=== PATIENT | female | born 1980 | race Caucasian/White ===

== ENCOUNTER 2025-09-28 14:09 | Observation (INO) | payer OTHER, SELFPAY ==
--- NOTE | ~2025-09-28 | CT_ITS ---
EXAMINATION: CT abdomen pelvis w con DATE: 09/28/2025 15:11 INDICATION: Left abdominal pain TECHNIQUE: Computed tomography (CT) of the abdomen and pelvis was performed with intravenous contrast. The dose-length product was 623.45 mGy-cm. Automated exposure control and iterative reconstruction technique were employed. COMPARISON: None. FINDINGS: Lung bases unremarkable. Heart size normal. No significant pleural or pericardial effusion. Fatty infiltration of the liver. The spleen, pancreas, adrenal glands and right kidney are unremarkable. There is delayed left nephrogram with left hydronephrosis secondary to obstructing 5 mm left UVJ stone. Nonobstructive bowel gas pattern. No significant vascular abnormality. No lymphadenopathy. Gallbladder is present. No free air or free fluid. There is grade 1 degenerative spondylolisthesis at L5-S1 secondary to facet hypertrophy. IMPRESSION: 1. Obstructing 5 mm left UVJ stone with mild hydronephrosis and delayed left renal nephrogram. Reviewed, dictated and finalized at location O. RIOR SURFACE INSULATION WORKER IMPRESSION: 1. Obstructing 5 mm left UVJ stone with mild hydronephrosis and delayed left re nal nephrogram.
--- NOTE | ~2025-09-28 | XR_ITS ---
EXAMINATION: XR abdomen/kub 1V DATE: 09/29/2025 09:54 INDICATION: Assess left ureteral stone location TECHNIQUE: A supine view of the abdomen on 2 radiographs was obtained. COMPARISON: None. FINDINGS: Residual excreted contrast from prior CT throughout the mildly dilated left renal collecting system and ureter extending to the level of the ureterovesicular junction presumably obscuring a persistently obstructing stone at this location. No other urolithiasis. Normal bowel gas pattern. Bones are unremarkable. IMPRESSION: 1. Contrast opacified mild left hydroureteronephrosis extending to the ureterovesicular junction and presumably obscuring a persistently obstructing stone at this location. Reviewed, dictated and finalized at location A. MATERIALS HANDLING PLANT OPERATOR IMPRESSION: 1. Contrast opacified mild left hydroureteronephrosis extending to the ureterov esicular junction and presumably obscuring a persistently obstructing stone at this location.
--- OUTSIDE RECORDS SUMMARY | 2025-09-28 14:12 | XMS_ITS | Clinical Summary ---
Author Organization [facility] Address [address] [place] [id number] Care Team Providers Care Industrial Health And Safety Professor Name Role Phone Unavailable Primary Care Provider Unavailabl e Allergies Active Allergy Reactions Criticality Noted Date Comments Lisinopril Unknown 04/30/2024 Social History Tobacco Use Types Packs/Day Years Used Date Smoking Tobacco: Never Assessed Comments Unknown Sex and Gender Information Value Date Recorded Sex Assigned at Not on file Legal Sex Female 3:21 PM CDT Gender Identity Not on file Sexual Orientation Not on file Plan of Treatment Health Maintenance Due Date Last Done Comments Cervical Cancer Screening Pa p Smear (Age 30 to 64) Every 3 Years 1978 Colorectal Cancer Screening Colonoscopy (10 Years) 1978 Annual Physical 1981 Hepatitis C 1996 DTaP, Tdap and Td Vaccines ( 1 - Tdap) 1997 Hepatitis B Vaccines (1 of 3 - 19+ 3-dose series) 1997 Cervical Cancer Screening Pa p with HPV Testing (Age 30 to 64) Every 5 Years 2008 Cervical Cancer Screening with HPV 2008 Mammogram Screening 2018 COVID-19 Vaccine ( - 2024-2 6 season) 2025 Influenza Adult (#1) 2025 Hepatitis A Vaccines Aged Out No long er eligible based on patient's age to complete this topic Meningococcal B Vaccine Aged Out No l onger eligible based on patient's age to complete this topic Meningococcal Vaccine Aged Out No yadira alexx eligible based on patient's age to complete this topic Pneumococcal Vaccine: Pediat rics (0 to 5 Years) and At-Risk Patients (6 to 49 Years) Aged Out No longer eligible b ased on patient's age to complete this topic RSV Immunizations Under 20 Months Aged Out No longer eligible based on patient's age to complete this topic [facility]
--- OUTSIDE RECORDS SUMMARY | 2025-09-28 14:12 | XMS_ITS | Encounter Summary ---
Author Organization [facility] Health Address [address] [place] [address] Care Team Providers Care Wood Boatbuilder Apprentice Name Role Phone Unavailable Primary Care Provider Unavailabl e Prior Encounters Date Type Department Care Team Description 10/26/2019 Converted CPS Chart Documents [facility] [address] [place] [phone] <No scans attached> 10/26/2019 Converted 13x Documents [facility] [id number] [place] [phone] <No scans attached> Plan of Treatment Not on file Procedures Procedure Name Priority Date/Time Associated Diagnosis Comments CANCELLED APPOINTMENT Routine 12/13/2021 12:00 AM PST CANCELLED APPOINTMENT Routine 12/13/2021 12:00 AM PST PERIO MAINTENANCE Routine 09/15/2021 12: 00 AM PST ORAL HYGIENE INSTRUCTIONS Routine 2020 12:00 AM PST TOPICAL APPLICATION OF FLUORIDE VARNISH Routine 09/15/2021 12:00 AM PST ORAL HYGIENE INSTRUCTIONS Routine 2020 12:00 AM PDT 1 MAGDA DECON Routine 06/16/2021 12:00 AM PDT LR PERIODONTAL SCALING AND ROOT PLANING - ONE TO THREE TEETH PER QUADRANT Routine 06/16/2021 12:00 AM PDT UL PERIODONTAL SCALING AND ROOT PLANING - ONE TO THREE TEETH PER QUADRANT Routine 06/16/2021 12:00 AM PDT UR ANTIBACT IRR/QUAD Routine 06/16/2021 12:00 AM PDT UL ANTIBACT IRR/QUAD Routine 06/16/2021 12:00 AM PDT LR ANTIBACT IRR/QUAD Routine 06/16/2021 12:00 AM PDT LL ANTIBACT IRR/QUAD Routine 06/16/2021 12:00 AM PDT TOPICAL APPLICATION OF FLUORIDE VARNISH Routine 06/16/2021 12:00 AM PDT PERIODIC ORAL EVALUATION - ESTABLISHED PATIENT Routine 06/15/2021 12:00 AM PDT BITEWINGS - FOUR RADIOGRAPHIC IMAGES Routine 06/15/2021 12:00 AM PDT ADDITIONAL X-RAY Routine 06/15/2021 12:0 0 AM PDT SINGLE X-RAY Routine 06/15/2021 12:00 AM PDT CANCELLED APPOINTMENT Routine 09/12/2020 12:00 AM PST OFFICE VISIT FOR OBSERVATION (DURING REGULARLY SCHEDULED HOURS) - NO OTHER SERVICES PERFORMED Routine 07/29/2020 12:00 AM PDT TOPICAL APPLICATION OF FLUORIDE VARNISH Routine 04/05/2020 12:00 AM PDT PROPHYLAXIS - ADULT Routine 04/05/2020 1 2:00 AM PDT PERIODIC ORAL EVALUATION - ESTABLISHED PATIENT Routine 04/05/2020 12:00 AM PDT MISSED APPOINTMENT Routine 03/29/2020 12 :00 AM PDT TOPICAL APPLICATION OF FLUORIDE VARNISH Routine 09/15/2019 12:00 AM PST PROPHYLAXIS - ADULT Routine 09/15/2019 1 2:00 AM PST PERIODIC ORAL EVALUATION - ESTABLISHED PATIENT Routine 09/15/2019 12:00 AM PST PANORAMIC RADIOGRAPHIC IMAGE Routine 09/15/2019 12:00 AM PST INTRAORAL - COMPREHENSIVE SERIES OF RADIOGRAPHIC IMAGES Routine 09/15/2019 12:00 AM PST INTRAORAL PHOTO Routine 09/15/2019 12:00 AM PST INTRAORAL PHOTO Routine 09/15/2019 12:00 AM PST INTRAORAL PHOTO Routine 09/15/2019 12:00 AM PST INTRAORAL PHOTO Routine 09/15/2019 12:00 AM PST Visit Diagnoses Not on file
--- OUTSIDE RECORDS SUMMARY | 2025-09-28 14:12 | XMS_ITS | Clinical Summary ---
Author Organization [facility] Health Address [address] [place] [address] Care Team Providers Care Senior Manager Mergers & Acquisitions Name Role Phone Unavailable Primary Care Provider Unavailabl e Social History Tobacco Use Types Packs/Day Years Used Date Smoking Tobacco: Never Assessed Comments Unknown Sex and Gender Information Value Date Recorded Sex Assigned at Not on file Legal Sex Female 2:37 AM PST Gender Identity Not on file Sexual Orientation Not on file Plan of Treatment Not on file
[2025-09-28 14:15] VITALS: BP 187/137; PULSE 72; RESP 24; TEMP 36.7; O2SAT 100
--- NOTE | 2025-09-28 14:21 | ED_ITS ---
HPI - Abdominal Pain General Chief Complaint: Abdominal Pain Stated Complaint: L flank pain Time Seen by Provider: 09/28/25 14:21 Source: patient Mode of arrival: ambulatory Limitations: no limitations History of Present Illness HPI narrative: Sudden onset of left abdominal pain radiating to left flank pain at rest started to hour prior to arrival associated with nausea diaphoresis and restlessness. History of [facility] ED, no history of abdominal surgery, denies any fever chills, diarrhea, constipation or history of abdominal surgery. Patient does not smoke or drink or use drugs. Related Data Home Medications ?Medication ?Instructions ?Recorded ?Confirmed ?Last Taken ?Type dextroamphetamine-amphetamine 10 10 mg PO DAILY 09/28/25 09/27/25 History mg tablet dextroamphetamine-amphetamine 20 20 mg PO DAILY@0630 1 11/29/24 09/28/25 09/27/25 History mg tablet dextroamphetamine-amphetamine 30 30 mg PO DAILY 09/28/25 09/27/25 History mg tablet Allergies Allergy/AdvReac Type Severity Reaction Status Date / Time No Known Allergies Allergy Verified 09/28/25 20:29 Review of Systems 2 Review of Systems: All systems reviewed & are unremarkable except as noted in HPI and below PMFSH Family History Family History Mother Bipolar 1 disorder Father Heart attack Diabetes mellitus Social History Social History Smoking status: Never smoker Alcohol intake: current Drinks per week: 2 Substance use: never Substance use type: does not use Lack of Transportation: No Lack of Food: Never True Current Housing: I Have Housing Concerned About Future Housing: No Difficulty Paying Gas/Electric Bills: No Difficulty Paying for Meds: No Currently Unemployed: No Education: Master's Degree or Higher Difficulty w/ Childcare or Family Care: No Spiritual care concerns: No Exam 2 Narrative: General appearance: Well-developed, well-nourished, restless, unable to sit still Skin: Normal color Head: Normocephalic, nontraumatic Eyes: Clear conjunctiva ENT: Oropharynx normal, ears normal, nose normal Neck: Supple, nontender Chest and respiratory: Airway patent, no respiratory distress, no accessory muscle use Heart: Regular rate/rhythm Abdomen: Soft, tenderness left lower quadrant and left flank, no guarding or rebound, quite bowel sounds Vascular: Normal peripheral pulses, normal capillary refill. Musculoskeletal: Normal range of motion, nontender back Neurologic: Alert and oriented ?3, MANAGER ACCESS is normal as tested, no gross motor deficit Course Consultations Urology: Time of Consult: 17:45 I have discussed the care of this patient with the following provider: A dmit to hospitalist Vital Signs Vital signs: Vital Signs Temperature 36.7 C 09/28/25 14:15 Pulse Rate 72 09/28/25 14:15 Respiratory Rate 24 H 09/28/25 14:15 Blood Pressure 187/137 H 09/28/25 14:15 Pulse Oximetry 100 09/28/25 14:15 Oxygen Delivery Room Air 09/28/25 14:15 Temperature 36.2 C L 09/28/25 20:32 Pulse Rate 75 09/28/25 20:32 Respiratory Rate 20 09/28/25 20:32 Blood Pressure 151/76 H 09/28/25 20:32 Pulse Oximetry 99 09/28/25 20:32 Oxygen Delivery Room Air 09/28/25 14:15 [facility] Narrative Medical decision making narrative: Patient came with sudden onset of left abdomen left flank pain prior to arrival Vital signs showing blood pressure 187/137 respiratory rate 24 otherwise within normal limit Physical examination consistent with tenderness left lower quadrant and left flank Differential diagnosis include kidney stone, urinary tract infection, diverticulitis, colitis, constipation, splenic infarction, renal infarction Blood workup today includes CBC, CMP, lipase showed WBC 12.3, potassium 3.2, otherwise within normal limit Urinalysis no evidence of infection In the ED patient received normal saline, Dilaudid 0.5 followed by Toradol 30 mg followed by Dilaudid 0.5 IV with Zofran. Patient pain keeps coming back. Admit to hospitalist, discussed with DIAGNOSIS LEFT KIDNEY STONE Differential Diagnosis Differential Diagnosis: ABOVE Lab Data [facility] Lab Attestation statement: I personally reviewed the patient's lab results. 09/28/25 14:34 09/28/25 14:34 Labs: Lab Results 09/28/25 09/28/25 09/28/25 Range/Units 14:34 15:49 16:05 WBC 12.3 H (4.5-10.0) K/mm3 RBC 4.87 (4.2-5.4) M/mm3 Hgb 14.4 (12.0-15.0) g/dL Hct 42.3 (37.0-47.0) % MCV 86.9 (80-100) fl MCH 29.6 (26-34) pg MCHC 34.0 (32-36) g/dl RDW 12.4 (11.5-14.5) % Plt Count 390 H (150-375) k/mm3 MPV 10.0 (7.4-10.4) fl Immature Gran % (Auto) 0.5 (0-0.5) % Neut % (Auto) 77.3 H (45.5-73.1) % Lymph % (Auto) 16.7 L (18.3-44.2) % [place] % (Auto) 4.7 (2.6-8.5) % Eos % (Auto) 0.6 (0-4.4) % Baso % (Auto) 0.2 (0.2-1.2) % Lymph # (Auto) 2.04 (0.9-3.2) K/mm3 [place] # (Auto) 0.6 (0.1-0.6) K/mm3 Eos # (Auto) 0.1 (0-0.3) K/mm3 Baso # (Auto) 0.0 (0.0-0.1) K/mm3 Abs Immat Gran (auto) 0.06 H (0.00-0.031) K/mm3 Absolute Neuts (auto) 9.5 H (1.3-6.7) K/mm3 Absolute Nucleated RBC 0.000 (0.0-0.012) K/mm3 Nucleated RBC % 0.0 (0.0-0.2) % Sodium 135 L (137-145) mmol/L Potassium 3.2 L (3.4-5.0) mmol/L Chloride 104 (98-107) mmol/L Carbon Dioxide 17 L (22-30) mmol/L Anion Gap 14 H (4-12) mmol/L BUN 16 (7-17) mg/dL Creatinine 0.82 (0.7-1.0) mg/dL Estim Creat Clear Calc 80 ml/min Estimated GFR > 60 (59 - ) Glucose 150 H (65-110) mg/dL Calcium 9.9 (8.4-10.2) mg/dL Total Bilirubin 0.7 (0.2-1.3) mg/dL AST 33 (14-36) U/L ALT 27 (6-35) U/L Alkaline Phosphatase 80 (38-126) U/L Total Protein 8.5 H (6.3-8.2) g/dL Albumin 4.8 (3.5-5.1) g/dL Lipase 100 (23-300) U/L Urine Color Yellow (Yellow) Urine Appearance Clear (Clear) Urine pH 6.0 (5.0-9.0) Ur Specific [place] > 1.045 H (1.001-1.035) Urine Protein Negative (Negative) mg/dL Urine Glucose (UA) Negative (Negative) mg/dL Urine Ketones 2+ H (Negative) mg/dL Ur Blood (Man) 2+ H (Negative) Urine Nitrate Negative (Negative) Urine Bilirubin Negative (Negative) Urine Urobilinogen 0.2 (<2.0) mg/dL Add Ur Microanalysis Reviewed Leukocyte Esterase Rfl 1+ H (Negative) MYRA/UL Urine RBC 6-10 H (0-2) /hpf Urine WBC 6-10 H (0-3) /hpf Ur Squamous Epith Cells Few (Few) /hpf Urine Bacteria 1+ H /hpf Urine Casts 0-2 POC Urine HCG, Qual Negative (Negative) Imaging Data Radiologist's impression: ITS Impressions Abdomen/Pelvis CT 09/28/25 15:15 IMPRESSION: 1. Obstructing 5 mm left UVJ stone with mild hydronephrosis and delayed left renal nephrogram. Critical Care Time Critical Care Time Critical Care Time: No Discharge Plan Discharge Clinical Impression: Kidney stone on left side Patient Disposition: Still a Patient Condition: Stable
[2025-09-28] MEDS: SODIUM CHLORIDE 0.9% IV 1,000 ML 999 ML IV CONT (14:32)
[2025-09-28] MEDS: HYDROmorphone HCL INJ (*CRX) 1 MG/ML SYR 0.5 MG IV PUSH ×4 (14:34→22:52)
[2025-09-28] MEDS: ONDANSETRON INJ 4 MG/2 ML VIAL IV PUSH (14:35)
[2025-09-28] MEDS: TAMSULOSIN HCL 0.4 MG CAPSULE PO (14:37)
[2025-09-28 14:47] LABS: Hematocrit 42.3 % (37.0-47.0); Hemoglobin 14.4 g/dL (12.0-15.0); Immature Granulocyte Percent A 0.5 % (0-0.5); Lymphocytes Absolute Auto 2.04 K/mm3 (0.9-3.2); Mean Corpuscular HGB Conc 34.0 g/dl (32-36); Mean Corpuscular Hemoglobin 29.6 pg (26-34); Mean Corpuscular Volume 86.9 fl (80-100); Nucleated Red Blood Cells Absolute Auto 0.000 K/mm3 (0.0-0.012); Nucleated Red Blood Cells Perc 0.0 % (0.0-0.2); Platelet Count Result 390 k/mm3 (150-375); Red Blood Count 4.87 M/mm3 (4.2-5.4); White Blood Count 12.3 K/mm3 (4.5-10.0)
[2025-09-28] MEDS: KETOROLAC 30 MG/ML VIAL (*BKC) IV PUSH (14:55)
--- NOTE | 2025-09-28 14:57 | PC.NURSE ---
Patient refusing to give urine at this time-aware that test needed for Ct scan-reports she will sign the waiver-CT is aware
[2025-09-28 14:58] LABS: Alanine Aminotransferase 27 U/L (6-35); Albumin Level 4.8 g/dL (3.5-5.1); Alkaline Phosphatase 80 U/L (38-126); Anion Gap 14 mmol/L (4-12); Aspartate Amino Transferase 33 U/L (14-36); Bilirubin,Total 0.7 mg/dL (0.2-1.3); Blood Urea Nitrogen 16 mg/dL (7-17); Calcium 9.9 mg/dL (8.4-10.2); Carbon Dioxide 17 mmol/L (22-30); Chloride 104 mmol/L (98-107); Estimated CRCL calculation 80 ml/min; Estimated Glomerular Filt Rate > 60; Glucose 150 mg/dL (65-110); Lipase 100 U/L (23-300); Potassium 3.2 mmol/L (3.4-5.0); Sodium 135 mmol/L (137-145); Total Protein 8.5 g/dL (6.3-8.2)
[2025-09-28 15:00] VITALS: BP 188/93; PULSE 63; RESP 20; O2SAT 100
[2025-09-28 16:07] LABS: BEDSIDEPREGUCG Negative (Negative)
[2025-09-28 16:42] LABS: Add Urine Microscopic? YES; Appearance Urine Clear (Clear); Glucose Urine UA Negative (Negative); Leukocyte Esterase Ur 1+ LEU/UL (Negative); Need Manual Microscopic Reviewed; Nitrate Urine Negative (Negative); Non Pathogenic Casts 0-2; Specific Grav Ur > 1.045 (1.001-1.035)
--- OUTSIDE RECORDS SUMMARY | 2025-09-28 16:59 | XMS_ITS | Clinical Summary ---
Author Organization [facility] Address [address] [place] [id number] Care Team Providers Care Human Relations Manager Name Role Phone Unavailable Primary Care Provider [...] patient's age to complete this topic Insurance [facility]
--- OUTSIDE RECORDS SUMMARY | 2025-09-28 16:59 | XMS_ITS | Encounter Summary ---
Author Organization [facility] Health Address [address] [place] [address] Care Team Providers Care Chief Building Inspector Name Role Phone Unavailable Primary Care Provider Unavailabl e Prior Encounters Date Type Department Care Team Description 10/26/2019 Converted CPS Chart Documents [facility] [address] [place] [phone] <No scans attached> 10/26/2019 Converted 13x Documents [facility] [address] [place] [phone] <No scans attached> Plan of Treatment [...]
--- OUTSIDE RECORDS SUMMARY | 2025-09-28 16:59 | XMS_ITS | Clinical Summary ---
Author Organization [facility] Health Address [address] [place] [address] Care Team Providers Care Intellectual Property Paralegal Name Role Phone Unavailable Primary Care Provider [...]
[2025-09-28 17:00] VITALS: BP 126/93; PULSE 93; RESP 18; O2SAT 99
[2025-09-28 18:00] VITALS: BP 145/80; PULSE 74; RESP 21; O2SAT 99
[2025-09-28] MEDS: cefTRIAXone 1 GM in SODIUM CHLORIDE 0.9% IV 50 ML 100 ML IVPB (18:21)
[2025-09-28] MEDS: SODIUM CHLORIDE 0.9% IV 1,000 ML 125 ML IV CONT (18:36)
[2025-09-28 19:44] VITALS: BP 149/84; PULSE 58; RESP 16; TEMP 36.5; O2SAT 98
--- NOTE | 2025-09-28 19:47 | WPCEDHO ---
ED Hand Off Checklist All vitals saved:Y IV Site documented:Y All med administrations documented:Y Triage Note Triage Note Patient here with sudden onset 09/28/25 14:15 left upper abdominal pain that radiates into her flank area, patient denies kidney stone history. Patient moaning and rolling around on stretcher with pain. Allergies No Known Allergies Allergy (Verified 09/28/25 14:31) Active Medications including assessments/comments Hydromorphone HCl (Hydromorphone Hcl Inj (*Crx) 1 Mg/Ml Syr) 0.5 mg IV PUSH Q4H PRN PRN Reason: Pain Rated 7-10 Last Admin: 09/28/25 18:36 Dose: 0.5 mg Documented By: LINDSEY MAR Pain Assessment Document 09/28/25 18:36 LINDSEY (Rec: 09/28/25 18:37 JERADB [id number]) Pain Evaluation Pain Evaluation Assessment Pain Scale Pain Scale Used Numeric (1 - 10) Order Parameters Order Parameters for Pain Level 4-6 (Moderate) Administering this Pain Med Self Report Pain Assessment Reported Pain Level 5 Pain Location Left Modifier Pain Location Abdomen Pain Description Aching,Sharp Pain Frequency Acute,Continuous Pain Radiation Back Pain Aggravating Changing Position Factors Pain Behaviors Grimacing Pain Score Pain Score 5: Self Report Sodium Chloride (Normal Saline Iv) 1,000 mls @ 125 mls/hr IV CONT .Q8H DEE Last Admin: 09/28/25 18:36 Dose: 125 mls/hr Documented By: LINDSEY Infusion/Titration Document 09/28/25 18:36 LINDSEY (Rec: 09/28/25 18:36 JERADB [id number]) Intake IV Site Peripheral Access Right Antecubital Container Volume 1,000 Waste Amount 0 Dosing Infusion Rate 125 Cumulative Dose Not Applicable Increase/Decrease Started Elapsed Time Elapsed Time ( 0m minutes) Administered/Completed Medications Discontinued Medications Hydromorphone HCl (Hydromorphone Hcl Inj (*Crx) 1 Mg/Ml Syr) 0.5 mg IV PUSH ONCE STA Stop: 09/28/25 14:27 Last Admin: 09/28/25 14:34 Dose: 0.5 mg Documented By: LINDSEY Hydromorphone HCl (Hydromorphone Hcl Inj (*Crx) 1 Mg/Ml Syr) 0.5 mg IV PUSH ONCE STA Stop: 09/28/25 16:05 Last Admin: 09/28/25 16:09 Dose: 0.5 mg Documented By: LINDSEY Sodium Chloride (Normal Saline Iv) 1,000 mls @ 999 mls/hr IV CONT .Q1H1M STA Stop: 09/28/25 15:29 Last Infusion: 09/28/25 15:42 Dose: Infused Documented By: Admin: 09/28/25 14:32 Dose: 999 mls/hr Documented By: LINDSEY Ceftriaxone Sodium 1 gm/ (Sodium Chloride) 50 mls @ 100 mls/hr IVPB ONCE STA Stop: 09/28/25 17:52 Last Infusion: 09/28/25 19:00 Dose: Infused Documented By: Admin: 09/28/25 18:21 Dose: 100 mls/hr Documented By: LINDSEY Ketorolac Tromethamine (Ketorolac 30 Mg/Ml Vial (*Bk)) 30 mg IV PUSH ONCE STA Stop: 09/28/25 14:53 Last Admin: 09/28/25 14:55 Dose: 30 mg Documented By: LINDSEY Ondansetron HCl (Ondansetron Inj 4 Mg/2 Ml Vial) 4 mg IV PUSH ONCE STA Stop: 09/28/25 14:27 Last Admin: 09/28/25 14:35 Dose: 4 mg Documented By: LINDSEY Tamsulosin HCl (Tamsulosin Hcl 0.4 Mg Capsule) 0.4 mg PO ONCE ONE Stop: 09/28/25 14:27 Last Admin: 09/28/25 14:37 Dose: 0.4 mg Documented By: LINDSEY Notes 09/28/25 14:57 Nurse Note by Lizy Case Patient refusing to give urine at this time-aware that test needed for Ct scan-reports she will sign the waiver-CT is aware Initialized on 09/28/25 14:57 - END OF NOTE Interventions/Assessments IV / Saline Lock, Insert Start: 09/28/25 14:20 Freq: STAT Status: Active Protocol: Document 09/28/25 14:30 LINDSEY (Rec: 09/28/25 14:30 LINDSEY [id number]) IV Assessment Peripheral Access Right Antecubital IV Catheter Access Initiated IV Insertion Date 09/28/25 IV Insertion Time 14:30 Catheter Gauge 18 IV Insertion 1 Attempts IV Site Assessment WNL IV Care and WNL Maintenance PA: Gastrointestinal Assessment Start: 09/28/25 14:52 Freq: Status: Active Protocol: Document 09/28/25 14:30 TLB (Rec: 09/28/25 18:21 TLB [id number]) GI Assessment Gastrointestinal Nausea,Pain Symptoms Description Tender All Quadrants Bowel Sounds Active Last Vital Signs Temperature 97.7 F 09/28/25 19:44 Pulse Rate 58 L 09/28/25 19:44 Respiratory Rate 16 09/28/25 19:44 Pulse Oximetry 98 09/28/25 19:44 Blood Pressure 149/84 H 09/28/25 19:44 Blood Pressure Mean 105 09/28/25 19:44 Oxygen Delivery Room Air 09/28/25 14:15 Weight 86.36 kg 09/28/25 14:15 Last Result - Abnormals Only WBC 12.3 K/mm3 (4.5-10.0) H 09/28/25 14:34 Plt Count 390 k/mm3 (150-375) H 09/28/25 14:34 Neut % (Auto) 77.3 % (45.5-73.1) H 09/28/25 14:34 Lymph % (Auto) 16.7 % (18.3-44.2) L 09/28/25 14:34 Abs Immat Gran (auto) 0.06 K/mm3 (0.00-0.031) H 09/28/25 14:34 Absolute Neuts (auto) 9.5 K/mm3 (1.3-6.7) H 09/28/25 14:34 Sodium 135 mmol/L (137-145) L 09/28/25 14:34 Potassium 3.2 mmol/L (3.4-5.0) L 09/28/25 14:34 Carbon Dioxide 17 mmol/L (22-30) L 09/28/25 14:34 Anion Gap 14 mmol/L (4-12) H 09/28/25 14:34 Glucose 150 mg/dL (65-110) H 09/28/25 14:34 Total Protein 8.5 g/dL (6.3-8.2) H 09/28/25 14:34 Ur Specific [place] > 1.045 (1.001-1.035) H 09/28/25 15:49 Urine Ketones 2+ mg/dL (Negative) H 09/28/25 15:49 Ur Blood (Man) 2+ (Negative) H 09/28/25 15:49 Leukocyte Esterase Rfl 1+ MYRA/UL (Negative) H 09/28/25 15:49 Urine RBC 6-10 /hpf (0-2) H 09/28/25 15:49 Urine WBC 6-10 /hpf (0-3) H 09/28/25 15:49 Urine Bacteria 1+ /hpf H 09/28/25 15:49 Most Recent Suicide Severity Rating Suicide Severity Rating NO RISK INDICATED 09/28/25 14:15
[2025-09-28 20:20] VITALS: BMI 31.6
--- NOTE | 2025-09-28 20:21 | ADMGEN ---
This patient, Rianna Raymundo, was admitted to Medical Room 246-. Patient/family oriented to hospital policies and general routines including ID bracelet, bed and alarms, visiting hours, pain management, procedures, bathroom and other care routines, personal items, smoking policy, room service/diet, and visiting hours. Information on how to activate the Rapid Response Team has been discussed. Patient/Family are encouraged to report perceived risks to care and to ask questions if they do not understand what they are told or what they should do.
[2025-09-28 20:32] VITALS: BP 151/76; PULSE 75; RESP 20; TEMP 36.2; O2SAT 99
[2025-09-29] MEDS: SODIUM CHLORIDE 0.9% IV 1,000 ML 125 ML IV CONT (02:22)
[2025-09-29 05:16] LABS: Hematocrit 38.1 % (37.0-47.0); Hemoglobin 12.6 g/dL (12.0-15.0); Mean Corpuscular HGB Conc 33.1 g/dl (32-36); Mean Corpuscular Hemoglobin 29.2 pg (26-34); Mean Corpuscular Volume 88.2 fl (80-100); Platelet Count Result 320 k/mm3 (150-375); Red Blood Count 4.32 M/mm3 (4.2-5.4); White Blood Count 8.8 K/mm3 (4.5-10.0)
[2025-09-29 05:40] LABS: Anion Gap 6 mmol/L (4-12); Blood Urea Nitrogen 12 mg/dL (7-17); Calcium 8.5 mg/dL (8.4-10.2); Carbon Dioxide 22 mmol/L (22-30); Chloride 107 mmol/L (98-107); Estimated CRCL calculation 61 ml/min; Estimated Glomerular Filt Rate 53; Glucose 83 mg/dL (65-110); Potassium 3.1 mmol/L (3.4-5.0); Sodium 135 mmol/L (137-145)
[2025-09-29 05:45] VITALS: BP 129/87; PULSE 87; RESP 20; TEMP 36.6; O2SAT 96
--- NOTE | 2025-09-29 07:05 | P.HP_ITS ---
H&P: HPI History of Present Illness Date/Time: 09/29/25 07:05 Chief Complaint: left flank pain Review of Systems Review of Systems: All systems reviewed & are unremarkable except as noted in HPI and below PMFSH Family History Family History Mother Bipolar 1 disorder Father Heart attack Diabetes mellitus Social History Social History Smoking status: Never smoker Alcohol intake: current Drinks per week: 2 Substance use: never Substance use type: does not use Lack of Transportation: No Lack of Food: Never True Current Housing: I Have Housing Concerned About Future Housing: No Difficulty Paying Gas/Electric Bills: No Difficulty Paying for Meds: No Currently Unemployed: No Education: Master's Degree or Higher Difficulty w/ Childcare or Family Care: No Spiritual care concerns: No Meds Home Medications and Allergies Home Medications ?Medication ?Instructions ?Recorded ?Confirmed ?Type dextroamphetamine-amphetamine 10 10 mg PO DAILY 09/28/25 History mg tablet dextroamphetamine-amphetamine 20 20 mg PO DAILY@0630 1 11/29/24 09/28/25 History mg tablet dextroamphetamine-amphetamine 30 30 mg PO DAILY 09/28/25 History mg tablet progesterone 1 cap PO HS 09/28/25 5 History tirzepatide 7.5 mg subcut WEEKLY 5 09/28/25 History Allergies Allergy/AdvReac Type Severity Reaction Status Date / Time No Known Allergies Allergy Verified 09/28/25 20:29 Vital Signs Vital Signs - 24 hr 09/28/25 14:15 09/28/25 15:00 09/28/25 17:00 Temperature 98.1 F Pulse Rate 72 63 93 Respiratory Rate 24 H 20 18 Blood Pressure 187/137 H 188/93 H 126/93 H Pulse Oximetry 100 100 99 Oxygen Delivery Room Air 09/28/25 18:00 09/28/25 19:44 09/28/25 20:32 Temperature 97.7 F 97.1 F L Pulse Rate 74 58 L 75 Respiratory Rate 21 H 16 20 Blood Pressure 145/80 H 149/84 H 151/76 H Pulse Oximetry 99 98 99 Oxygen Delivery 09/28/25 23:00 09/29/25 05:45 Temperature 97.8 F Pulse Rate 87 Respiratory Rate 20 Blood Pressure 129/87 Pulse Oximetry 96 Oxygen Delivery Room Air Exam Narrative: General: NAD Eyes: EOMI ENT: neck supple Cardiovascular: Regular rate and rhythm Respiratory: Clear to auscultation, respirations even and unlabored on RA Gastrointestinal: Soft, non tender Genitourinary: no suprapubic tenderness Musculoskeletal: No edema Skin: warm, dry Neuro: Alert. Psych: Mood appropriate Results Labs Labs: Short CBC 09/28/25 09/29/25 Range/Units 14:34 04:36 WBC 12.3 H 8.8 (4.5-10.0) K/mm3 Hgb 14.4 12.6 (12.0-15.0) g/dL Hct 42.3 38.1 (37.0-47.0) % Plt Count 390 H 320 (150-375) k/mm3 BMP 09/28/25 09/29/25 14:34 04:36 Sodium 135 L 135 L Potassium 3.2 L 3.1 L Chloride 104 107 Carbon Dioxide 17 L 22 BUN 16 12 Creatinine 0.82 1.10 H Glucose 150 H 83 Calcium 9.9 8.5 Liver Function 09/28/25 Range/Units 14:34 Total Bilirubin 0.7 (0.2-1.3) mg/dL AST 33 (14-36) U/L ALT 27 (6-35) U/L Alkaline Phosphatase 80 (38-126) U/L Albumin 4.8 (3.5-5.1) g/dL Urine 09/28/25 Range/Units 15:49 Urine Color Yellow (Yellow) Urine Appearance Clear (Clear) Urine pH 6.0 (5.0-9.0) Ur Specific [place] > 1.045 H (1.001-1.035) Urine Protein Negative (Negative) mg/dL Urine Glucose (UA) Negative (Negative) mg/dL Assessment and Plan Assessment and plan (1) Kidney stone on left side: Code(s): N20.0 - Calculus of kidney Status: Acute Assessment and Plan: - CT A/P with obstructing 5mm left UVJ with mild hydronephrosis - UA with 1+ LE, 6-10 WBC - continue IV Rocephin (2) Hydronephrosis, left: Code(s): N13.30 - Unspecified hydronephrosis Status: Acute Assessment and Plan: - CT as above (3) Hypokalemia: Code(s): E87.6 - Hypokalemia Status: Acute Assessment and Plan: - K+ 3.1 (4) GIFTY (acute kidney injury): Code(s): N17.9 - Acute kidney failure, unspecified Status: Acute Assessment and Plan: - Cr 1.1 - Baseline 0.82 Plan DVT prophylaxis: Dispo: Hospitalist MATTHEW Advance Care Plan I have confirmed that the patient's Advanced Care Plan is present, code status is documented, or surrogate decision maker is listed in patient medical record.: Yes Medication Reconciliation I have utilized all available resources to obtain, update and review the patients current medications (includes all prescriptions, OTC, herbals, cannabis, and nutritional supplements).: Yes The patient is not eligible for med reconciliation; the patient is in a emergent medical situation where delaying treatment would jeopardize the patients health.: No
[2025-09-29] MEDS: POTASSIUM CHLORIDE INJ 40 MEQ in SODIUM CHLORIDE 0.9% IV 500 ML 130 MEQ IVPB (09:26)
[2025-09-29] MEDS: TAMSULOSIN HCL 0.4 MG CAPSULE PO (09:31)
[2025-09-29 11:28] VITALS: O2SAT 97
--- NOTE | 2025-09-29 12:58 | WPDURCON ---
Assessment and Plan Assessment and plan (1) Kidney stone on left side: Code(s): N20.0 - Calculus of kidney Status: Acute (2) Hydronephrosis, left: Code(s): N13.30 - Unspecified hydronephrosis Status: Acute Plan -CT AP shows Obstructing 5 mm left UVJ stone with mild hydronephrosis -wbc wnl -cr 1.10 -KUB today shows the stone is still at the uvj. patient has had pain relief with no meds today. -Patient is ok to discharge. She is to strain her urine and bring stone with her to outpatient follow up in 2-4 weeks. -She should return to ER for fever/chills or intractable pain. -She should be discharged with tamsulosin daily, pain control meds, and antibiotic coverage. tailor to culture once resulted. Urology Consult Note HPI Date Seen: 09/29/25 Requesting Physician: Travis Bergman MD Primary Care Provider: PHYSICIAN NOT ON STAFF Consult Narrative Narrative: Rianna Raymundo is a 45 year old female Sudden onset of left abdominal pain radiating to left flank pain at rest started to hour prior to arrival associated with nausea diaphoresis and restlessness. History of ADH ED, no history of abdominal surgery, denies any fever chills, diarrhea, constipation or history of abdominal surgery. Patient reports she is much more comfortable today and the pain is much better. Review of Systems Review of Systems: flank pain has improved greatly today. All systems reviewed & are unremarkable except as noted in HPI and below PMFSH Family History Family History Mother Bipolar 1 disorder Father Heart attack Diabetes mellitus Social History Social History Smoking status: Never smoker Alcohol intake: current Drinks per week: 2 Substance use: never Substance use type: does not use Lack of Transportation: No Lack of Food: Never True Current Housing: I Have Housing Concerned About Future Housing: No Difficulty Paying Gas/Electric Bills: No Difficulty Paying for Meds: No Currently Unemployed: No Education: Master's Degree or Higher Difficulty w/ Childcare or Family Care: No Spiritual care concerns: No Meds Home Medications and Allergies Home Medications ?Medication ?Instructions ?Recorded ?Confirmed ?Type dextroamphetamine-amphetamine 10 10 mg PO DAILY 09/28/25 09/28/25 History mg tablet dextroamphetamine-amphetamine 20 20 mg PO DAILY@0630 09/28/25 09/28/25 History mg tablet dextroamphetamine-amphetamine 30 30 mg PO DAILY 09/28/25 09/28/25 History mg tablet progesterone 1 cap PO HS 09/28/25 09/28/25 History tirzepatide 7.5 mg subcut WEEKLY 09/28/25 09/28/25 History Allergies Allergy/AdvReac Type Severity Reaction Status Date / Time No Known Allergies Allergy Verified 09/28/25 20:29 Vital Signs Vital Signs - 24 hr 09/28/25 14:15 09/28/25 15:00 09/28/25 17:00 Temperature 98.1 F Pulse Rate 72 63 93 Respiratory Rate 24 H 20 18 Blood Pressure 187/137 H 188/93 H 126/93 H Pulse Oximetry 100 100 99 Oxygen Delivery Room Air 09/28/25 18:00 09/28/25 19:44 09/28/25 20:32 Temperature 97.7 F 97.1 F L Pulse Rate 74 58 L 75 Respiratory Rate 21 H 16 20 Blood Pressure 145/80 H 149/84 H 151/76 H Pulse Oximetry 99 98 99 Oxygen Delivery 09/28/25 23:00 09/29/25 05:45 09/29/25 09:30 Temperature 97.8 F Pulse Rate 87 Respiratory Rate 20 Blood Pressure 129/87 Pulse Oximetry 96 Oxygen Delivery Room Air Room Air 09/29/25 11:28 Temperature Pulse Rate Respiratory Rate Blood Pressure Pulse Oximetry 97 Oxygen Delivery Room Air Exam Const: General: comfortable and no acute distress HENMT: Face/Nose/Sinus: Normal nares present Eyes: General: appearance normal, both eyes and all related structures Pupils: Equal, round and reactive pupils present Resp: Effort & Inspection: normal respiratory effort Skin: General skin exam: normal color Neuro: General: gait normal Speech: normal speech Psych: Speech and movement: Normal speech and movement present Affect: normal affect Results Labs 09/29/25 04:36 09/29/25 04:36 Labs: Short CBC 09/28/25 09/29/25 Range/Units 14:34 04:36 WBC 12.3 H 8.8 (4.5-10.0) K/mm3 Hgb 14.4 12.6 (12.0-15.0) g/dL Hct 42.3 38.1 (37.0-47.0) % Plt Count 390 H 320 (150-375) k/mm3 BMP 09/28/25 09/29/25 14:34 04:36 Sodium 135 L 135 L Potassium 3.2 L 3.1 L Chloride 104 107 Carbon Dioxide 17 L 22 BUN 16 12 Creatinine 0.82 1.10 H Glucose 150 H 83 Calcium 9.9 8.5 Liver Function 09/28/25 Range/Units 14:34 Total Bilirubin 0.7 (0.2-1.3) mg/dL AST 33 (14-36) U/L ALT 27 (6-35) U/L Alkaline Phosphatase 80 (38-126) U/L Albumin 4.8 (3.5-5.1) g/dL Urine 09/28/25 Range/Units 15:49 Urine Color Yellow (Yellow) Urine Appearance Clear (Clear) Urine pH 6.0 (5.0-9.0) Ur Specific [place] > 1.045 H (1.001-1.035) Urine Protein Negative (Negative) mg/dL Urine Glucose (UA) Negative (Negative) mg/dL
[2025-09-29] MEDS: ACETAMINOPHEN 325 MG TABLET 650 MG PO (14:16)
--- NOTE | 2025-09-29 14:35 | P.SS_ITS ---
Same Day Admit/Disch: HPI History of Present Illness Chief complaint: Left renal stone, urinary tract infection of Narrative: Rianna Raymundo is a 45 year old female with PMH of ADHD who presented to the ER with complaints of left flank pain. Patient states her symptoms began suddenly yesterday and were associated with nausea. Also is complaining of some dysuria and frequency. Denies fevers, chills, vomiting, chest pain, shortness of breath. Patient was admitted for further urologic evaluation. In ED, CT A/P with obstructing 5mm left UVJ with mild hydronephrosis. UA with 1+ LE, 6-10 WBC, K+ 3.1, Cr. 1.1. [facility] Family History Family History Mother Bipolar 1 disorder Father Heart attack Diabetes mellitus Social History Social History Smoking status: Never smoker Alcohol intake: current Drinks per week: 2 Substance use: never Substance use type: does not use Lack of Transportation: No Lack of Food: Never True Current Housing: I Have Housing Concerned About Future Housing: No Difficulty Paying Gas/Electric Bills: No Difficulty Paying for Meds: No Currently Unemployed: No Education: Master's Degree or Higher Difficulty w/ Childcare or Family Care: No Spiritual care concerns: No Same Day Admit/Disch: Med Pre-admit Medications Home Medications ?Medication ?Instructions ?Recorded ?Confirmed ?Type dextroamphetamine-amphetamine 10 10 mg PO DAILY 09/28/25 History mg tablet dextroamphetamine-amphetamine 20 20 mg PO DAILY@0630 1 11/29/24 09/28/25 History mg tablet dextroamphetamine-amphetamine 30 30 mg PO DAILY 09/28/25 History mg tablet progesterone 1 cap PO HS 09/28/25 5 History tirzepatide 7.5 mg subcut WEEKLY 5 09/28/25 History acetaminophen 325 mg tablet 650 mg (2 x 325 mg) PO Q4H PRN 09/29/25 Rx Mild Pain (1-3) Or Fever 30 days #100 tabs cefpodoxime 200 mg tablet 200 mg PO BID #14 tabs 09/29 Rx fluconazole 150 mg tablet 150 mg PO ONCE #1 tablet Rx hydrocodone 5 mg-acetaminophen 325 1 tablet PO Q6H PRN pain #12 tabs 09/29/25 Rx mg tablet tamsulosin 0.4 mg capsule 0.4 mg PO QAM 14 days #14 ca ps 09/29/25 Rx Review of Systems Review of Systems All systems reviewed & are unremarkable except as noted in HPI and below Exam Narrative: General: NAD Eyes: EOMI ENT: neck supple Cardiovascular: Regular rate and rhythm Respiratory: Clear to auscultation, respirations even and unlabored on RA Gastrointestinal: Soft, non tender, mild L-sided abdominal tenderness Genitourinary: no suprapubic tenderness Musculoskeletal: No edema Skin: warm, dry Neuro: Alert. Psych: Mood appropriate DS: Data Data Completed and Pending Completed studies during hospitalization: ITS Impressions Abdomen/Pelvis CT 09/28/25 15:15 IMPRESSION: 1. Obstructing 5 mm left UVJ stone with mild hydronephrosis and delayed left renal nephrogram. Abdomen X-Ray 09/29/25 10:04 IMPRESSION: 1. Contrast opacified mild left hydroureteronephrosis extending to the ureterovesicular junction and presumably obscuring a persistently obstructing stone at this location. Labs on day of discharge: Labs from last 24 hours 09/29/25 09/28/25 09/28/25 04:36 16:05 15:49 WBC 8.8 RBC 4.32 Hgb 12.6 Hct 38.1 MCV 88.2 MCH 29.2 MCHC 33.1 RDW 12.5 Plt Count 320 MPV 10.6 H Immature Gran % (Auto) Neut % (Auto) Lymph % (Auto) [place] % (Auto) Eos % (Auto) Baso % (Auto) Lymph # (Auto) [place] # (Auto) Eos # (Auto) Baso # (Auto) Abs Immat Gran (auto) Absolute Neuts (auto) Absolute Nucleated RBC Nucleated RBC % Sodium 135 L Potassium 3.1 L Chloride 107 Carbon Dioxide 22 Anion Gap 6 BUN 12 Creatinine 1.10 H Estim Creat Clear Calc 61 Estimated GFR 53 L Glucose 83 Calcium 8.5 Total Bilirubin AST ALT Alkaline Phosphatase Total Protein Albumin Lipase Urine Color Yellow Urine Appearance Clear Urine pH 6.0 Ur Specific [place] > 1.045 H Urine Protein Negative Urine Glucose (UA) Negative Urine Ketones 2+ H Ur Blood (Man) 2+ H Urine Nitrate Negative Urine Bilirubin Negative Urine Urobilinogen 0.2 Add Ur Microanalysis Reviewed Leukocyte Esterase Rfl 1+ H Urine RBC 6-10 H Urine WBC 6-10 H Ur Squamous Epith Cells Few Urine Bacteria 1+ H Urine Casts 0-2 POC Urine HCG, Qual Negative 09/28/25 14:34 WBC 12.3 H RBC 4.87 Hgb 14.4 Hct 42.3 MCV 86.9 MCH 29.6 MCHC 34.0 RDW 12.4 Plt Count 390 H MPV 10.0 Immature Gran % (Auto) 0.5 Neut % (Auto) 77.3 H Lymph % (Auto) 16.7 L [place] % (Auto) 4.7 Eos % (Auto) 0.6 Baso % (Auto) 0.2 Lymph # (Auto) 2.04 [place] # (Auto) 0.6 Eos # (Auto) 0.1 Baso # (Auto) 0.0 Abs Immat Gran (auto) 0.06 H Absolute Neuts (auto) 9.5 H Absolute Nucleated RBC 0.000 Nucleated RBC % 0.0 Sodium 135 L Potassium 3.2 L Chloride 104 Carbon Dioxide 17 L Anion Gap 14 H BUN 16 Creatinine 0.82 Estim Creat Clear Calc 80 Estimated GFR > 60 Glucose 150 H Calcium 9.9 Total Bilirubin 0.7 AST 33 ALT 27 Alkaline Phosphatase 80 Total Protein 8.5 H Albumin 4.8 Lipase 100 Urine Color Urine Appearance Urine pH Ur Specific [place] Urine Protein Urine Glucose (UA) Urine Ketones Ur Blood (Man) Urine Nitrate Urine Bilirubin Urine Urobilinogen Add Ur Microanalysis Leukocyte Esterase Rfl Urine RBC Urine WBC Ur Squamous Epith Cells Urine Bacteria Urine Casts POC Urine HCG, Qual DS: Summary Hospital Course Reason for hospitalization: - L renal stone Hospital Course: Rianna Raymundo is a 45-year-old female with a history of ADHD who presented to the emergency department with sudden onset left flank pain radiating to the abdomen, associated with nausea, dysuria, and urinary frequency. She denied fevers, chills, vomiting, chest pain, or shortness of breath. In the ED, CT abdomen/pelvis demonstrated an obstructing 5 mm left ureterovesical junction stone with mild left hydronephrosis. Urinalysis showed 1+ leukocyte esterase with 6?10 WBCs. Initial labs were notable for hypokalemia (K 3.1) and a mild acute kidney injury with creatinine 1.1 compared to a baseline of 0.82. She was admitted for pain control, electrolyte management, and urologic evaluation. During hospitalization, she received IV fluids, IV potassium replacement, and IV ceftriaxone. Urology was consulted and recommended conservative management, as the patient?s pain significantly improved and she remained afebrile with stable vital signs and no leukocytosis. Renal function remained stable, and potassium was repleted. Given clinical improvement, she was deemed appropriate for discharge. She was transitioned to oral cefpodoxime for a total of 7 days, started on tamsulosin, and provided pain control medications. She was instructed to strain her urine, return for fever, chills, or intractable pain, and follow up with urology in 2?4 weeks. Urine culture results will be followed after discharge. Instructed to obtain repeat BMP in 7 days. Discharged home in stable condition. Time Spent with Patient Time attestation: Total time spent providing and/or coordinating discharge services: Time spent: Greater than 30 minutes DS: Admitting Diagnosis Discharge Date 09/29/25 Admitting Diagnosis - L renal stone - GIFTY - hypokalemia Discharge Plan Discharge Attending physician on discharge: Travis Bergman Consulting providers: Sarah, Christy; Donald Austin; Jayla Gray. Discharging Clinician: Jayla Gray Patient Disposition: Home Activity: may shower Diet: as tolerated Discharge Instructions: Diagnosis * Obstructed left kidney stone with associated urinary tract infection Medications * Pain control: * Use?acetaminophen (Tylenol)?over the counter for pain. * Do NOT exceed 4,000 mg of acetaminophen in 24 hours, including acetaminophen contained in combination medications. * [place]?may be used for breakthrough pain as prescribed (contains acetaminophen?count toward daily total). * Avoid NSAIDs, including?ibuprofen (Advil, Motrin),?naproxen (Aleve),?d iclofenac, and?ketorolac (Toradol). * Take antibiotics exactly as prescribed until completed. Activity and Diet * Drink plenty of fluids unless otherwise instructed. * Resume activity as tolerated. Stone Management * Strain all urine?and save any stone fragments for urology follow-up. When to Seek Care * Fever >=00.4?F (38?C), chills * Worsening or uncontrolled pain * Nausea or vomiting preventing oral intake * Difficulty urinating, decreased urine output, or blood clots in urine * New or worsening flank pain Follow-Up * Follow up with?Urology?in 2- 4 weeks. * Follow up with primary care in 1 week. Have lab work repeated to recheck kidney function prior to this appointment. * We will follow your urine culture results and call you if any antibiotic changes need to be made. If you have questions or concerns, contact your care team. Patient Instructions: Antibiotic Form Patient Language: Kosovan Stand Alone Forms: General Discharge Information Follow-up/Referrals: Coster, Christy [Other] - Call for Appointment Referral Note: 1 week, repeat BMP to recheck kidney function Shannon Khan APRN [Advanced Practice Nurse, Urology] - Call for Appointment Referral Note: 2-4 weeks Discharge Medications: New acetaminophen 325 mg Tablet 650 mg PO Q4H PRN (Reason: Mild Pain (1-3) Or Fever) 30 Days Qty: 100 0RF tamsulosin 0.4 mg Capsule 0.4 mg PO QAM 14 Days Qty: 14 0RF hydrocodone-acetaminophen 5-325 mg tablet 1 tablet PO Q6H PRN (Reason: pain) Qty: 12 0RF cefpodoxime 200 mg tablet 200 mg PO BID Qty: 14 0RF Rx Instructions: must administer with a meal/food fluconazole 150 mg tablet 150 mg PO ONCE Qty: 1 0RF Rx Instructions: as a single dose Continued dextroamphetamine-amphetamine 20 mg tablet 20 mg PO DAILY@0630 dextroamphetamine-amphetamine 30 mg tablet 30 mg PO DAILY Patient Comments: 10 am dextroamphetamine-amphetamine 10 mg tablet 10 mg PO DAILY Patient Comments: 3pm progesterone 200 mg 1 cap PO HS tirzepatide 16.6 mg 7.5 mg subcut WEEKLY Rx Instructions: weekly on saturday Date of admission: 09/28/25 17:46 Primary Care Provider: PHYSICIAN NOT ON STAFF,NONSTAFF Admitting Provider: Travis Bergman Attending physician on admission: Travis Bergman Condition: Stable Hospitalist MIPS Advance Care Plan I have confirmed that the patient's Advanced Care Plan is present, code status is documented, or surrogate decision maker is listed in patient medical record.: Yes Medication Reconciliation I have utilized all available resources to obtain, update and review the patients current medications (includes all prescriptions, OTC, herbals, cannabis, and nutritional supplements).: Yes The patient is not eligible for med reconciliation; the patient is in a emergent medical situation where delaying treatment would jeopardize the patients health.: No
== END 2025-09-29 14:30 | disposition home or self-care (01) ==
LOC: ANHED 17:45 → ANH2MED 19:29
PROVIDERS: Internal Medicine; Physician Assistant; Admitting Provider Internal Medicine; Emergency Provider Emergency Medicine; Visit Provider Internal Medicine
DX: N20.0 Calculus of kidney (principal); N13.30 Unspecified hydronephrosis; Z79.85 Long-term (current) use of injectable non-insulin antidiabetic drugs
CPT/HCPCS: 36415; 74018; 74177; 80048; 80053; 81001; 81025; 83690; 85025; 85027; 87086; 96361; 96365; 96374; 96375; 96376; 99285; A9270; G0378; J0696; J1171; J1885; J2405; J3480; J7030; J7040; Q9967

== ENCOUNTER 2025-10-01 01:05 | Emergency (ER) | payer OTHER, SELFPAY ==
--- NOTE | ~2025-10-01 | CT_ITS ---
CT ABDOMEN AND PELVIS WITHOUT CONTRAST Clinical History: UVJ stone on CT 09/28, c/f worsening/no improvement Comparison: CT 09/28/2025 Technique: Unenhanced axial images lung bases to symphysis pubis Coronal, sagittal reformats CT images acquired with automatic exposure control for dose reduction DLP: 306 mGy-cm Findings: Without intravenous contrast, sensitivity for detecting visceral parenchymal abnormalities decreased. Lung bases: Clear. Visualized heart and pericardium: Unremarkable. Liver: Unremarkable. Gallbladder: Unremarkable. Spleen: Unremarkable. Pancreas: Unremarkable. Adrenal glands: Unremarkable. Kidneys: Right kidney- No hydronephrosis. No renal stones. Left kidney- hydronephrosis. Tiny stone. Trace residual cortical enhancement and ureteral contrast. Distal esophagus/stomach: Unremarkable. Small bowel loops: Normal caliber and wall thickness. Colon: Normal caliber and wall thickness. Normal RLQ appendix. Nodes: No enlarged nodes. Peritoneum: No ascites. No free intraperitoneal air. Urinary bladder: 4 mm stone left UVJ. Uterus: Unremarkable. Adnexa: No masses. Bones: No acute bony abnormality. Soft tissues: Unremarkable. Unopacified abdominal aorta: No aneurysmal dilatation. IMPRESSION: 1. No significant change from 3 days prior with persistent 4 mm stone left UVJ with hydronephrosis. Reviewed, dictated and finalized at location R. ER DISTILLERY
--- OUTSIDE RECORDS SUMMARY | 2025-10-01 01:07 | XMS_ITS | Continuity of Care Document ---
Author Name [facility] Organization [facility] Care Team Providers Care Fall Internship Name Role Phone [facility] Unavailable Unavailable Problems Combined list of problems from Department of Defense and Veterans Affairs facilities. It does not include entries that were removed or entered in error. Problem Status Onset Date Problem Type Date of Resolution Comments Source Attention-deficit hyperactivity disorder, combined type Active 09/16/2025 Diagnosis [facility]-Af-C -375 [facility] Attention-deficit hyperactivity disorder, other type Active 04/29/2018 Condition [facility] Abnormal cervical Papanicolaou smear Active Condition 6130- Af-C -375Th [facility]co [facility] Attention-deficit hyperactivity disorder, combined type Active Condition 30-Af-C -375 [facility] Unspecified menopausal and perimenopausal disorder Active Condition 30-Af-C -375Th [facility]co [facility] visit for: screening exam Inactive Condition [facility] Medications Combined list of outpatient medications from Department of Defense and Veterans Affairs facilities.Medications provided include 1) outpatient medications from the last 15 months, and 2) patient-reported medications. Medication Details Route Status Indication(s) Patie nt Instructions Prescription Expires Prescription Number Last Dispense Date Ordering Provider Order Date Order Qty Source Adderall 15 mg oral tablet 180 tab(s), 0 Refill(s ), 0 total refill(s ), Soft Stop Discont inued 09/18/20232022 6130C-A f-C-375 [facility] Adderall 20 mg oral tablet 90 tab(s), 0 Refill(s ), 0 total refill(s ), Soft Stop Discont inued 09/18/20232022 6130C-A f-C-375 [facility] Adderall 30 mg oral tablet 30 tab(s), 0 Refill(s ), 0 total refill(s ), Soft Stop Discont inued 09/18/[address]23[address] [place] [address] [facility] Adderall 30 mg tablet See Rx Instruct ions, # 30 EA, 0 total refill(s ), Hard Stop Complet ed 04/23/2023 3 2022 30.0 Ambulat ory Pharmac y Afrin 0.05% nasal spray 2 spray(s) , Nostril- Both, BID, Do not use for more than 3 days., # 30 mL, 0 total refill(s ), Jeremias valles, Pharmacy : [facility] Nostri l-Both (into the nose) Discont inued Chronic rhinitis 09/21/2025 [address] [place] [address] amoxicillin -clavulanat e 875 mg-125 mg oral tablet 2 Unknown, Unknown, 0 Refill(s ), 0 total refill(s ), Soft Stop Discont inued 09/18/2023[address] [place] [address] amoxicillin -clavulanat e 875 mg-125 mg oral tablet 0 total refill(s ) Discont inued 07/05/20232022 No Facilit y Access amphetamine -dextroamph etamine 10 mg tablet See Rx Instruct ions, # 12 EA, 0 total refill(s ), Hard Stop Complet ed 04/23/2023 3 2022 12.0 Ambulat ory Pharmac y amphetamine -dextroamph etamine 20 mg tablet See Rx Instruct ions, 0, # 45 EA, 0 total refill(s ), Hard Stop Complet ed 05/01/2023 3 2022 45.0 Ambulat ory Pharmac y amphetamine -dextroamph etamine 20 mg tablet See Rx Instruct ions, # 45 EA, 0 total refill(s ), Hard Stop Complet ed 05/01/2023 3 2022 45.0 Ambulat ory Pharmac y amphetamine -dextroamph etamine 30 mg tablet See Rx Instruct ions, # 30 EA, 0 total refill(s ), Hard Stop Complet ed 04/23/2023 3 2022 30.0 Ambulat ory Pharmac y Augmentin 875 mg-125 mg oral tablet 1 tab(s), Oral, every 12 hr, X 7 days, # 14 tab(s), 0 total refill(s ), 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, 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, 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[facility] , Respirat ory, sinusiti s Oral (given by mouth) Complet ed Chronic rhinitis 09/29/2024 4 2023 14.0 6130C-A f-C-375 [facility] bisacodyl 5 mg oral tablet 4 tab(s), Oral, Daily, Take per colonosc opy prep directio ns: Take two tablets at 4pm and two tablets at 8pm, # 4 tab(s), 0 total refill(s ), Maintenestephania hernandese, Pharmacy : [facility] Oral (given by mouth) Discont inued 09/21/20252024 4.0 6130C-A f-C-375 Th [facility] Contrave 8 mg-90 mg oral tablet, extended release 1 tab(s), Oral, every morning, Take 1 tablet in morning for 1 week; increase as tolerate d in weekly interval s: 1 tablet twice daily for 1 week; then 2 tablets in the morning and 1 tablet in the evening for 1 week; and then 2 tablets twice daily (max dose 4 tablets/ day), # 360 tab(s), 0 total refill(s ), Maintena gretae, CaseId:[id number]; T1 tablet in morning for 1 week; increase as tolerate d in weekly interval s: 1 tab BID for 1 week; then 2 tabs in the AM and 1 tab in the evening for 1 week; and then 2 tablets BID, Pharmacy : [facility] Oral (given by mouth) Discont inued Obesity, unspecified 05/29/20242023 360.0 6130C-A f-C-375 Th [facility] Contrave 8 mg-90 mg oral tablet, extended release See Instruct ions, Take 2 tablets twice daily (max dose 4 tablets/ day), # 360 tab(s), 0 total refill(s ), Maintena nce, CaseId:[id number]; Take 2 tablets twice daily (max dose 4 tablets/ day), Pharmacy : [facility] Discont inued Obesity, unspecified 12/11/2024 4 2024 360.0 6130C-A f-C-375 Th [facility] dextroamphe tamine-amph etamine 10 mg oral tablet 1 tab(s), Oral, Daily, Daily in the afternoo n, # 90 tab(s), 0 total refill(s ), [facility], Pharmacy : [facility] Oral (given by mouth) Discont inued Attention-defi cit hyperactivity disorder, combined type 05/29/2024 4 2023 90.0 6130C-A f-C-375 Th [facility] dextroamphe tamine-amph etamine 10 mg oral tablet 1 tab(s), Oral, Daily, Daily in the afternoo n, # 90 tab(s), 0 total refill(s ), [facility], Pharmacy : [facility] Oral (given by mouth) Discont inued Attention-defi cit hyperactivity disorder, combined type 03/17/2024 4 2023 90.0 6130C-A f-C-375 Th [facility] dextroamphe tamine-amph etamine 10 mg oral tablet See Instruct ions, 1 tab(s) Oral take in the early afternoo n daily, # 30 cap(s), 0 total refill(s ), [facility], Pharmacy : [id number] Discont inued 03/09/20252024 30.0 6130C-A f-C-375 Th [facility] dextroamphe tamine-amph etamine 10 mg oral tablet 1 tab(s), Oral, Daily, Daily in the afternoo n at 2 PM, # 90 tab(s), 0 total refill(s ), [facility], Pharmacy : [facility] Oral (given by mouth) Discont inued Attention-defi cit hyperactivity disorder, combined type 06/11/2025 5 2024 90.0 6130C-A f-C-375 Th [facility] dextroamphe tamine-amph etamine 10 mg oral tablet 1 tab(s), Oral, Daily, Daily in the afternoo n at 2 PM, # 90 tab(s), 0 total refill(s ), Maintena [facility], Pharmacy : [facility] Oral (given by mouth) Discont inued Attention-defi cit hyperactivity disorder, combined type 09/16/2025 5 2024 90.0 6130C-A f-C-375 Th [facility] dextroamphe tamine-amph etamine 10 mg oral tablet 1 tab(s), Oral, Daily, Daily in the afternoo n, # 90 tab(s), 0 total refill(s ), Hard Stop, Pharmacy : [facility] Oral (given by mouth) [facility] ed Attention-defi cit hyperactivity disorder, combined type 09/22/2024 4 2023 90.0 6130C-A f-C-375 Th [facility] dextroamphe tamine-amph etamine 10 mg oral tablet 1 tab(s), Oral, Daily, Daily in the afternoo n, # 60 tab(s), 0 total refill(s ), [facility], Pharmacy : [facility] Oral (given by mouth) Discont inued Attention-defi cit hyperactivity disorder, combined type 03/09/20252024 60.0 6130C-A f-C-375 Th [facility] dextroamphe tamine-amph etamine 10 mg oral tablet 1 tab(s), Oral, Daily, Daily in the afternoo n, # 90 tab(s), 0 total refill(s ), Hard Stop, Pharmacy : [facility] Oral (given by mouth) [facility] ed Attention-defi cit hyperactivity disorder, combined type 12/11/2024 5 2024 90.0 6130C-A f-C-375 Th [facility] dextroamphe tamine-amph etamine 10 mg oral tablet 1 tab(s), Oral, Daily, Daily in the afternoo n at 2 PM, # 90 tab(s), 0 total refill(s ), Maintena mae, Pharmacy : [facility] Oral (given by mouth) Ordered Attention-defi cit hyperactivity disorder, combined type 5 2024 90.0 6130C-A f-C-375 Th [facility] dextroamphe tamine-amph etamine 15 mg oral tablet 1 tab(s), Oral, BID, # 180 tab(s), 0 total refill(s ), [facility], Pharmacy : [facility] Oral (given by mouth) Discont inued Attention-defi cit hyperactivity disorder, unspecified type 09/18/2023 3 2022 180.0 6130C-A f-C-375 Th [facility] dextroamphe tamine-amph etamine 20 mg oral tablet 90 EA, 0 Refill(s ), Take 1 tablet (20 mg) by mouth daily. Take this dose at 10 am., 0 total refill(s ), Soft Stop Discont inued 07/05/20232022 6130C-A f-C-375 Th [facility] dextroamphe tamine-amph etamine 20 mg oral tablet 1 tab(s), Oral, Daily, Daily at 6 AM, # 90 tab(s), 0 total refill(s ), [facility], Pharmacy : [facility] Oral (given by mouth) Discont inued Attention-defi cit hyperactivity disorder, combined type 03/17/2024 4 2023 90.0 6130C-A f-C-375 Th [facility] dextroamphe tamine-amph etamine 20 mg oral tablet 1 tab(s), Oral, Daily, Daily at 6 AM, # 90 tab(s), 0 total refill(s ), [facility], Pharmacy : [facility] Oral (given by mouth) Discont inued Attention-defi cit hyperactivity disorder, combined type 05/29/2024 4 2023 90.0 6130C-A f-C-375 Th [facility] dextroamphe tamine-amph etamine 20 mg oral tablet 1 tab(s), Oral, Daily, Daily at 6 AM, # 90 tab(s), 0 total refill(s ), [facility], Pharmacy : [facility] Oral (given by mouth) Discont inued Attention-defi cit hyperactivity disorder, combined type 06/11/2025 5 2024 90.0 6130C-A f-C-375 Th [facility] dextroamphe tamine-amph etamine 20 mg oral tablet 1 tab(s), Oral, Daily, Daily at 6 AM, # 90 tab(s), 0 total refill(s ), [facility], Pharmacy : [facility] Oral (given by mouth) Discont inued Attention-defi cit hyperactivity disorder, combined type 09/16/2025 5 2024 90.0 6130C-A f-C-375 Th [facility] dextroamphe tamine-amph etamine 20 mg oral tablet 1 tab(s), Oral, every morning, # 90 tab(s), 0 total refill(s ), [facility], Pharmacy : [facility] Oral (given by mouth) Discont inued Attention-defi cit hyperactivity disorder, unspecified type 10/16/20232023 90.0 6130C-A f-C-375 Th [facility] dextroamphe tamine-amph etamine 20 mg oral tablet 1 tab(s), Oral, Daily, Daily at 6 AM, # 90 tab(s), 0 total refill(s ), [facility], Pharmacy : [facility] Oral (given by mouth) Complet ed Attention-defi cit hyperactivity disorder, combined type 09/22/2024 4 2023 90.0 6130C-A f-C-375 Th [facility] dextroamphe tamine-amph etamine 20 mg oral tablet See Instruct ions, 1 tab(s) Oral take at 10am daily, # 30 cap(s), 0 total refill(s ), [facility], [id number] Cancele d 01/11/20252024 30.0 6130C-A f-C-375 Th [facility] dextroamphe tamine-amph etamine 20 mg oral tablet 1 tab(s), Oral, Daily, Daily at 6 AM, # 60 tab(s), 0 total refill(s ), Jeremias [facility], Pharmacy : [facility] Oral (given by mouth) Discont inued Attention-defi cit hyperactivity disorder, combined type 03/09/2025 5 2024 60.0 6130C-A f-C-375 Th [facility] dextroamphe tamine-amph etamine 20 mg oral tablet 1 tab(s), Oral, Daily, Daily at 6 AM, # 90 tab(s), 0 total refill(s ), Sourav Stafford, Pharmacy : [facility] Oral (given by mouth) Complet ed Attention-defi cit hyperactivity disorder, combined type 12/11/2024 4 2024 90.0 6130C-A f-C-375 Th [facility]- [facility] dextroamphe tamine-amph etamine 20 mg oral tablet dextroam phetamin e-amphet amine 20 mg oral tablet Start Date: 05/18/20 Stop Date: 07/05/23 Status: Disconti nued Medicati on Dispense Status: Complete d Total Allowed Fills: 1 Fills Dispense d: 0 Discont inued 07/05/20232022 No Facilit y Access dextroamphe tamine-amph etamine 20 mg oral tablet dextroam phetamin e-amphet amine 20 mg oral tablet Start Date: 11/22/19 Stop Date: 07/05/23 Status: Disconti nued Medicati on Dispense Status: Complete d Total Allowed Fills: 1 Fills Dispense d: 0 Discont inued 07/05/20232022 No Facilit y Access dextroamphe tamine-amph etamine 20 mg oral tablet 1 tab(s), Oral, Daily, Daily at 6 AM, # 90 tab(s), 0 total refill(s ), Jeremias [facility], Pharmacy : [facility] Oral (given by mouth) Ordered Attention-defi cit hyperactivity disorder, combined type 5 2024 90.0 6130C-A f-C-375 Th [facility] dextroamphe tamine-amph etamine 30 mg oral tablet 30 EA, 0 Refill(s ), Take 1 tablet (30 mg) by mouth daily for 30 days., 0 total refill(s ), Soft Stop Discont inued 07/05/20232022 6130C-A f-C-375 Th [facility] dextroamphe tamine-amph etamine 30 mg oral tablet 1 tab(s), Oral, Daily, Daily at 10 AM, # 90 tab(s), 0 total refill(s ), [facility], Pharmacy : [facility] Oral (given by mouth) Discont inued Attention-defi cit hyperactivity disorder, combined type 05/29/2024 4 2023 90.0 6130C-A f-C-375 Th [facility] dextroamphe tamine-amph etamine 30 mg oral tablet 1 tab(s), Oral, Daily, Daily at 10 AM, # 90 tab(s), 0 total refill(s ), [facility], Pharmacy : [facility] Oral (given by mouth) Discont inued Attention-defi cit hyperactivity disorder, combined type 03/17/2024 4 2023 90.0 6130C-A f-C-375 Th [facility] dextroamphe tamine-amph etamine 30 mg oral tablet 1 tab(s), Oral, Daily, Daily at 10 AM, # 90 tab(s), 0 total refill(s ), [facility], Pharmacy : [facility] Oral (given by mouth) Discont inued Attention-defi cit hyperactivity disorder, combined type 06/11/2025 5 2024 90.0 6130C-A f-C-375 Th [facility] dextroamphe tamine-amph etamine 30 mg oral tablet 1 tab(s), Oral, Daily, Daily at 10 AM, # 90 tab(s), 0 total refill(s ), [facility], Pharmacy : [facility] Oral (given by mouth) Discont inued Attention-defi cit hyperactivity disorder, combined type 09/16/2025 5 2024 90.0 6130C-A f-C-375 Th [facility] dextroamphe tamine-amph etamine 30 mg oral tablet 1 tab(s), Oral, Daily, Daily at 10 AM, # 90 tab(s), 0 total refill(s ), Hard [facility], Pharmacy : [facility] Oral (given by mouth) Complet ed Attention-defi cit hyperactivity disorder, combined type 09/22/2024 4 2023 90.0 6130C-A f-C-375 Th [facility] dextroamphe tamine-amph etamine 30 mg oral tablet See Instruct ions, 1 tab(s) Oral take at 6am daily, # 30 cap(s), 0 total refill(s ), [facility], Pharmacy : [facility] ed 12/14/20242024 30.0 6130C-A f-C-375 Th [facility] dextroamphe tamine-amph etamine 30 mg oral tablet 1 tab(s), Oral, Daily, Daily at 10 AM, # 60 tab(s), 0 total refill(s ), [facility] Oral (given by mouth) Discont inued Attention-defi cit hyperactivity disorder, combined type 03/09/2025 5 2024 60.0 6130C-A f-C-375 Th [facility] dextroamphe tamine-amph etamine 30 mg oral tablet 1 tab(s), Oral, Daily, Daily at 10 AM, # 90 tab(s), 0 total refill(s ), [facility], Pharmacy : [facility] Oral (given by mouth) Complet ed Attention-defi cit hyperactivity disorder, combined type 12/11/2024 4 2024 90.0 6130C-A f-C-375 Th [facility] dextroamphe tamine-amph etamine 30 mg oral tablet dextroam phetamin e-amphet amine 30 mg oral tablet Start Date: 06/05/20 Stop Date: 07/05/23 Status: Disconti nued Medicati on Dispense Status: Complete d Total Allowed Fills: 1 Fills Dispense d: 0 Discont inued 07/05/20232022 No Facilit y Access dextroamphe tamine-amph etamine 30 mg oral tablet dextroam phetamin e-amphet amine 30 mg oral tablet Start Date: 08/28/19 Stop Date: 07/05/23 Status: Disconti nued Medicati on Dispense Status: Complete d Total Allowed Fills: 1 Fills Dispense d: 0 Discont inued 07/05/20232022 No Facilit y Access dextroamphe tamine-amph etamine 30 mg oral tablet 1 tab(s), Oral, Daily, Daily at 10 AM, # 90 tab(s), 0 total refill(s ), [facility], Pharmacy : [facility] Oral (given by mouth) Ordered Attention-defi cit hyperactivity disorder, combined type 5 2024 90.0 6130C-A shubham-C-375 Th [facility] Flonase Allergy Relief 50 mcg/inh nasal spray 1 spray(s) , Inhale, Daily, # 16 g, 0 total refill(s ), [facility], Pharmacy : [facility] Inhala tion (breat he in) Discont inued Chronic rhinitis 09/21/2025 4 2024 16.0 6130C-A shubham-C-375 Th MedgrpAshlee Farfan fluconazole 150 mg oral tablet 1 tab(s), Oral, As Directed , X 1 days, # 1 tab(s), 0 total refill(s ), 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, 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, 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[facility] , 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, 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 xis Oral (given by mouth) Complet ed Chronic rhinitis 09/23/2024 4 2023 1.0 6130C-A shubham-C-375 Th [facility] Gildess FE 1.5/30 oral tablet ORAL, 0 Refill(s ), 0 total refill(s ), Soft Stop Discont inued 03/17/20242023 6130C-A shubham-C-375 Th [facility] ibuprofen 800 mg oral tablet 1 tab(s), Oral, every 8 hr, PRN cramps, back pain, # 30 tab(s), 0 total refill(s ), Jeremias valles Oral (given by mouth) Ordered 2022 30.0 6130C-A shubham-C-375 Th Linda Farfan metFORMIN 500 mg oral tablet 2 Unknown, Unknown, 0 Refill(s ), 0 total refill(s ), Soft Stop Discont inued 09/21/20252024 61TonyCTamika jalloh-C-375 Th [facility]- [facility] MiraLax oral powder for reconstitut ion See Instruct ions, Take per colonosc opy prep directio ns: At 5PM or 6PM drink 8 ounces (one glassful ) of the Miralax/ liquid mixture. Repeat every 15 minutes until you have finished the 2 liter/64 oz. of Miralax/ liquid (approxi mately 2 hours)., # 255 g, 0 total refill(s ), Jeremias valles, Pharmacy : [facility] Discont inued 09/21/20252024 255.0 6130C-A -C-375 Th [facility]- [facility] norethindro ne-ethinyl estradiol with iron 1.5 mg-30 mcg oral tablet norethin drone-et hinyl estradio l with iron 1.5 mg-30 mcg oral tablet Start Date: 12/02/19 Stop Date: 07/05/23 Status: Disconti nued Medicati on Dispense Status: Complete d Total Allowed Fills: 1 Fills Dispense d: 0 Discont inued 07/05/20232022 No Facilit y Access simethicone 80 mg oral tablet, chewable 3 tab(s), Chew, Daily, Per colonosc opy prep instruct ions: At 9PM take Simethic one 80mg (3) chewable tabs by mouth after completi on of bowel prep, # 3 tab(s), 0 total refill(s ), Jeremias valles, Pharmacy : [facility] Chew Discont inued 09/21/20252024 3.0 6130C-A -C-375 Th [facility] tirzepetide tirzepet tang, 0 total refill(s ), Jeremias nce Ordered 2024 6130C-A f-C-375 Th [facility] Zofran ODT 8 mg oral tablet, disintegrat ing 1 tab(s), Oral, every 8 hr, PRN Nausea or Vomiting , Take prior to colonsoc opy prep, # 1 tab(s), 0 total refill(s ), Jeremias valles, Pharmacy : [facility] Oral (given by mouth) Discont inued 09/21/20252024 1.0 6130C-A f-C-375 Th [facility] Allergies, Adverse Reactions, Alerts Combined list of allergies from Department of Defense and Veterans Affairs facilities. It does not include entries that were removed or entered in error. Substance Category Reaction Severity Reaction type Status Date Reported Comments Source LISINOPRIL Drug allergy (disorder) active 10/18/2023 [employer] [facility] ([facility]) lisinopril Drug allergy facial swell Mild Active 6130C-Af- C-375Th [facility] jeannette Immunizations Combined list of available immunizations from the Department of Defense and Veterans Affairs facilities. 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 Performance Manager Status Comments Source zz- COVID Vaccine Pfizer 30 mcg/0.3 mL 2020 DL Cardenas Shoul owen, left (delt oid) [id number] PFIZER complet ed zz- COVID Vaccine Pfizer 30 mcg/0.3 mL 02/13/21 Recorded No Facilit y Access zz- COVID Vaccine Pfizer 30 mcg/0.3 mL 2020 MIHIR Shoul owen, left (delt oid) [id number] PFIZER complet ed zz- COVID Vaccine Pfizer 30 mcg/0.3 mL 01/24/21 Recorded No Facilit y Access influenza, injectable, quadrivalent- pf 2017 zzLef t Arm [id number] [employer]Smith[employer] complet ed influenza , injectabl e, quadrival ent-pf 09/23/18 Given Ambulat ory Pharmac y Influenza, injectable, quadrivalent, preservative free 1 2017 EDWIN ALLEN [id number] [facility] ([facility] complet ed Influenza , injectabl e, quadrival ent, preservat peri free DoD influenza, injectable, quadrivalent- pf 2016 zzLef t Arm [id number] 150 Gl[employer]oSmithKli ne complet ed influenza , injectabl e, quadrival ent-pf 07/29/17 Given Ambulat ory Pharmac y Influenza, injectable, quadrivalent, preservative free 1 2016 SHERRON VALENZUELA [id number] 150 [facility] complet ed Influenza , injectabl e, quadrival ent, preservat peri free DoD tetanus, diphtheria, acellular pertu is 2016 zzLef t Arm [id number] 115 [employer]oSmithK[employer] ne complet ed tetanus, diphtheri a, acellular pertussis 06/07/17 Given Ambulat ory Pharmac y tetanus toxoid, reduced diphtheria toxoid, and acellular pertu is vaccine, adsorbed 1 2016 RUDDY LEON [id number] 115 [facility] ([facility] complet ed tetanus toxoid, reduced diphtheri a toxoid, and acellular pertussis vaccine, adsorbed DoD Results Combined list of recent chemistry, hematology and other laboratory results from Department of Defense and Veterans Affairs, ranging from 15 months to all on record, depending upon the facility. Order Name Results Value Reference Range Date Interpretation Specimen Comments Source Molecular Infectiou s Disease SARS-CoV-2 PCR Negative 9 (10/15/21 10:43 AM) 10/15 N Interpretiv e Data: SARS-CoV-2 detection results obtained using [employer] for molecular based testing. The laboratory is certified under Clinical Laboratory Improvement Program (CLIP) and [employer] s (CAP) as qualified to perform high complexity clinical laboratory testing. This is a diagnostic test indicated for testing individuals with signs and symptoms of SARS-CoV-2 (COVID-19). Results should be interpreted within the appropriate clinical setting of active or suspected infection. This test is not indicated, nor suitable, for screening asymptomati c individuals . This test has not been FDA cleared or approved. This test has been authorized by FDA under an EUA for use by authorized laboratorie s. This test has been authorized only for the detection of nucleic acid from SARS-CoV-2, not for any other viruses or pathogens. This test is only authorized for the duration of the declaration that circumstanc es exist justifying the authorizati on of emergency use of in vitro diagnostic tests for detection and/or diagnosis of COVID-19 under Section 564 (b) (1) of the Act, 21 U.S.C. Fact sheet for Healthcare Providers and Patients are available on the FDA website: https://www .fda.gov/Me afiaSerafin s/Safety/Em ergencySitu ations/ucm1 [address].htm [address] [place] [address] Molecular Infectiou s Disease Reason for Test? Screenin g (10/15/21 10:43 AM) 10/[address] [place] [address] Urinalysi s WBC, Wet Prep None ( 8:23 AM) 09/[address] [place] [address] Urinalysi s Yeast, Wet Prep Fungal Not Pres ( 8:23 AM) 09/[address] [place] [address] Urinalysi s Trichomona s, Wet Prep Not Present ( 1 8:23 AM) 09/[address] [place] [address] Urinalysi s Clue Cells, Wet Prep Not Present ( 1 8:23 AM) 09/[address] [place] [address] Infectiou s Disease Chlamydia Scrn Negative 2 ( 1 8:23 AM) 09/04 N Interpretiv e Data: THESE ASSAYS ARE NOT FDA-CLEARED OR VALIDATED BY THE MANUFACTURE R ([employer]) IN LESS THAN 14 YEAR AGE GROUP [address] [place] [address] Infectiou s Disease GC Scrn Negative 5 ( 1 8:23 AM) 09/04 N Interpretiv e Data: The Chlamydia trachomatis and Neisseria gonorrhoeae assays using the Aptima Combo 2 assay kit on [employer] Biomedical System by [employer] are not FDA-approve d for conjunctiva l swab as specimen type. This source is validated and its performance characteris tics have been validated by [facility] IAW CLIA guidelines. [facility] is certified under the CLIA 1987 as qualified to perform high complexity clinical laboratory testing. THESE ASSAYS ARE NOT FDA-CLEARED OR VALIDATED BY THE MANUFACTURE R ([facility]) IN LESS THAN 14 YEAR AGE GROUP [address] [place] [address] Chemistry Beta hCG, Urine Qual Negative 8 ( 7:13 AM) 09/04 N Interpretiv e Data: The first morning urine specimen usually contains the highest concentrati on of HCG and is therefore the best sample. Urine specimens from healthy men and healthy non-pregnan t women should not contain detectable levels of HCG. A Positive result means that HCG levels have been detected that are >25 mIU/ml. A Negative result means that HCG levels were not detected and that levels are below <25 mIU/ml. [address] [place] [address] Urinalysi s UA Waxy Cast 0 /HPF 09/[address] [place] [address] Urinalysi s UA Granular Cast 0 /HPF 09/[address] [place] [address] Urinalysi s UA Hyaline Cast 0 /HPF 09/[address] [place] [address] Urinalysi s UA Sperm 0 /HPF 09/[address] [place] [address] Urinalysi s UA Trichomona s 0 /HPF 09/[address] [place] [address] Urinalysi s UA Ketones Negative ( 7:13 AM) 09/[address] [place] [address] Urinalysi s UA Blood Trace *ABN* ( 7:13 AM) 09/[address] [place] [address] Urinalysi s UA Clarity Clear 09/[address] [place] [address] Urinalysi s UA Leuk Esterase Negative ( 7:13 AM) 09/[address] [place] [address] Urinalysi s UA Nitrite Negative ( 7:13 AM) 09/[address] [place] [address] Urinalysi s UA Fatty Cast 0 /HPF 09/[address] [place] [address] Urinalysi s UA Color Light-Ye llow 09/[address] [place] [address] Urinalysi s UA RBC Cast 0 /HPF 09/[address] [place] [address] Urinalysi s UA Spec [place] 1.027 1.005 - 1.030 09/[address] [place] [address] Urinalysi s UA WBC Cast 0 /HPF 09/[address] [place] [address] Urinalysi s UA Bacteria Rare /HPF 09/[address] [place] [address] Urinalysi s UA WBC 1 /HPF 0 - 5 09/[address] [place] [address] Urinalysi s UA RBC <1 /HPF 0 - 2 09/[address] [place] [address] Urinalysi s UA Appear Clear 09/[address] [place] [address] Urinalysi s UA Trip Phos Crystal 0 /HPF 09/[address] [place] [address] Urinalysi s UA Leucine Crystal 0 /HPF 09/[address] [place] [address] Urinalysi s UA Cystine Crystal 0 /HPF 09/[address] [place] [address] Urinalysi s UA Ca Ox Crystal 0 /HPF 09/[address] [place] [address] Urinalysi s UA Amorph Crystal 0 /HPF 09/[address] [place] [address] Urinalysi s UA Transition al Epi 0 /HPF 09/[address] [place] [address] Urinalysi s UA Tyrosine Crystal 0 /HPF 09/[address] [place] [address] Urinalysi s UA Renal Epi 0 /HPF 09/[address] [place] [address] Urinalysi s UA Epi Non-Squam 0 /HPF 09/[address] [place] [address] Urinalysi s UA Epi Squam Many /HPF 09/[address] [place] [address] Urinalysi s UA Broad Cast 0 /HPF 09/[address] [place] [address] Urinalysi s UA Mucous Few /LPF 09/[address] [place] [address] Urinalysi s UA Uric Acid Crystal 0 /HPF 09/[address] [place] [address] Urinalysi s UA Cellular Cast 0 /HPF 09/[address] [place] [address] Urinalysi s UA Ca Carb Crystal 0 /HPF 09/[address] [place] [address] Urinalysi s UA Epi Cast 0 /HPF 09/[address] [place] [address] Urinalysi s UA Dysmorphic RBC 0 /HPF 09/[address] [place] [address] Urinalysi s UA RBC Clumps 0 /HPF 09/[address] [place] [address] Urinalysi s UA Ca Phos Crystal 0 /HPF 09/[address] [place] [address] Urinalysi s UA Yeast Budding 0 /HPF 09/[address] [place] [address] Urinalysi s UA Yeast Hyphae 0 /HPF 09/[address] [place] [address] Urinalysi s UA Oval Fat Bodies 0 /HPF 09/[address] [place] [address] Urinalysi s UA WBC Clumps 0 /HPF 09/[address] [place] [address] Urinalysi s UA Protein Negative ( 7:13 AM) 09/[address] [place] [address] Urinalysi s UA Glucose Normal ( 7:13 AM) 09/[address] [place] [address] Urinalysi s UA pH 6.5 5.0 - 7.5 09/[address] [place] [address] Urinalysi s UA Urobilinog en Normal ( 7:13 AM) 09/[address] [place] [address] Urinalysi s UA Bili Negative ( 7:13 AM) 09/[address] [place] [address] Molecular Infectiou s Disease SARS-CoV-2 PCR Negative 10 ( 1 1:11 PM) 07/31 N Interpretiv e Data: SARS-CoV-2 detection results obtained using [employer] for molecular based testing. The laboratory is certified under Clinical Laboratory Improvement Program (CLIP) and [employer] s (CAP) as qualified to perform high complexity clinical laboratory testing. This is a diagnostic test indicated for testing individuals with signs and symptoms of SARS-CoV-2 (COVID-19). Results should be interpreted within the appropriate clinical setting of active or suspected infection. This test is not indicated, nor suitable, for screening asymptomati c individuals . This test has not been FDA cleared or approved. This test has been authorized by FDA under an EUA for use by authorized laboratorie s. This test has been authorized only for the detection of nucleic acid from SARS-CoV-2, not for any other viruses or pathogens. This test is only authorized for the duration of the declaration that circumstanc es exist justifying the authorizati on of emergency use of in vitro diagnostic tests for detection and/or diagnosis of COVID-19 under Section 564 (b) (1) of the Act, 21 U.S.C. Fact sheet for Healthcare Providers and Patients are available on the FDA website: https://www .fda.gov/Me Meierice s/Safety/Em ergencySitu ations/ucm1 [address].htm [address] [place] [address] Molecular Infectiou s Disease Reason for Test? Screenin g ( 1 1:11 PM) 07/[address] [place] [address] Chemistry Troponin-T <0.010 ng/mL 0.010 - 0.029 12/13 N Interpretiv e Data: <0.010 ng/mL = Negative for myocardial damage. 0.011 - 0.029 ng/mL = Non-Diagnos tic, suggest clinical correlation . 0.030 - 0.099 ng/mL = May indicate myocardial damage. Suggest additional Troponin T testing over the next 8-16 hours as clinically indicated. Note: Troponin T results of 0.030 - 0.099, if associated with TN, should rise if re-assayed over the next 8-16 hours and may rise in as little as 2-4 hours. If results remain in this range, consider other causes such as myocarditis , pulmonary embolism, septic shock, cardiotoxic drugs or end stage renal disease. >/=0.100 ng/mL = Positive for myocardial damage. Use of biotin supplements greater than 10 mg/day has been shown to affect the accuracy of this test. Providers should encourage patients to cease all biotin supplements for a minimum of 72 hours before phlebotomy to avoid interferenc e. [address] [place] [address] Hematolog y MPV 10.6 fL 6.4 - 10.3 12/[address] [place] [address] Hematolog y IPF % 1 12/[address] Hematolog y MCHC 33.1 g/dL 32.0 - 36.0 12/[address] Hematolog y Platelets 363 10^3/uL 150 - [id number] 12/[address] Hematolog y RDW CV 12.5 % 11.5 - 14.0 12/[address] Hematolog y MCV 93.3 fL 82.0 - 99.0 12/[address] Hematolog y MCH 30.9 pg 28.0 - 33.0 12/[address] Hematolog y RBC 4.5 10^6/uL 3.9 - 5.0106 12/[address] Hematolog y Hemoglobin 13.8 g/dL 12.0 - 15.3 12/[address] Hematolog y Hematocrit 41.7 % 36.0 - 46.0 12/[address] Hematolog y WBC 9.1 10^3/uL 4.0 - 10.5103 12/[address] Chemistry Calcium 9.1 mg/dL 8.9 - 10.4 12/[address] Chemistry AST 22 U/L 12 - 39 12/[address] [place] [address] Chemistry Alk Phos 75 U/L 40 - 129 12/13 N Interpretiv e Data: Increased intestinal alkaline phosphatase can be seen in blood group O and B secretors and after fatty meals. [address] [place] [address] Chemistry Albumin 4.4 g/dL 3.5 - 4.8 12/[address] [place] [address] Chemistry A/G Ratio 1.6 1.5 - 2.0 12/[address] [place] [address] Chemistry Globulin 2.7 g/dL 2.0 - 3.5 12/[address] [place] [address] Chemistry ALT 26 U/L 17 - 63 12/[address] [place] [address] Chemistry CO2 26 mmol/L 22 - 32 12/[address] [place] [address] Chemistry Chloride 103 mmol/L 98 - 107 12/[address] [place] [address] Chemistry Creatinine Level 0.8 mg/dL 0.4 - 1.0 12/[address] [place] [address] Chemistry Glucose Lvl 99 mg/dL 75 - 99 12/13 N Interpretiv e Data: Fasting=75- 99 mg/dL Impaired Fasting Glucose= 100 to 125 mg/dL Provisional Diagnosis of Diabetes= equal or greater than 126 mg/dL Non-Fasting = 75-139 mg/dL Impaired Non-Fasting Glucose= 140-199 mg/dL Provisional Diagnosis of Diabetes= equal or greater than 200 mg/dL [address] [place] [address] Chemistry Bilirubin Total <0.15 mg/dL 0.15 - 1.00 12/[address] [place] [address] Chemistry Sodium 140 mmol/L 136 - 145 12/[address] [place] [address] Chemistry BUN 16 mg/dL 6 - 20 12/[address] [place] [address] Chemistry Protein Total 7.1 g/dL 6.6 - 8.7 12/[address] [place] [address] Chemistry AGAP 11 mmol/L 6 - 16 12/[address] [place] [address] Chemistry Potassium Lvl 4.5 mmol/L 3.5 - 5.1 12/13 N Result Comment: RESULT MAY BE INACCURATE DUE TO HEMOLYSIS. PLEASE RESUBMIT IF CLINICALLY INDICATED. [address] [place] [address] Chemistry Osmo Calc 291 12/[address] [place] [address] Chemistry BUN/Creat Ratio 20.0 10.0 - 25.0 12/[address] [place] [address] Chemistry Bilirubin Direct <0.2 mg/dL 12/[address] [place] [address] Hematolog y nRBC Absolute 0.00 12/[address] [place] [address] Hematolog y nRBC % Auto 0.0 % 12/[address] [place] [address] Hematolog y Imm. Granulocyt e Absolute 0.02 10^3/uL 0.00 - 0.14978 12/[address] [place] [address] Hematolog y Basophil % Auto 0.2 % 0.0 - 4.0 12/[address] [place] [address] Hematolog y Eos Absolute 0.17 10^3/uL 0.00 - 0.70867 12/[address] [place] [address] Hematolog y Eosinophil % Auto 1.9 % 0.0 - 6.0 12/[address] [place] [address] Hematolog y Wirt Absolute 0.41 10^3/uL 0.20 - 0.62015 12/[address] [place] [address] Hematolog y Imm. Granulocyt e % 0.2 % 12/[address] [place] [address] Hematolog y Baso Absolute 0.02 10^3/uL 0.00 - 0.44622 12/[address] [place] [address] Hematolog y Lymph Absolute 3.27 10^3/uL 1.00 - 4.69135 12/[address] [place] [address] Hematolog y Lymphocyte % Auto 36.1 % 15.0 - 45.0 12/[address] [place] [address] Hematolog y Neutro Absolute 5.17 10^3/uL 2.00 - 7.21260 12/[address] [place] [address] Hematolog y Neutrophil % Auto 57.1 % 40.0 - 80.0 12/[address] [place] [address] Hematolog y Monocyte % Auto 4.5 % 4.0 - 11.0 12/[address] [place] [address] Chemistry eGFR Non-AA 91 mL/min/1 .73_m2 12/13 Interpretiv e Data: INTERPRETAT ION: >= 90 = Normal eGFR in most healthy patients. 60-89 = Mildly decreased eGFR, not independent ly diagnostic of renal disease in the absence of kidney damage (e.g. proteinuria ). 30-59 = Moderately decreased eGFR. 15-29 = Severely decreased eGFR. <15 = Kidney failure. This result is an estimated glomerular filtration rate (eGFR) only, and has been derived from the Chronic Kidney Disease Epidemiolog y Collaborati on (CKD-EPI) equation. The full units are mL/min/1.73 m2. [facility] cannot automatical ly adjust the calculation for (AA) patients, therefore two eGFR's are reported - GFR-AA and GFR-ANNA MARIE. The calculation is not accurate for pediatric patients; therefore no eGFR will be reported on patients <18 years of age. The calculation automatical ly takes patient sex into account, but as with all estimations , results may not be valid for certain sub-groups including: severely hypoalbumin emic patients, patients not in steady state (including acute renal failure), dialysis patients, patients with extremes of muscle mass (including frail elderly, critically ill, obese, and cancer patients, as well those who have had an amputation or who participate in strenuous exercise) and those with atypical diets. Some pharmacolog ical therapeutic s are dosed based on older versions of the eGFR. Where deemed necessary, refer to Pharmacy for assistance or more information . [address] [place] [address] Chemistry eGFR AA 105 mL/min/1 .73_m2 12/[address] [place] [address] Vital Signs Combined list of inpatient and outpatient Vital Signs from Department of Defense and Veterans Affairs, ranging from 12 months to all on record, depending upon the facility. Vital Sign Value Date Comments Source Peripheral Pulse Rate 98 bpm 09/16/2025 14:52:00 9806M-Xa[facility] Mean Arterial Pressure, Cuff (Calc) 91 mm[Hg] 09/16/2025 14:52:00 6310Y-Dt-L[facility] Systolic Blood Pressure 119 mm[Hg] 09/16/20 25 14:52:00 2744N-Mp-N[facility] Diastolic Blood Pressure 77 mm[Hg] 025 14:52:00 9644J-Lf-J[facility] Blood Pressure Manual Automatic 09/16/2025 14:52:00 2642I-Jz-Y[facility] BP Site Left arm 09/16/2025 14:52:00 3297W-Nm-F[facility] Respiratory Rate 18 br/min 09/16/2025 14:52:00 0030D-Pl-F[facility] Peripheral Pulse Rate 62 bpm 07/05/2023 15:42:00 5598Z-Vf-F[facility] Mean Arterial Pressure, Cuff (Calc) 85 mm[Hg] 07/05/2023 15:42:00 1038W-Po-Y[facility] Blood Pressure Manual Automatic 07/05/2023 15:42:00 1290G-Kf-M[facility] Respiratory Rate 16 br/min 07/05/2023 15:42:00 6888D-Pp-C[facility] Systolic Blood Pressure 112 mm[Hg] 07/05/20 23 15:42:00 8627S-Oz-Z[facility] Diastolic Blood Pressure 72 mm[Hg] 023 15:42:00 1577T-Eg-J-[facility] BP Site Left arm 07/05/2023 15:42:00 3693K-Ey-P[facility] Blood Pressure Manual Automatic 09/22/2024 16:35:00 3231U-Gz-V[facility] Mean Arterial Pressure, Cuff (Calc) 104 mm[Hg] 09/22/2024 16:35:00 5422G-Oc-C[facility] Peripheral Pulse Rate 99 bpm 09/22/2024 16:35:00 0507C-Nk-L-[facility] BP Site Left arm 09/22/2024 16:35:00 0470Y-Mw-U[facility] Systolic Blood Pressure 137 mm[Hg] 09/22/20 24 16:35:00 8719M-Am-O[facility] Diastolic Blood Pressure 87 mm[Hg] 024 16:35:00 7619C-Dd-Z-[facility] BP Site Left arm 09/18/2023 16:06:00 9789U-Hw-Z[facility] Temperature Oral 36.7 Sherrell 09/18/2023 16:06:00 8736L-Wo-X-[facility] Respiratory Rate 16 br/min 09/18/2023 16:06:00 8122S-Kg-T-[facility] Blood Pressure Manual Automatic 09/18/2023 16:06:00 7775C-Po-N-[facility] Mean Arterial Pressure, Cuff (Calc) 92 mm[Hg] 09/18/2023 16:06:00 3789L-Ce-G-[facility] Systolic Blood Pressure 117 mm[Hg] 09/18/20 23 16:06:00 2309B-Ci-E-[facility] Diastolic Blood Pressure 80 mm[Hg] 023 16:06:00 0187U-Qp-M-[facility] Peripheral Pulse Rate 99 bpm 09/18/2023 16:06:00 5759Y-Zw-E-[facility] Peripheral Pulse Rate 70 bpm 06/11/2025 19:00:00 0879E-Rk-X-[facility] Mean Arterial Pressure, Cuff (Calc) 87 mm[Hg] 06/11/2025 19:00:00 8826U-Ov-I-[facility] Respiratory Rate 18 br/min 06/11/2025 19:00:00 2515N-Rn-Z-[facility] Blood Pressure Manual Automatic 06/11/2025 19:00:00 6896M-Nv-V-[facility] BP Site Left arm 06/11/2025 19:00:00 3193X-Nj-U-[facility] Systolic Blood Pressure 105 mm[Hg] 06/11/20 25 19:00:00 6617E-Uu-I[facility] Diastolic Blood Pressure 78 mm[Hg] 025 19:00:00 4000Q-Up-X-[facility] Temperature Oral 36.4 Sherrell [facility] 135 mm[Hg] 09/04/20 21 14:52:[address] [place] [address] Diastolic Blood Pressure 85 mm[Hg] 021 14:52:[address] [place] [address] Peripheral Pulse Rate 95 bpm 09/04/2021 14:52:[address] [place] [address] Respiratory Rate 16 br/min 09/04/2021 [facility] Left [facility] 03/17/2024 19:14:00 3471M-Bi-N-[facility] Systolic Blood Pressure 131 mm[Hg] 03/17/20 24 19:14:00 1995J-Vp-R-[facility] Diastolic Blood Pressure 83 mm[Hg] 024 19:14:00 2227O-Ti-T-[facility] Mean Arterial Pressure, Cuff (Calc) 99 mm[Hg] 03/17/2024 19:14:00 3445T-Be-R-[facility] Peripheral Pulse Rate 90 bpm 03/17/2024 19:14:00 7151E-Tq-U-[facility] Temperature Oral 36.8 Sherrell 12/12/2020 [facility] 136 mm[Hg] 12/13/19 21 [facility] Di[facility] Blood Pressure 75 mm[Hg] 021 [facility] Peripheral Pulse Rate 80 bpm 12/12/2020 23:13:00 0029A-[facility] Respiratory Rate 16 br/min 12/12/2020 23:13:00 002-[facility] Encounters Combined list of: 1) Encounters from Department of Veterans Affairs facilities going backup to the last 18 months, not all VA inpatient encounters are included; 2) Encounters from the Department of Defense facilities going backup to 280 months. Location Location Details Encounter Type Encounter Number Reason For Visit Attending Provider ADM Date DC Date Status Disposition Source [facility]) OUTPATIENT [id number] [facility] RECORD ASSESSM ENT AND TRANSCR AARON ISABEL 10/17 Released w/o Limitations [facility]( [facility]) [facility]( [facility]) OUTPATIENT [id number] Initial Appt DIONTE GONZALEZ 05/27 Released w/o Limitations [facility]( [facility]) [facility]( White) OUTPATIENT [id number] Notes Entered by: ESTRELLITA WADDELL 28 May 2017 0926 ------- ------- ------- ------- -- SÁNCHEZ HERRERA 05/28 Released w/o Limitations [facility]( [facility]) [facility] OUTPATIENT [id number] transfe r in NATHAN [id number] [facility]/06 Released w/o Limitations [facility]( [facility] OUTPATIENT [id number] Notes Entered by: ELIA LEON 07 Jun 2017 1104 ------- ------- ------- ------- -- RUDDY Oneal 06/07 Released w/o Limitations [facility]( [facility]) [facility] [id number] JEF Acuna 06/18 Released w/o Limitations [facility]( [facility]Well ess) [facility] OUTPATIENT [id number] NOB Transfe r in at 28weeks ZACHARIAH BASHIR 06/21 Released w/o Limitations [facility]( [facility]) [facility] OUTPATIENT [id number] jann NATHAN [id number] ZACHARIAH BASHIR 07/22 Released w/o Limitations [facility]( [facility]) [facility]) TELE CONSULT [id number] Notes Entered by: Yoly BASHIR 23 Jul 2017 1614 ------- ------- ------- ------- -- ICP ZACHARIAH BAHSIR 07/23 [facility]( [facility]) [facility]) OUTPATIENT [id number] CHOLEST ASIS,AM A;OB:FRANK WEBERWKL Y APT;23N OV17:35 +1 ELLE BELL 07/26 Released w/o Limitations [facility]( [facility]na l Medicin [facility]) [facility]) OUTPATIENT [id number] CHOLEST ASIS;AM A;OB:FRANK MORA;BI- WKLY APT;23N OV17:35 +4 ELLE BELL 07/29 Released w/o Limitations [facility]( [facility]) [facility] OUTPATIENT [id number] JANN NATHAN [id number] dx w cholest asis per MARK RAMOS 07/29 Released w/o Limitations [facility]( [facility]) [facility]) OUTPATIENT [id number] Notes Entered by: Dion VALENZUELA 29 Jul 2017 1156 ------- ------- ------- ------- -- Immuniz SHERRON Vega 07/29 Released w/o Limitations [facility]( [facility]) [facility]) OUTPATIENT [id number] CHOLEST ASIS;AM A;OB:FRANK MORA;BI- WKLY APT; OV17:36 +1 ELLE BELL 08/02 Released w/o Limitations [facility]( [facility]) [facility]) OUTPATIENT [id number] CHOLEST ASIS;AM A;BI-WK LY;OB:An KHANNA;:3 6+4 ELLE BELL 08/05 Released w/o Limitations [facility]( [facility]) [facility] DIRECT TO [facility] MTF FROM OTHER THAN ER OR [facility] [id number] DENNIS KATHY MARGARETH 08/08 DISCHARGED HOME [facility] OUTPATIENT [id number] PP [id number] no control needed NILSA DANIELS 09/24 Released w/o Limitations [facility]( [facility]) [facility]( [facility]) OUTPATIENT [id number] well woman/f .u SAVANNAH BATRES 10/18 Released w/o Limitations [facility]( [facility]) [facility]( [facility]) TELE CONSULT [id number] Notes Entered by: Spike GREEN 05 Nov 2017 1528 ------- ------- ------- ------- -- CALL BACK NIRAJ ALLEN 11/05 Referred for Appointment [facility]( [facility]) [facility] OUTPATIENT [id number] med change does not like Denice HASSANCLIVE SAVANNAH GONZALEZCY 11/14 Released w/o Limitations [facility]( [facility]) [facility] OUTPATIENT [id number] med refill FAYE NUÑEZ 01/07 Released w/o Limitations [facility]( [facility] OUTPATIENT [id number] well woman (pap) NADINE PANTOJA 02/21 Released w/o Limitations [facility]( [facility]) [facility] TELE CONSULT [id number] Notes Entered by: Ever GRANADOS 04 Apr 2018 1100 ------- ------- ------- ------- -- Medicat ion Refill/ NIRAJ Guerrero 04/04 Referred for Appointment [facility]( [facility]) [facility] TELE CONSULT [id number] Notes Entered by: KARIME PETE 09 Apr 2018 1029 ------- ------- ------- ------- -- Lab results NADINE PANTOJA 04/09 [facility]( [facility] OUTPATIENT [id number] med refill/ adderra ll FAYE NUÑEZ 04/28 Released w/o Limitations [facility]( [facility] [facility] TELE CONSULT [id number] Notes Entered by: FAYE WEAVER 29 Apr 2018 1359 ------- ------- ------- ------- -- Follow- up appoint NIRAJ Doll 04/29 Referred for Appointment [facility]( [facility] TELE CONSULT [id number] Notes Entered by: ROMEO SWAIN 09 May 2018 1130 ------- ------- ------- ------- -- Call Back NIRAJ ALLEN 05/09 Referred for Appointment [facility]( [facility] TELE CONSULT [id number] Notes Entered by: BRANDY ALLEN 12 May 2018 1321 ------- ------- ------- ------- -- Medicat ion NIRAJ ALLEN 05/12 Referred for Appointment [facility]( [facility]) [facility] OUTPATIENT [id number] well women/p NADINE Minor 05/27 Released w/o Limitations [facility]( [facility]) [facility] TELE CONSULT [id number] Notes Entered by: JAGUAR HELMS 16 Sep 2018 1335 ------- ------- ------- ------- -- Informa tiJAGUAR Sommer 09/16 Referred for Appointment [facility]( [facility]) [facility] OUTPATIENT [id number] 9 f/u with medicat ion LOWELL RIOS 09/17 Released w/o Limitations [facility]( [facility]) [facility] OUTPATIENT [id number] Blood pressur e follow- up LOWELL RIOS 09/22 Released w/o Limitations [facility]( [facility]) [facility] OUTPATIENT [id number] Notes Entered by: EDWIN ALLEN 23 Sep 201848 ------- ------- ------- ------- -- JOSE Zacarias 09/23 Released w/o Limitations [facility]( Immuniz ations- Core Facilit y) [facility]( Blue) OUTPATIENT [id number] oversea s LOWELL Carrion 12/29 Released w/o Limitations [facility]( Blue) [facility] OUTPATIENT [id number] 2 refill/ bp check LOWELL RIOS 02/24 Released w/o Limitations [facility]( Blue) [facility]( Blue) TELE CONSULT [id number] Notes Entered by: ESTRELLITA WADDELL 25 Feb [id number] ------- ------- ------- ------- -- RELAY HEALTH MESSAGE /MED QUESTJADEN HICKS 02/25 Referred for Appointment [facility]( Blue) [facility]) OUTPATIENT [id number] MED REFILL KEL CASTILLO 05/27 Released w/o Limitations [facility]( [facility]) 6[address]C-Af- [address] Medgr[facility]-Sc jeannette Between Visit [id number] 09/14 Discharge Disposition: Home or Self Care 6130C-A f-C-[address] [facility]- [place] 6130C-Af- C-[address] Med[facility] je[facility] [id number] Attenti on-defi cit hyperac tivity jarocho rincon type NAUN VALDERRAMA 09/16 Discharge Disposition: Home or Self Care 6130C-A f-C-[address] [facility]- [place] 6130C-Af- C-375Th Medgrp-Sc jeannette Between Visit [id number] 09/20 Discharge Disposition: Home or Self Care 6130C-A f-C-[address] Th Med[facility]- [place] 6130C-Af- C-375Th Medgrp-Sc jeannette Between Visit [id number] 09/21 Discharge Disposition: Home or Self Care 6130C-A f-C-[address] Th Medgr[facility]- [place] 0055C-375 th MEDGRP-Sc jeannette Care Not Rendered [id number] ESTEBAN AWAD 09/24 Discharge Disposition: ADMIN [address]55C-[address]- [place] Procedures Combined list of: 1) Procedures from Department of Veterans Affairs facilities going back up to thelast 18 months, not all VA non-surgical procedures are included; 2) All procedures from the Department of Defense facilities. Procedure Procedure Type Code Date Perfomer Comments Sourc e No data available for this section [facility] URINALYSIS, BY DIP STICK OR TABLET REAGENT FOR BILIRUBIN, GLUCOSE, HEMOGLOBIN, KETONES, LEUKOCYTES, NITRITE, PH, PROTEIN, SPEC GRAVITY, UROBILINOGEN, ANY NUMBER OF CONSTITUENTS; W/O MICRO, NON-AUTO 019 DoD IMMUNIZATION ADMINISTRATION (INCLUDES PERCUTANEOUS, INTRADERMAL, SUBCUTANEOUS, OR INTRAMUSCULAR INJECTIONS); 1 VACCINE (SINGLE OR COMBINATION VACCINE/TOXOID) 018 DoD CARE VISIT () DoD DRAINAGE OF AMNIOTIC FLUID, THERAPEUTIC FROM PRODUCTS OF CONCEPTION, VIA NATURAL OR ARTIFICIAL OPENING DoD DELIVERY OF PRODUCTS OF CONCEPTION, EXTERNAL APPROACH DoD INTRODUCTION OF OTHER HORMONE INTO PERIPHERAL VEIN, PERCUTANEOUS APPROACH DoD MONITORING OF PRODUCTS OF CONCEPTION, CARDIAC RATE, EXTERNAL APPROACH DoD POSTOPERATIVE FOLLOW-UP VISIT, NORMALLY INCLUDED IN THE SURGICAL PACKAGE, INDICATE THAT EVALUATION & MANAGEMENT SERVICE WAS PERFORMED DURING A POSTOPERATIVE PERIOD REASON RELATED ORIGINAL PROCEDURE DoD POSTOPERATIVE FOLLOW-UP VISIT, NORMALLY INCLUDED IN THE SURGICAL PACKAGE, INDICATE THAT EVALUATION & MANAGEMENT SERVICE WAS PERFORMED DURING A POSTOPERATIVE PERIOD REASON RELATED ORIGINAL PROCEDURE DoD VAGINAL DELIVERY ONLY (WITH OR WITHOUT EPISIOTOMY AND/OR FORCEPS); DoD ULTRASOUND, UTERUS, REAL TIME WITH IMAGE DOCUMENTATION, LIMITED (EG, HEART BEAT, PLACENTAL LOCATION, POSITION AND/OR QUALITATIVE AMNIOTIC FLUID VOLUME), 1 OR MORE FETUSES DoD SUBSEQ CARE VISIT () [EXCLS:PATIENTS WHO ARE SEEN FOR A CONDITION UNREL TO /PRENATA L CARE (EG,AN UP RESPIR INFECT;PATIENTS SEEN FOR CONSULTATION ONLY,NOT FOR CONT CARE)] [facility] THERAPEUTIC, PROPHYLACTIC, OR DIAGNOSTIC INJECTION (SPECIFY SUBSTANCE OR DRUG); SUBCUTANEOUS OR INTRAMUSCULAR [facility] SUBSEQ CARE VISIT () [EXCLS:PATIENTS WHO ARE SEEN FOR A CONDITION UNREL TO /PRENATA L CARE (EG,AN UP RESPIR INFECT;PATIENTS SEEN FOR CONSULTATION ONLY,NOT FOR CONT CARE)] [facility] SUBSEQ CARE VISIT () [EXCLS:PATIENTS WHO ARE SEEN FOR A CONDITION UNREL TO /PRENATA L CARE (EG,AN UP RESPIR INFECT;PATIENTS SEEN FOR CONSULTATION ONLY,NOT FOR CONT CARE)] [facility] SUBSEQ CARE VISIT () [EXCLS:PATIENTS WHO ARE SEEN FOR A CONDITION UNREL TO /PRENATA L CARE (EG,AN UP RESPIR INFECT;PATIENTS SEEN FOR CONSULTATION ONLY,NOT FOR CONT CARE)] [facility] INITIAL CARE VISIT (REPORT AT 1ST ENCOUN W HEALTH PUBLIC IMPROVEMENT INSPECTOR PROVIDING OBSTETRIC CARE. REPORT ALSO DATE OF VISIT &,IN A SEPARATE FIELD,THE DATE OF THE LAST MENSTRUAL PERIOD) [facility] CHILDBIRTH PREPARATION/LAMAZ E CLASSES, NON-PHYSICIAN PROVIDER, PER SESSION [facility] IMMUNIZATION ADMINISTRATION (INCLUDES PERCUTANEOUS, INTRADERMAL, SUBCUTANEOUS, OR INTRAMUSCULAR INJECTIONS); 1 VACCINE (SINGLE OR COMBINATION VACCINE/TOXOID) [facility] PATIENT EDUCATION, NOT OTHERWISE CLASSIFIED, NON-PHYSICIAN PROVIDER, INDIVIDUAL, PER SESSION [facility] Influenza Split Virus Vaccine IM Preserv Free 0.5mL Dosage Quadrivalent Influenza Split Virus Vaccine IM Preserv Free 0.5mL Dosage Quadrivalent 99332 EDWIN ALLEN Influenza, Inj., quad., preservative free; Series #: 1; .5 mL; IM; Left Arm; Mfg: Samares; Lot: [id number]. [facility] Immunization Administration By Injection, One Vaccine Immunization Administration By Injection, One Vaccine 64734 EDWIN ALLEN [facility] Obstetrical Services Care Visit Obstetrical Services Care Visit 0503F 01/16/2 NILSA PERKINS [facility] Ultrasound Obstetric Limited Evaluation Ultrasound Obstetric Limited Evaluation 14929 ELLE BELL OB Services Antepartum Care Only Subsequent Single Visit OB Services Antepartum Care Only Subsequent Single Visit 0502F 017 RAY ELLE Winn Non-Stre Test (___ 0,2) Non-Stress Test (___ 0,2) 84124 ELLE BELL OB Services Antepartum Care Only Subsequent Single Visit OB Services Antepartum Care Only Subsequent Single Visit 0502F RAY ELLE Winn Ultrasound Obstetric Limited Evaluation Ultrasound Obstetric Limited Evaluation 61893 ELLE BELL Non-Stre Test (___ 0,2) Non-Stress Test (___ 0,2) 09033 ELLE BELL OB Services Antepartum Care Only Subsequent Single Visit OB Services Antepartum Care Only Subsequent Single Visit 0502F ELLE BELL Non-Stre Test (___ 0,2) Non-Stress Test (___ 0,2) 50443 ELLE BELL Physician Supervised Injection Intramuscular Physician Supervised Injection Intramuscular 23353 SHERRON VALENZUELA Influenza Split Virus Vaccine IM Preserv Free 0.5mL Dosage Quadrivalent Influenza Split Virus Vaccine IM Preserv Free 0.5mL Dosage Quadrivalent 34856 SHERRON VALENZUELA Influenza Seasonal, injectable quadrivalent - preservative free; Series #: 1; .5 mL; IM; Left Arm; Mfg: Samares; Lot: [id number]; VIS given (Leia: 05/13/2015). DoD Immunization Administration By Injection, One Vaccine Immunization Administration By Injection, One Vaccine 46927 SHERRON VALENZUELA OB Services Antepartum Care Only Subsequent Single Visit OB Services Antepartum Care Only Subsequent Single Visit 0502F ELLE BELL Ultrasound Obstetric Limited Evaluation Ultrasound Obstetric Limited Evaluation 61825 ELLE BELL Non-Stre Test (___ 0,2) Non-Stress Test (___ 0,2) 47117 RAY ELLE MORGAN [facility] OB Services Antepartum Care Only Subsequent Single Visit OB Services Antepartum Care Only Subsequent Single Visit 0502F ZACHARIAH BASHIR [facility] OB Services Antepartum Care Only First Visit, With Report OB Services Antepartum Care Only First Visit, With Report 0500F ZACHARIAH BASHIR [facility] Childbirth preparation/Lamaz e cla es, non-physician provider, per se ion Childbirth preparation/Lamaz e classes, non-physician provider, per session S9436 JEF HULL [facility] Tdap Vaccine Tdap Vaccine 57355 017 RUDDY LEON Tdap; Series #: 1; .5 mL; IM; Left Arm; Mfg: Samares; Lot: [id number]; VIS given (Leia: 11/30/14). DoD Immunization Administration By Injection, One Vaccine Immunization Administration By Injection, One Vaccine 58051 RUDDY LEON [facility] Patient education, not otherwise cla ified, non-physician provider, individual, per se ion Patient education, not otherwise classified, non-physician provider, individual, per session S9445 017 OMERO PARDO [facility] Social History Combined list of available smoking, tobacco, and other social history from Department of Defense and Veterans Affairs facilities. Social History Type Response Date Comment Sourc e Sex Representation 07/06/2020 Unknow n Organization Tobacco Former-cigarette user Cigarette use:. Never-other tobacco user (not cigarettes) Other Tobacco use:. Ambulatory Pharmacy Sexual Orientation Ambula tory Pharmacy Gender identity Ambulator y Pharmacy This section is an empty social history section. DoD Assessment and Plan Combined list of future care activities from Department of Defense and Veterans Affairs facilities (e.g., assessment and plan notes, appointments, orders, and referrals). Additional future care activities may be listed in the Plan of Care section. Result Assessment and Plan Date Source Assessment and Plan Extracted from:Title : [facility] Author: CHRISTY SMITH MD Date: 09/21/25 1. Attention-deficit hyperactivity disorder, combined type Chronic, controlled on medication but also benefits from mental health counseling. No SI/HI - referral placed for her to resume counseling services given difficulty getting one without a referral. Ordered: Referral Request 2.0 - DoD 2. Unspecified menopausal and perimenopausal disorder Chronic, started perimenopause approx 2 years ago including vasomotor symptoms. [place] [facility] and has been taking progesterone and topical testosterone with improvement in symptoms. Discussed with her the absolute and relative contraindications to starting HRT and she denies all of them. - recommended starting Prempro (combo estrogen and progesterone) but given that [place] and her estrogen levels are normal she is hesitant to add estrogen to her regimen since she may not need it. I also discussed with her that I do not usually prescribe topical testosterone for perimenopause symptoms but offered her a referral to [facility] for management if she desires. Patient would like referral so I placed that for her. Ordered: Referral Request 2.0 - DoD Capt Christy Smith DO Family Medicine Faculty Physician [address] [place] [address], [facility] [place]TO Extracted from:Title: FM: ADHD Author: AMADOU PRESTON MD - PGY2, Family Medicine Date: 09/16/25 1. Attention-deficit hyperactivity disorder, combined type Chronic, controlled. No c/o medication s/e or non-adherence. PDMP aware reviewed and appropriate. No concern for medication abuse. Recommendations: - Cardiovascular exam WNL - BP at goalof <140/90 per JNC-8 guidelines - HR <100 - Discussed drug holidays on weekends and holidays - Refilled dextroamphetamine a mphetamine: -20 mg at 6 AM -30 mg at 10 AM -10 mg at 2 PM, PRN -Consider stopping 10 mg dose at next appointment after discussion - F/u in 3 months for prescription renewal and ongoing management, next appointment can be virtual, followed by in-person, alternating Ordered: dextroamphetamine-amphetamine( dextroamphetamine-amphetamine 10 mg oral tablet), 1 tab(s), Oral, Daily, Daily in the afternoon at 2 PM, # 90 tab(s), 0 total refill(s), Maintenance, Pharmacy: [facility] [Not filled] dextroamphetamine-amphetamine( dextroamphetamine-amphetamine 20 mg oral tablet), 1 tab(s), Oral, Daily, Daily at 6 AM, # 90 tab(s), 0 total refill(s), Maintenance, Pharmacy: [facility] dextroamphetamine-amphetamine( dextroamphetamine-amphetamine 30 mg oral tablet), 1 tab(s), Oral, Daily, Daily at 10 AM, # 90 tab(s), 0 total refill(s), Maintenance, Pharmacy: [facility] Capt Claudia (), [facility] Cable Armorer, PGY-3 [facility] [place] PINTO This note was dictated using [employer] dictation software. While it was proofread for errors, there may still be grammatical and dictation errors. Addendum by ANGELA STAPLES MD on September 16, 2025 13:45:51 SERVICE CREW LEADER On the day of encounter, I was available for discussion with the resident physician. Case was discussed with me in the Teach Room. I agree with the assessment and plan of care as documented above with any exceptions/additions noted below if necessary. All labs/rads/consults to be followed by the ordering provider. I discussed my concerns with the current dosing regimen. While patient has fluctuated for the last couple years with dosing, the additional 10 mg dosage (to transition to TID dosing, which is unusual in ADHD) is new as of the last year; While Adderall XR is preferred, patient has been prescribed various regimens of IR BID dosing at least dating back since 2021 (totaling approximately 35-50 mg/day). According to UTD: Adderall IR at doses >40 mg/day will rarely be necessary, doses as high as 60 mg/day with close monitoring may be necessary for optimal response in some patients. Weight since recent initiation of additional 10 mg dosing from 107 kg to 88 kg, roughly a 42 lb weight loss since mid 2023); while in conjunction with ~ two months of Contrave, I think that this weight loss is significant. Strongly recommend discontinuation of Adderrall IR 10 mg tablet at next appt and further evaluation of weight. MD Sly LEUNG, [facility], Family Medicine Faculty Physician [address] [place], [place] [address]Ad[place] [facility] Family Medicine Residency Program Future Appointments [id number] Appt. Date: 09/21/2025 8:00 AM Scheduled Provider: Christy Smith MD Phone: -- Fax: -- Extracted from:Title: FM - multiple complaints Author: GLORIA RUIZ DO Date: 06/11/25 1. Unspecified menopausal and perimenopausal disorder Patient reporting perimenopausal symptoms. She notes she has been getting progesterone and testosterone supplementation from a women's health clinic. Her estradiol levels were within normal limits however her progesterone and testosterone were significantly low. -Discussed patient's case with Dr. Box, OB-THERMAL TECHNICIAN, who recommended repeating labs including TSH, FSH, CBC, CMP, vitamin D and waiting for these labs to return befor starting on a estrogen/progesterone combo patch - Message sent to patient who confirmed she had access to patient portal prior to leaving the office. Ordered: CBC w/ Diff Comprehensive Metabolic Panel FSH and LH [id number] TSH w/ Reflex FT4 and Total T3 2. Obesity, class 3 Patient has been on zepbound she has been paying [id number] for from the women's health clinic. She reports that if possible she would like to start getting this from our clinic R ecommended the patient make a follow-up appointment to discuss this more in depth. 3. Attention-deficit hyperactivity disorder, combined type Chronic, controlled. No c/o medication s/e or non-adherence. PDMP aware reviewed and appropriate. No concern for medication abuse. Recommendations: - Cardiovascular exam WNL - BP at goalof <140/90 per JNC-8 guidelines - HR <100 - Discussed drug holidays on weekends and holidays - To monitor for misuse or diversion of stimulants, will have pt sign controlled substance agreement and require urine drug screening at f/u visit - F/u in 3 months for prescription renewal and ongoing management Ordered: dextroamphetamine-amphetamine( dextroamphetamine-amphetamine 10 mg oral tablet), 1 tab(s), Oral, Daily, Daily in the afternoon at 2 PM, # 90 tab(s), 0 total refill(s), Maintenance, Pharmacy: [facility] [Not filled] dextroamphetamine-amphetamine( dextroamphetamine-amphetamine 20 mg oral tablet), 1 tab(s), Oral, Daily, Daily at 6 AM, # 90 tab(s), 0 total refill(s), Maintenance, Pharmacy: [facility] [Not filled] dextroamphetamine-amphetamine( dextroamphetamine-amphetamine 30 mg oral tablet), 1 tab(s), Oral, Daily, Daily at 10 AM, # 90 tab(s), 0 total refill(s), Maintenance, Pharmacy: [facility] [Not filled] Capt Yadiel Caldera), [facility], Cable Armorer, PGY-3 [employer], [facility] [place] [facility] This note was dictated using [employer] dictation software. While it was proofread for errors, there may still be grammatical and dictation errors. Addendum by DELIO NGUYỄN on June 11, 2025 17:28:40 CDT On the date of this encounter, I was immediately available to assist the resident in the care of the patient. The resident discussed the diagnosis and treatment plan for this patient with me [id number]. I have reviewed and agree with the resident s findings and plan of care with the following exceptions: None. All labs/imaging/consults are to be followed by the ordering provider. Delio Nguyễn MD [facility], [facility], Family Medicine Physician [id number]/[facility] [place] ACHARYA Family Medicine Residency Bridge Tender Physician Extracted from:Title: [facility] [place]med - ADHD f/u Author: LUPIS BRIONES MD Date: 03/09/25 1. Attention-deficit hyperactivity disorder, combined type Chronic, controlled. No c/o medication s/e or non-adherence. PDMP aware reviewed and appropriate. No concern for medication abuse. No CV exam performed, telemed encounter. Recommendations: - Refill Adderall 20 qam 6 am, 30 mg qam 10 am, 10 mg qpm 2 pm; 90 tabs each - Discussed drug holidays on weekends and holidays - F/u in 3 months for prescription renewal and ongoing management - Next appt will need to be in-person, pt v/u Ordered: dextroamphetamine-amphetamine( dextroamphetamine-amphetamine 10 mg oral tablet), 1 tab(s), Oral, Daily, Daily in the afternoon at 2 PM, # 90 tab(s), 0 total refill(s), Maintenance, Pharmacy: [facility] [Not filled] dextroamphetamine-amphetamine( dextroamphetamine-amphetamine 20 mg oral tablet), 1 tab(s), Oral, Daily, Daily at 6 AM, # 90 tab(s), 0 total refill(s), Maintenance, Pharmacy: [facility] [Not filled] dextroamphetamine-amphetamine( dextroamphetamine-amphetamine 30 mg oral tablet), 1 tab(s), Oral, Daily, Daily at 10 AM, # 90 tab(s), 0 total refill(s), Maintenance, Pharmacy: [facility] [Not filled] Lupis Briones MD, SHANNON, MPH PGY-3, Family Medicine [place], [place] Addendum by SHYANNE SAUCEDO MD on March 12, 2025 12:09:36 CDT I certify that I was present for case discussion in the Family Medicine preceptor room at the time of this encounter. I have reviewed the note and agree with the findings, assessment, and plan except as I have documented below. Follow up as listed. All labs/imaging/consults to be followed by the ordering provider. Shyanne Saucedo MD, [facility] Family Medicine and Obstetrics Faculty Physician [address] [place] [address], [facility] [place], [place] Extracted from:Title: [facility] ADHD Virt Author: ANGEL HUNTLEY MD Date: 12/14/24 1. Attention-deficit hyperactivity disorder, combined type Chronic, controlled. Takes 30mg at 10am, 20mg at 6am, and 10mg in pm. [facility] to [facility]. - Cont. adderall - F/u in 3 months for med as well as lab [facility] Orders: dextroamphetamine-amphetamine( dextroamphetamine-amphetamine 30 mg oral tablet), See Instructions, 1 tab(s) Oral take at 6am daily, # 30 cap(s), 0 total refill(s), Maintenance, Pharmacy: [id number] [External Rx] Capt Angel Huntley MD Cable Armorer, PGY-[address] [place] [address], [place], [place] Addendum by RAMU FLORES MD, Family Medicine on December 14, 2024 13:43:40 CDT I certify that I was present for case discussion in the Family Medicine preceptor room at the time of this encounter. I have reviewed the note and agree with the findings, assessment, and plan except as I have documented below. Follow up as listed. All labs/imaging/consults to be followed by the ordering provider. Ramu Flores MD Extracted from:Title: [facility] ADHD Virt Author: ANGEL HUNTLEY MD Date: 12/11/24 1. Attention-deficit hyperactivity disorder, combined type Chronic, controlled. No c/o medication s/e or non-adherence. PDMP aware reviewed and appropriate. No concern for medication abuse. Recommendations: - Refill adderall 20mg q6am daily, 30mg q10am daily, and 10mg qpm daily. 30 day supply at [facility], 60 day supply at [facility] to start 30 days after initial script - Asymptomatic, no concerns for med - Discussed drug holidays on weekends and holidays - To monitor for misuse or diversion of stimulants, will have pt sign controlled substance agreement and require urine drug screening at f/u visit - F/u in 3 months for prescription renewal and ongoing management Ordered: dextroamphetamine-amphetamine( dextroamphetamine-amphetamine 10 mg oral tablet), 1 tab(s), Oral, Daily, Daily in the afternoon, # 60 tab(s), 0 total refill(s), Maintenance, Pharmacy: [facility] [Not filled] dextroamphetamine-amphetamine( dextroamphetamine-amphetamine 20 mg oral tablet), 1 tab(s), Oral, Daily, Daily at 6 AM, # 60 tab(s), 0 total refill(s), Maintenance, Pharmacy: [facility] [Not filled] dextroamphetamine-amphetamine( dextroamphetamine-amphetamine 30 mg oral tablet), 1 tab(s), Oral, Daily, Daily at 10 AM, # 60 tab(s), 0 total refill(s), Maintenance, Pharmacy: [facility] [Not filled] 2. Hormone replacement monitoring status Acute, uncontrolled. Started progesterone, testosterone, and semaglutide at [facility] for energy, libido, and weight loss. Patient will upload labwork from [facility]. - Follow-up labs from [facility] with patient - If not received within 3 months, follow-up at next visit - Advised patient on indications for mediation and patient desires continuation currently - Rediscussed medications as well as risks - Consider additional labwork pending current labs Orders: dextroamphetamine-amphetamine( dextroamphetamine-amphetamine 10 mg oral tablet), See Instructions, 1 tab(s) Oral take in the early afternoon daily, # 30 cap(s), 0 total refill(s), Maintenance, Pharmacy: [facility] #[id number] [External Rx] dextroamphetamine-amphetamine( dextroamphetamine-amphetamine 20 mg oral tablet), See Instructions, 1 tab(s) Oral take at 10am daily, # 30 cap(s), 0 total refill(s), Maintenance, Pharmacy: [facility] #[id number] [External Rx] dextroamphetamine-amphetamine( dextroamphetamine-amphetamine 30 mg oral tablet), See Instructions, 1 tab(s) Oral take at 6am daily, # 30 cap(s), 0 total refill(s), Maintenance, Pharmacy: [facility] [Not filled] Capt Angel Huntley MD Cable Armorer, PGY-[address] [place] [address], [place], [place] Addendum by ELIANA JEFFERSON DO on December 14, 2024 10:16:29 CDT On the date of this encounter, I was available for consultation and discussed the case with the resident face to face. I agree with the documentation above, with the following addendum: NONE. All labs/rads are the responsibility of the ordering provider. //SIGNED// Maj Eliana Jefferson-DO Joe, CAQSM Sports/Family Medicine Faculty Physician [address] [place] [address], [facility] F [facility] [place] Extracted from:Title: [facility]ADHDRx_Off [place] Clinic Note Author: DEEPA AMES DO Date: 09/22/24 1. Rhinosinusitis Acute, uncontrolled H&P consistent with this diagnosis without evidence of respiratory distress, moderate-severe dehydration, or acute vital sign changes. Bacterial etiology likely due to evidence of persistent symptoms of >10days and double sickening with viral URI. Will treat with antibiotics as ordered (Augmentin 875/125mg BID for 5-7days) as well as symptomatic therapy as indicated below: - Analgesics for pain relief, saline irrigation to decrease need for pain relief and increase patient comfort, intranasal glucocorticoids to decrease mucosal inflammation, two teaspoons of honey at bedtime for cough, warm soups for soothing relief of sore throat, and adequate fluid replacement. - Will give Flonase for inflammation and Afrin for vasoconstriction properties. - Will give Fluconazole 150 mg x1 d/t pt being prone to yeast infections. - Continue hand washing and rest as much as possible. - Patient s cough should slowly resolve over 4-6 weeks. - Patient should show improvement within 3-5 days of empiric antibiotic therapy. Recommend clinic follow up for worsening and/or no improvement in symptoms in 3-5 days. Recommend visiting the ER for respiratory distress or inability to hydrate. Patient understands and verbalizes agreement. Ordered: oxymetazoline nasal(Afrin 0.05% nasal spray), 2 spray(s), Nostril-Both, BID, Do not use for more than 3 days., # 30 mL, 0 total refill(s), Maintenance, 2 spray(s) Nostril-Both BID,Instr:Do not use for more than 3 days., Pharmacy: [facility] amoxicillin-clavulanate(Augmen tin 875 mg-125 mg oral tablet), 1 tab(s), Oral, every 12 hr, X 7 days, # 14 tab(s), 0 total refill(s), Acute, 09/29/2024, 1 tab(s) Oral every 12 hr,x7 days, Pharmacy: [facility], Respiratory, sinusitis fluticasone nasal(Flonase Allergy Relief 50 mcg/inh nasal spray), 1 spray(s), Inhale, Daily, # 16 g, 0 total refill(s), Maintenance, 1 spray(s) Inhale Daily, Pharmacy: [facility] fluconazole(fluconazole 150 mg oral tablet), 1 tab(s), Oral, As Directed, X 1 days, # 1 tab(s), 0 total refill(s), Acute, 09/23/2024, 1 tab(s) Oral As Directed,x1 days, Pharmacy: [facility], Fungal, prophylaxis 2. Attention-deficit hyperactivity disorder, combined type Chronic, controlled. No c/o medication s/e or non-adherence. PDMP aware reviewed and appropriate. No concern for medication abuse. Recommendations: - Cardiovascular exam WNL - BP at goalof <140/90 per JNC-8 guidelines - HR <100 - Discussed drug holidays on weekends and holidays - To monitor for misuse or diversion of stimulants, will have pt sign controlled substance agreement and require urine drug screening at f/u visit - F/u in 3 months for prescription renewal and ongoing management Ordered: dextroamphetamine-amphetamine( dextroamphetamine-amphetamine 10 mg oral tablet), 1 tab(s), Oral, Daily, Daily in the afternoon, # 90 tab(s), 0 total refill(s), Maintenance, 1 tab(s) Oral Daily,Instr:Daily in the afternoon, Pharmacy: [facility] [Not filled] dextroamphetamine-amphetamine( dextroamphetamine-amphetamine 20 mg oral tablet), 1 tab(s), Oral, Daily, Daily at 6 AM, # 90 tab(s), 0 total refill(s), Maintenance, 1 tab(s) Oral Daily,Instr:Daily at 6 AM, Pharmacy: [facility] [Not filled] dextroamphetamine-amphetamine( dextroamphetamine-amphetamine 30 mg oral tablet), 1 tab(s), Oral, Daily, Daily at 10 AM, # 90 tab(s), 0 total refill(s), Maintenance, 1 tab(s) Oral Daily,Instr:Daily at 10 AM, Pharmacy: [facility] [Not filled] Capt PATSY (), [facility] Cable Armorer Physician, PGY-[address] [place] [address] [facility] Family Medicine Residency Program [address] [facility], [address] [address] Addendum by KONRAD CLEMENS DO on September 23, 2024 10:19:24 SERVICE CREW LEADER I certify that I was present for case discussion in the Family Medicine preceptor room at the time of this encounter. I have reviewed the note and agree with the findings, assessment, and plan except as I have documented below. Follow up as listed. All labs/imaging/consults to be followed by the ordering provider. Maj Praveena, [facility], Staff Physician Extracted from:Title: [facility] follow up Author: CHRISTY SMITH MD Date: 05/29/24 Attention-deficit hyperactivity disorder, combined type Chronic, controlled. No c/o medication s/e or non-adherence. PDMP aware reviewed and appropriate. No concern for medication abuse. Recommendations: - continue current med regimen (see meds ordered below) - Cardiovascular exam at last appt was normal and BP have been stable (although unable to check today since virtual) - Discussed drug holidays on weekends and holidays - F/u in 3 months IN PERSON for prescription renewal and ongoing management Ordered: dextroamphetamine-amphetamine( dextroamphetamine-amphetamine 10 mg oral tablet), 1 tab(s), Oral, Daily, Daily in the afternoon, # 90 tab(s), 0 total refill(s), Maintenance, 1 tab(s) Oral Daily,Instr:Daily in the afternoon, Pharmacy: [facility] [Not filled] dextroamphetamine-amphetamine( dextroamphetamine-amphetamine 20 mg oral tablet), 1 tab(s), Oral, Daily, Daily at 6 AM, # 90 tab(s), 0 total refill(s), Maintenance, 1 tab(s) Oral Daily,Instr:Daily at 6 AM, Pharmacy: [facility] [Not filled] dextroamphetamine-amphetamine( dextroamphetamine-amphetamine 30 mg oral tablet), 1 tab(s), Oral, Daily, Daily at 10 AM, # 90 tab(s), 0 total refill(s), Maintenance, 1 tab(s) Oral Daily,Instr:Daily at 10 AM, Pharmacy: [facility] [Not filled] Obesity, unspecified Chronic, uncontrolled. Current BMI: Obesity Class II (35-39.9). No concerning signs of secondary causes of obesity. No e/o medication s/e. - labs were ordered at last appointment but patient never had them done, reordered them - continue to recommend lifestyle changes. - refilled her contrave today but since she hasnt been seen for weight check in person she needs an appointment to get her weight checked (discussed that she needs to come in within the next month) so that we can see if she is meeting her weight loss goal of 5-7% - if she isn meeting her weight loss goal, can consider changing to GLP1 - Goals of therapy: [_] weight loss of 5-7% Ordered: bupropion-naltrexone(Contrave 8 mg-90 mg oral tablet, extended release), See Instructions, Take 2 tablets twice daily (max dose 4 tablets/day), # 360 tab(s), 0 total refill(s), Maintenance, CaseId:[id number];Take 2 tablets twice daily (max dose 4 tablets/day), Take 2 tablets twice daily (max dose 4 tablets/day), Pharmacy: DO... Basic Metabolic Panel Hemoglobin A1c Lipid Panel Thyroid Stimulating Hormone Capt Christy Smith DO Family Medicine Faculty Physician [facility], [facility] [place] Extracted from:Title: [facility]- adhd, weight loss Author: CHRISTY SMITH MD Date: 03/17/24 1. Attention-deficit hyperactivity disorder, combined type Chronic, controlled. No c/o medication s/e or non-adherence. PDMP aware reviewed and appropriate. No concern for medication abuse. Recommendations: - Cardiovascular exam WNL - BP at goalof <140/90 per JNC-8 guidelines - HR <100 - F/u in 3 months for prescription renewal and ongoing management 2. Encounter for screening for malignant neoplasm of colon Due for routine screening - referred to [facility] for [place] Ordered: Referral Request 2.0 - DoD 3. Obesity, unspecified Chronic, uncontrolled. Current BMI: Obesity Class II (35-39.9). No concerning signs of secondary causes of obesity. No e/o medication s/e. Recommendations: - Labs: ordered labs as below [X] Lipid panel [X] A1C [X] TSH [X] CMP - Goals of therapy: weight loss of 5-7% - Pharmacologic management (indicated with BMI > 30 or BMI 27-29.9 with weight-related comorbidities) [X] Failed to meet a weight loss reduction of 5% lifestyle changes for at least 3-6 months [X] Initiate: Contrave (she is already on adderall so cannot take phentermine) [X] Prior Auth form submitted and approved - Lifestyle modifications: [X] Discussed the importance of weight loss and disease associated risks of obesity [X] Encouraged increased exercise regimen with goal of 150min of moderate exercise weekly [X] Discussed dietary modifications to include: low-fat/low-calorie, moderate-fat/low-calorie, low-carbohydrate, and Mediterranean diets - Referrals: [X] Nutrition - Follow Up: 2-4 weeks after initiation of therapy Pharmacologic Management: Trial Contrave (Buproprion-naltrexone): 90/8mg once daily in the morning for 1 week; increase as tolerated in weekly intervals: 1 tablet twice daily for 1 week; then 2 tablets in the morning and 1 tablet in the evening for 1 week; and then 2 tablets twice daily (max dose 4 tablets/day) - 12 week trial and if no response can trial GLP1 Ordered: buPROPion-naltrexone(Contrave 8 mg-90 mg oral tablet, extended release), 1 tab(s), Oral, every morning, Take 1 tablet in morning for 1 week; increase as tolerated in weekly intervals: 1 tablet twice daily for 1 week; then 2 tablets in the morning and 1 tablet in the evening for 1 week; and then 2 tablets twice daily (max d... Basic Metabolic Panel Hemoglobin A1c Lipid Panel Thyroid Stimulating Hormone Referral Request 2.0 - [facility] Orders: dextroamphetamine-amphetamine( dextroamphetamine-amphetamine 10 mg oral tablet), 1 tab(s), Oral, Daily, Daily in the afternoon, # 90 tab(s), 0 total refill(s), Maintenance, 1 tab(s) Oral Daily,Instr:Daily in the afternoon, Pharmacy: [facility] [Not filled] dextroamphetamine-amphetamine( dextroamphetamine-amphetamine 20 mg oral tablet), 1 tab(s), Oral, Daily, Daily at 6 AM, # 90 tab(s), 0 total refill(s), Maintenance, 1 tab(s) Oral Daily,Instr:Daily at 6 AM, Pharmacy: [facility] [Not filled] dextroamphetamine-amphetamine( dextroamphetamine-amphetamine 30 mg oral tablet), 1 tab(s), Oral, Daily, Daily at 10 AM, # 90 tab(s), 0 total refill(s), Maintenance, 1 tab(s) Oral Daily,Instr:Daily at 10 AM, Pharmacy: [facility] [Not filled] Capt Christy Smith DO Family Medicine Faculty Physician [facility] Medical [facility], [facility] [place] Extracted from:Title: Office Clinic Note - med refill, congestion Author: KRISTINA RANDHAWA DO Date: 10/16/23 1. Attention-deficit hyperactivity disorder, combined type Chronic, controlled with adderall IR at different dosages at different times of day. 20mg 6 am 30mg 10 am 10mg afternoon PRN Meds refilled. PDMP reviewed. Recommend an in person visit next for BP and weight evaluation. Pt agreeable, needs to schedule the appt well before she runs out of meds as we cannot give gap refills. 2. Nasal congestion Ongoing for weeks now, not improving. Recommend pt call appt line for an acute visit vs sick call to be examined in person, rule out sinusitis or ear effusions. Pt agreeable and will call vs walk in on MWF. Recommend to use flonase and oliver pot until then Future Appointments Appointment Date: 10/12/2025 09:20:00 AM Scheduled Provider: CHRISTY SMITH MD Location: [address] [place] [address] Appointment Type: PC FTR Future Scheduled TestsLaboratoryTSH w/ Reflex FT4 and Total T3 06/11/25FSH and LH [id number] 06/11/25CBC w/ Diff 06/11/25Comprehensive Metabolic Panel 06/11/25 10/01/2025 [id number] Assessment and Plan Extracted from:Title : [facility] virtual Author: CHRISTY SMITH MD Date: 09/21/25 1. Attention-deficit hyperactivity disorder, combined type Chronic, controlled on medication but also benefits from mental health counseling. No SI/HI - referral placed for her to resume counseling services given difficulty getting one without a referral. Ordered: Referral Request 2.0 - DoD 2. Unspecified menopausal and perimenopausal disorder Chronic, started perimenopause approx 2 years ago including vasomotor symptoms. [facility] and has been taking progesterone and topical testosterone with improvement in symptoms. Discussed with her the absolute and relative contraindications to starting HRT and she denies all of them. - recommended starting Prempro (combo estrogen and progesterone) but given that she [place] and her estrogen levels are normal she is hesitant to add estrogen to her regimen since she may not need it. I also discussed with her that I do not usually prescribe topical testosterone for perimenopause symptoms but offered [facility] a [facility] if she [facility]. Patient would like referral so I placed that for her. Ordered: Referral Request 2.0 - Tatum Smith DO Family Medicine Faculty Physician [address] [place] [address], [facility] [place] Extracted from:Title: FM: ADHD Author: AMADOU PRESTON MD - PGY2, Family Medicine Date: 09/16/25 1. Attention-deficit hyperactivity disorder, combined type Chronic, controlled. No c/o medication s/e or non-adherence. PDMP aware reviewed and appropriate. No concern for medication abuse. Recommendations: - Cardiovascular exam WNL - BP at goalof <140/90 per JNC-8 guidelines - HR <100 - Discussed drug holidays on weekends and holidays - Refilled dextroamphetamine a mphetamine: -20 mg at 6 AM -30 mg at 10 AM -10 mg at 2 PM, PRN -Consider stopping 10 mg dose at next appointment after discussion - F/u in 3 months for prescription renewal and ongoing management, next appointment can be virtual, followed by in-person, alternating Ordered: dextroamphetamine-amphetamine( dextroamphetamine-amphetamine 10 mg oral tablet), 1 tab(s), Oral, Daily, Daily in the afternoon at 2 PM, # 90 tab(s), 0 total refill(s), Maintenance, Pharmacy: [facility] [Not filled] dextroamphetamine-amphetamine( dextroamphetamine-amphetamine 20 mg oral tablet), 1 tab(s), Oral, Daily, Daily at 6 AM, # 90 tab(s), 0 total refill(s), Maintenance, Pharmacy: [facility] dextroamphetamine-amphetamine( dextroamphetamine-amphetamine 30 mg oral tablet), 1 tab(s), Oral, Daily, Daily at 10 AM, # 90 tab(s), 0 total refill(s), Maintenance, Pharmacy: [facility] Capt Claudia (), [facility] Cable Armorer, PGY-3 [facility] /[facility] [place] This note was dictated using [employer] dictation software. While it was proofread for errors, there may still be grammatical and dictation errors. Addendum by ANGELA STAPLES MD on September 16, 2025 13:45:51 SERVICE CREW LEADER On the day of encounter, I was available for discussion with the resident physician. Case was discussed with me in the Teach Room. I agree with the assessment and plan of care as documented above with any exceptions/additions noted below if necessary. All labs/rads/consults to be followed by the ordering provider. I discussed my concerns with the current dosing regimen. While patient has fluctuated for the last couple years with dosing, the additional 10 mg dosage (to transition to TID dosing, which is unusual in ADHD) is new as of the last year; While Adderall XR is preferred, patient has been prescribed various regimens of IR BID dosing at least dating back since 2021 (totaling approximately 35-50 mg/day). According to UTD: Adderall IR at doses >40 mg/day will rarely be necessary, doses as high as 60 mg/day with close monitoring may be necessary for optimal response in some patients. Weight since recent initiation of additional 10 mg dosing from 107 kg to 88 kg, roughly a 42 lb weight loss since mid 2023); while in conjunction with ~ two months of Contrave, I think that this weight loss is significant. Strongly recommend discontinuation of Adderrall IR 10 mg tablet at next appt and further evaluation of weight. MD Sly LEUNG, [facility] Family Medicine Faculty Physician [facility], [place] [facility] Family Medicine Residency Program Future Appointments [id number] Appt. Date: 09/21/2025 8:00 AM Scheduled Provider: Christy Smith MD Phone: -- Fax: -- Extracted from:Title: FM - multiple complaints Author: GLORIA RUIZ DO Date: 06/11/25 1. Unspecified menopausal and perimenopausal disorder Patient reporting perimenopausal symptoms. She notes she has been getting progesterone and testosterone supplementation from a women's health clinic. Her estradiol levels were within normal limits however her progesterone and testosterone were significantly low. -Discussed patient's case with Dr. Box, OB-THERMAL TECHNICIAN, who recommended repeating labs including TSH, FSH, CBC, CMP, vitamin D and waiting for these labs to return befor starting on a estrogen/progesterone combo patch - Message sent to patient who confirmed she had access to patient portal prior to leaving the office. Ordered: CBC w/ Diff Comprehensive Metabolic Panel FSH and LH [id number] TSH w/ Reflex FT4 and Total T3 2. Obesity, class 3 Patient has been on zepbound she has been paying [id number] for from the women's health clinic. She reports that if possible she would like to start getting this from our clinic R ecommended the patient make a follow-up appointment to discuss this more in depth. 3. Attention-deficit hyperactivity disorder, combined type Chronic, controlled. No c/o medication s/e or non-adherence. PDMP aware reviewed and appropriate. No concern for medication abuse. Recommendations: - Cardiovascular exam WNL - BP at goalof <140/90 per JNC-8 guidelines - HR <100 - Discussed drug holidays on weekends and holidays - To monitor for misuse or diversion of stimulants, will have pt sign controlled substance agreement and require urine drug screening at f/u visit - F/u in 3 months for prescription renewal and ongoing management Ordered: dextroamphetamine-amphetamine( dextroamphetamine-amphetamine 10 mg oral tablet), 1 tab(s), Oral, Daily, Daily in the afternoon at 2 PM, # 90 tab(s), 0 total refill(s), Maintenance, Pharmacy: [facility] [Not filled] dextroamphetamine-amphetamine( dextroamphetamine-amphetamine 20 mg oral tablet), 1 tab(s), Oral, Daily, Daily at 6 AM, # 90 tab(s), 0 total refill(s), Maintenance, Pharmacy: [facility] [Not filled] dextroamphetamine-amphetamine( dextroamphetamine-amphetamine 30 mg oral tablet), 1 tab(s), Oral, Daily, Daily at 10 AM, # 90 tab(s), 0 total refill(s), Maintenance, Pharmacy: [facility] [Not filled] Capt Werner (), [facility] Cable Armorer, PGY-3 [facility], [facility] This note was dictated using [employer] dictation software. While it was proofread for errors, there may still be grammatical and dictation errors. Addendum by DELIO NGUYỄN on June 11, 2025 17:28:40 CDT On the date of this encounter, I was immediately available to assist the resident in the care of the patient. The resident discussed the diagnosis and treatment plan for this patient with me [id number]. I have reviewed and agree with the resident s findings and plan of care with the following exceptions: None. All labs/imaging/consults are to be followed by the ordering provider. Delio Nguyễn MD [facility], [facility], Family Medicine Physician [id number] [facility] [place] Family Medicine Residency Bridge Tender Physician Extracted from:Title: [facility] Telemed - ADHD f/u Author: LUPIS BRIONES MD Date: 03/09/25 1. Attention-deficit hyperactivity disorder, combined type Chronic, controlled. No c/o medication s/e or non-adherence. PDMP aware reviewed and appropriate. No concern for medication abuse. No CV exam performed, telemed encounter. Recommendations: - Refill Adderall 20 qam 6 am, 30 mg qam 10 am, 10 mg qpm 2 pm; 90 tabs each - Discussed drug holidays on weekends and holidays - F/u in 3 months for prescription renewal and ongoing management - Next appt will need to be in-person, pt v/u Ordered: dextroamphetamine-amphetamine( dextroamphetamine-amphetamine 10 mg oral tablet), 1 tab(s), Oral, Daily, Daily in the afternoon at 2 PM, # 90 tab(s), 0 total refill(s), Maintenance, Pharmacy: [facility] [Not filled] dextroamphetamine-amphetamine( dextroamphetamine-amphetamine 20 mg oral tablet), 1 tab(s), Oral, Daily, Daily at 6 AM, # 90 tab(s), 0 total refill(s), Maintenance, Pharmacy: [facility] [Not filled] dextroamphetamine-amphetamine( dextroamphetamine-amphetamine 30 mg oral tablet), 1 tab(s), Oral, Daily, Daily at 10 AM, # 90 tab(s), 0 total refill(s), Maintenance, Pharmacy: [facility] [Not filled] Lupis Briones MD, SHANNON, MPH PGY-3, Family Medicine [facility], [facility], [place], [place] Addendum by SHYANNE SAUCEDO MD on March 12, 2025 12:09:36 CDT I certify that I was present for case discussion in the Family Medicine preceptor room at the time of this encounter. I have reviewed the note and agree with the findings, assessment, and plan except as I have documented below. Follow up as listed. All labs/imaging/consults to be followed by the ordering provider. Shyanne Saucedo MD, [facility], [facility] Family Medicine and Obstetrics Faculty Physician [address] [place] [address], [facility]/[place], [place] Extracted from:Title: [facility]- ADHD Virt Author: ANGEL HUNTLEY MD Date: 12/14/24 1. Attention-deficit hyperactivity disorder, combined type Chronic, controlled. Takes 30mg at 10am, 20mg at 6am, and 10mg in pm. [facility], [facility] to [facility]. - Cont. adderall - F/u in 3 months for med as well as lab [facility]: dextroamphetamine-amphetamine( dextroamphetamine-amphetamine 30 mg oral tablet), See Instructions, 1 tab(s) Oral take at 6am daily, # 30 cap(s), 0 total refill(s), Maintenance, Pharmacy: [facility] #[id number] [External Rx] Capt Angel Huntley MD Cable Armorer, PGY-[address] [place] [address], [place], [place] Addendum by RAMU FLORES MD, Family Medicine on December 14, 2024 13:43:40 CDT I certify that I was present for case discussion in the Family Medicine preceptor room at the time of this encounter. I have reviewed the note and agree with the findings, assessment, and plan except as I have documented below. Follow up as listed. All labs/imaging/consults to be followed by the ordering provider. Ramu Flores MD Extracted from:Title: [facility] [place] [facility] Author: ANGEL HUNTLEY MD Date: 12/11/24 1. Attention-deficit hyperactivity disorder, combined type Chronic, controlled. No c/o medication s/e or non-adherence. PDMP aware reviewed and appropriate. No concern for medication abuse. Recommendations: - Refill adderall 20mg q6am daily, 30mg q10am daily, and 10mg qpm daily. 30 day supply at [facility], 60 day supply at [facility] to start 30 days after initial script - Asymptomatic, no concerns for med - Discussed drug holidays on weekends and holidays - To monitor for misuse or diversion of stimulants, will have pt sign controlled substance agreement and require urine drug screening at f/u visit - F/u in 3 months for prescription renewal and ongoing management Ordered: dextroamphetamine-amphetamine( dextroamphetamine-amphetamine 10 mg oral tablet), 1 tab(s), Oral, Daily, Daily in the afternoon, # 60 tab(s), 0 total refill(s), Maintenance, Pharmacy: [facility] [Not filled] dextroamphetamine-amphetamine( dextroamphetamine-amphetamine 20 mg oral tablet), 1 tab(s), Oral, Daily, Daily at 6 AM, # 60 tab(s), 0 total refill(s), Maintenance, Pharmacy: [facility] [Not filled] dextroamphetamine-amphetamine( dextroamphetamine-amphetamine 30 mg oral tablet), 1 tab(s), Oral, Daily, Daily at 10 AM, # 60 tab(s), 0 total refill(s), Maintenance, Pharmacy: [facility] [Not filled] 2. Hormone replacement monitoring status Acute, uncontrolled. Started progesterone, testosterone, and semaglutide at [facility] for energy, libido, and weight loss. Patient will upload labwork from [facility]. - Follow-up labs from [facility] with patient - If not received within 3 months, follow-up at next visit - Advised patient on indications for mediation and patient desires continuation currently - Rediscussed medications as well as risks - Consider additional labwork pending current labs Orders: dextroamphetamine-amphetamine( dextroamphetamine-amphetamine 10 mg oral tablet), See Instructions, 1 tab(s) Oral take in the early afternoon daily, # 30 cap(s), 0 total refill(s), Maintenance, Pharmacy: [facility] #[id number] [External Rx] dextroamphetamine-amphetamine( dextroamphetamine-amphetamine 20 mg oral tablet), See Instructions, 1 tab(s) Oral take at 10am daily, # 30 cap(s), 0 total refill(s), Maintenance, Pharmacy: [facility] #[id number] [External Rx] dextroamphetamine-amphetamine( dextroamphetamine-amphetamine 30 mg oral tablet), See Instructions, 1 tab(s) Oral take at 6am daily, # 30 cap(s), 0 total refill(s), Maintenance, Pharmacy: [facility] [Not filled] Capt Angel Huntley MD Cable Armorer, PGY-[address] [place] [address], [facility] JEAN CARLOS Brito Addendum by ELIANA JEFFERSON DO on December 14, 2024 10:16:29 CDT On the date of this encounter, I was available for consultation and discussed the case with the resident face to face. I agree with the documentation above, with the following addendum: NONE. All labs/rads are the responsibility of the ordering provider. //SIGNED// Maj Eliana Jefferson-DO Joe, CAQSM Sports/Family Medicine Faculty Physician [address] [place] [address], [facility] JEAN CARLOS Brito Extracted from:Title: [facility] [place]ADHDRx_Off ice Clinic Note Author: DEEPA AMES DO Date: 09/22/24 1. Rhinosinusitis Acute, uncontrolled H&P consistent with this diagnosis without evidence of respiratory distress, moderate-severe dehydration, or acute vital sign changes. Bacterial etiology likely due to evidence of persistent symptoms of >10days and double sickening with viral URI. Will treat with antibiotics as ordered (Augmentin 875/125mg BID for 5-7days) as well as symptomatic therapy as indicated below: - Analgesics for pain relief, saline irrigation to decrease need for pain relief and increase patient comfort, intranasal glucocorticoids to decrease mucosal inflammation, two teaspoons of honey at bedtime for cough, warm soups for soothing relief of sore throat, and adequate fluid replacement. - Will give Flonase for inflammation and Afrin for vasoconstriction properties. - Will give Fluconazole 150 mg x1 d/t pt being prone to yeast infections. - Continue hand washing and rest as much as possible. - Patient s cough should slowly resolve over 4-6 weeks. - Patient should show improvement within 3-5 days of empiric antibiotic therapy. Recommend clinic follow up for worsening and/or no improvement in symptoms in 3-5 days. Recommend visiting the ER for respiratory distress or inability to hydrate. Patient understands and verbalizes agreement. Ordered: oxymetazoline nasal(Afrin 0.05% nasal spray), 2 spray(s), Nostril-Both, BID, Do not use for more than 3 days., # 30 mL, 0 total refill(s), Maintenance, 2 spray(s) Nostril-Both BID,Instr:Do not use for more than 3 days., Pharmacy: [facility] amoxicillin-clavulanate(Augmen tin 875 mg-125 mg oral tablet), 1 tab(s), Oral, every 12 hr, X 7 days, # 14 tab(s), 0 total refill(s), Acute, 09/29/2024, 1 tab(s) Oral every 12 hr,x7 days, Pharmacy: [facility], Respiratory, sinusitis fluticasone nasal(Flonase Allergy Relief 50 mcg/inh nasal spray), 1 spray(s), Inhale, Daily, # 16 g, 0 total refill(s), Maintenance, 1 spray(s) Inhale Daily, Pharmacy: [facility] fluconazole(fluconazole 150 mg oral tablet), 1 tab(s), Oral, As Directed, X 1 days, # 1 tab(s), 0 total refill(s), Acute, 09/23/2024, 1 tab(s) Oral As Directed,x1 days, Pharmacy: [facility], Fungal, prophylaxis 2. Attention-deficit hyperactivity disorder, combined type Chronic, controlled. No c/o medication s/e or non-adherence. PDMP aware reviewed and appropriate. No concern for medication abuse. Recommendations: - Cardiovascular exam WNL - BP at goalof <140/90 per JNC-8 guidelines - HR <100 - Discussed drug holidays on weekends and holidays - To monitor for misuse or diversion of stimulants, will have pt sign controlled substance agreement and require urine drug screening at f/u visit - F/u in 3 months for prescription renewal and ongoing management Ordered: dextroamphetamine-amphetamine( dextroamphetamine-amphetamine 10 mg oral tablet), 1 tab(s), Oral, Daily, Daily in the afternoon, # 90 tab(s), 0 total refill(s), Maintenance, 1 tab(s) Oral Daily,Instr:Daily in the afternoon, Pharmacy: [facility] [Not filled] dextroamphetamine-amphetamine( dextroamphetamine-amphetamine 20 mg oral tablet), 1 tab(s), Oral, Daily, Daily at 6 AM, # 90 tab(s), 0 total refill(s), Maintenance, 1 tab(s) Oral Daily,Instr:Daily at 6 AM, Pharmacy: [facility] [Not filled] dextroamphetamine-amphetamine( dextroamphetamine-amphetamine 30 mg oral tablet), 1 tab(s), Oral, Daily, Daily at 10 AM, # 90 tab(s), 0 total refill(s), Maintenance, 1 tab(s) Oral Daily,Instr:Daily at 10 AM, Pharmacy: [facility] [Not filled] Capt Yadiel GARNER), [facility] Cable Armorer Physician, PGY-[address] [place] [address] [employer] [address] [facility] Family [facility] Residency Program [address] [facility], [address], [place] [address] Addendum by KONRAD CLEMENS DO on September 23, 2024 10:19:24 SERVICE CREW LEADER I certify that I was present for case discussion in the Family Medicine preceptor room at the time of this encounter. I have reviewed the note and agree with the findings, assessment, and plan except as I have documented below. Follow up as listed. All labs/imaging/consults to be followed by the ordering provider. Maj Praveena, [facility], Staff Physician Extracted from:Title: [facility] [place] Author: CHRISTY SMITH MD Date: 05/29/24 Attention-deficit hyperactivity disorder, combined type Chronic, controlled. No c/o medication s/e or non-adherence. PDMP aware reviewed and appropriate. No concern for medication abuse. Recommendations: - continue current med regimen (see meds ordered below) - Cardiovascular exam at last appt was normal and BP have been stable (although unable to check today since virtual) - Discussed drug holidays on weekends and holidays - F/u in 3 months IN PERSON for prescription renewal and ongoing management Ordered: dextroamphetamine-amphetamine( dextroamphetamine-amphetamine 10 mg oral tablet), 1 tab(s), Oral, Daily, Daily in the afternoon, # 90 tab(s), 0 total refill(s), Maintenance, 1 tab(s) Oral Daily,Instr:Daily in the afternoon, Pharmacy: [facility] [Not filled] dextroamphetamine-amphetamine( dextroamphetamine-amphetamine 20 mg oral tablet), 1 tab(s), Oral, Daily, Daily at 6 AM, # 90 tab(s), 0 total refill(s), Maintenance, 1 tab(s) Oral Daily,Instr:Daily at 6 AM, Pharmacy: [facility] [Not filled] dextroamphetamine-amphetamine( dextroamphetamine-amphetamine 30 mg oral tablet), 1 tab(s), Oral, Daily, Daily at 10 AM, # 90 tab(s), 0 total refill(s), Maintenance, 1 tab(s) Oral Daily,Instr:Daily at 10 AM, Pharmacy: [facility] [Not filled] Obesity, unspecified Chronic, uncontrolled. Current BMI: Obesity Class II (35-39.9). No concerning signs of secondary causes of obesity. No e/o medication s/e. - labs were ordered at last appointment but patient never had them done, reordered them - continue to recommend lifestyle changes. - refilled her contrave today but since she hasnt been seen for weight check in person she needs an appointment to get her weight checked (discussed that she needs to come in within the next month) so that we can see if she is meeting her weight loss goal of 5-7% - if she isn meeting her weight loss goal, can consider changing to GLP1 - Goals of therapy: [_] weight loss of 5-7% Ordered: bupropion-naltrexone(Contrave 8 mg-90 mg oral tablet, extended release), See Instructions, Take 2 tablets twice daily (max dose 4 tablets/day), # 360 tab(s), 0 total refill(s), Maintenance, CaseId:[id number];Take 2 tablets twice daily (max dose 4 tablets/day), Take 2 tablets twice daily (max dose 4 tablets/day), Pharmacy: DO... Basic Metabolic Panel Hemoglobin A1c Lipid Panel Thyroid Stimulating Hormone Capt Christy Smith DO Family Medicine Faculty Physician [facility] Medical [facility] PINTO Extracted from:Title: [facility] [place], weight loss Author: CHRISTY SMITH MD Date: 03/17/24 1. Attention-deficit hyperactivity disorder, combined type Chronic, controlled. No c/o medication s/e or non-adherence. PDMP aware reviewed and appropriate. No concern for medication abuse. Recommendations: - Cardiovascular exam WNL - BP at goalof <140/90 per JNC-8 guidelines - HR <100 - F/u in 3 months for prescription renewal and ongoing management 2. Encounter for screening for malignant neoplasm of colon Due for routine screening - referred to [facility] for [place] Ordered: Referral Request 2.0 - DoD 3. Obesity, unspecified Chronic, uncontrolled. Current BMI: Obesity Class II (35-39.9). No concerning signs of secondary causes of obesity. No e/o medication s/e. Recommendations: - Labs: ordered labs as below [X] Lipid panel [X] A1C [X] TSH [X] CMP - Goals of therapy: weight loss of 5-7% - Pharmacologic management (indicated with BMI > 30 or BMI 27-29.9 with weight-related comorbidities) [X] Failed to meet a weight loss reduction of 5% lifestyle changes for at least 3-6 months [X] Initiate: Contrave (she is already on adderall so cannot take phentermine) [X] Prior Auth form submitted and approved - Lifestyle modifications: [X] Discussed the importance of weight loss and disease associated risks of obesity [X] Encouraged increased exercise regimen with goal of 150min of moderate exercise weekly [X] Discussed dietary modifications to include: low-fat/low-calorie, moderate-fat/low-calorie, low-carbohydrate, and Mediterranean diets - Referrals: [X] Nutrition - Follow Up: 2-4 weeks after initiation of therapy Pharmacologic Management: Trial Contrave (Buproprion-naltrexone): 90/8mg once daily in the morning for 1 week; increase as tolerated in weekly intervals: 1 tablet twice daily for 1 week; then 2 tablets in the morning and 1 tablet in the evening for 1 week; and then 2 tablets twice daily (max dose 4 tablets/day) - 12 week trial and if no response can trial GLP1 Ordered: buPROPion-naltrexone(Contrave 8 mg-90 mg oral tablet, extended release), 1 tab(s), Oral, every morning, Take 1 tablet in morning for 1 week; increase as tolerated in weekly intervals: 1 tablet twice daily for 1 week; then 2 tablets in the morning and 1 tablet in the evening for 1 week; and then 2 tablets twice daily (max d... Basic Metabolic Panel Hemoglobin A1c Lipid Panel Thyroid Stimulating Hormone Referral Request 2.0 - DoD Orders: dextroamphetamine-amphetamine( dextroamphetamine-amphetamine 10 mg oral tablet), 1 tab(s), Oral, Daily, Daily in the afternoon, # 90 tab(s), 0 total refill(s), Maintenance, 1 tab(s) Oral Daily,Instr:Daily in the afternoon, Pharmacy: [facility] [Not filled] dextroamphetamine-amphetamine( dextroamphetamine-amphetamine 20 mg oral tablet), 1 tab(s), Oral, Daily, Daily at 6 AM, # 90 tab(s), 0 total refill(s), Maintenance, 1 tab(s) Oral Daily,Instr:Daily at 6 AM, Pharmacy: [facility] [Not filled] dextroamphetamine-amphetamine( dextroamphetamine-amphetamine 30 mg oral tablet), 1 tab(s), Oral, Daily, Daily at 10 AM, # 90 tab(s), 0 total refill(s), Maintenance, 1 tab(s) Oral Daily,Instr:Daily at 10 AM, Pharmacy: [facility] [Not filled] Capt Christy Smith DO Family Medicine Faculty Physician [address] [place] [address], [facility] [employer] Extracted from:Title: Office Clinic Note - med refill, congestion Author: KRISTINA RANDHAWA DO Date: 10/16/23 1. Attention-deficit hyperactivity disorder, combined type Chronic, controlled with adderall IR at different dosages at different times of day. 20mg 6 am 30mg 10 am 10mg afternoon PRN Meds refilled. PDMP reviewed. Recommend an in person visit next for BP and weight evaluation. Pt agreeable, needs to schedule the appt well before she runs out of meds as we cannot give gap refills. 2. Nasal congestion Ongoing for weeks now, not improving. Recommend pt call appt line for an acute visit vs sick call to be examined in person, rule out sinusitis or ear effusions. Pt agreeable and will call vs walk in on MWF. Recommend to use flonase and oliver pot until then Future Appointments Appointment Date: 10/12/2025 09:20:00 AM Scheduled Provider: CHRISTY SMITH MD Location: [address] [place] [address] Appointment Type: PC FTR Future Scheduled TestsLaboratoryTSH w/ Reflex FT4 and Total T3 06/11/25FSH and LH [id number] 06/11/25CBC w/ Diff 06/11/25Comprehensive Metabolic Panel 06/11/25 10/01/2025 Unknown Organization Functional Status Combined list of recent functional and cognitive assessments recorded at [facility] ([facility] Functional [place] Measurement (FIM) Scale: 1 = Total Assistance (Subject = 0% +), 2 = Maximal Assistance (Subject = 25% +), 3 = Moderate Assistance (Subject = 50% +), 4 = Minimal Assistance (Subject = 75% +), 5 = Supervision, 6 = Modified [place] (Device), 7 = Complete [place] (Timely, Safely). Assessment Date/Time Source Assessment Type Assessment Skill Assessment Score Assessment Details No data available for this section
--- OUTSIDE RECORDS SUMMARY | 2025-10-01 01:08 | XMS_ITS | Encounter Summary ---
Author Organization [facility] Health Address [address] [place] [address] Care Team Providers Care Corporate Safety Director Name Role Phone Unavailable Primary Care Provider Unavailabl e Prior Encounters Date Type Department Care Team Description 10/26/2019 Converted CPS Chart Documents [facility] [address] [place] [phone] <No scans attached> 10/26/2019 Converted 13x Documents [facility] [id number] [place] [phone] <No scans attached> Plan of Treatment [...]
--- OUTSIDE RECORDS SUMMARY | 2025-10-01 01:08 | XMS_ITS | Clinical Summary ---
Author Organization [facility] Health Address [address] [place] [address] Care Team Providers Care Tool Design Engineer Name Role Phone Unavailable Primary Care Provider [...]
--- OUTSIDE RECORDS SUMMARY | 2025-10-01 01:08 | XMS_ITS | Clinical Summary ---
Author Organization [facility] Address [address] [place] [address] Care Team Providers Care Equity Holder Name Role Phone Unavailable Primary Care Provider [...] patient's age to complete this topic Insurance [facility] EM[facility]MENT
[2025-10-01 02:19] VITALS: BP 132/87; PULSE 99; RESP 16; TEMP 36.4; O2SAT 97
--- NOTE | 2025-10-01 02:20 | PC.NURSE ---
pt states she took hydrocodone at bedtime 2200 with no relief.
--- OUTSIDE RECORDS SUMMARY | 2025-10-01 03:28 | XMS_ITS | Continuity of Care Document ---
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 It does not include entries that were removed or entered in error. Problem Status Onset Date Problem Type Date of Resolution Comments Source Attention-deficit hyperactivity disorder, combined type Active 09/16/2025 Diagnosis 6130C-Af-C -375Th [facility] Attention-deficit hyperactivity disorder, other type Active 04/29/2018 Condition [facility] visit for: screening exam Inactive Condition [facility] Abnormal cervical Papanicolaou smear Active Condition 6130C- Af-C -375Th [facility]Sco tt Attention-deficit hyperactivity disorder, combined type Active Condition 6130C-Af-C -375Th [facility] Unspecified menopausal and perimenopausal disorder Active Condition 6130C-Af-C -375Th [facility] Medications Combined list of outpatient medications from [...] refill(s ), Soft Stop Discont inued 09/18/202320[address] [place] [address] [facility] Adderall 30 mg tablet See Rx Instruct ions, # 30 EA, 0 total refill(s ), Hard Stop Complet ed 04/23/2023 3 2022 30.0 Ambulat ory Pharmac y Afrin 0.05% nasal spray 2 spray(s) , Nostril- Both, BID, Do not use for more than 3 days., # 30 mL, 0 total refill(s ), Jeremias valles, Pharmacy : 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 , Respirat ory, sinusiti s Oral (given by mouth) Complet ed Chronic rhinitis 09/29/2024 4 2023 14.0 6130C-A f-C-375 Th Med[facility]- Adolph bisacodyl 5 mg oral tablet 4 tab(s), Oral, Daily, Take per colonosc opy prep directio ns: Take two tablets at 4pm and two tablets at 8pm, # 4 tab(s), 0 total refill(s ), Maintenestephania hernandese, Pharmacy : [facility] Oral (given by mouth) Discont inued [...] 0 total refill(s ), Maintena gretae, CaseId:[id number]; T1 tablet in morning for 1 week; increase as tolerate d in weekly interval s: 1 tab BID for 1 week; then 2 tabs in the AM and 1 tab in the evening for 1 week; and then 2 tablets BID, Pharmacy : [facility] Oral (given by mouth) Discont inued Obesity, unspecified 05/29/20242023 360.0 6130C-A f-C-375 Th [facility] Contrave 8 mg-90 mg oral tablet, extended release See Instruct ions, Take 2 tablets twice daily (max dose 4 tablets/ day), # 360 tab(s), 0 total refill(s ), Maintena nce, CaseId:[id number]; Take 2 tablets twice daily (max dose 4 tablets/ day), Pharmacy : [facility] Discont inued Obesity, unspecified 12/11/2024 4 2024 360.0 6130C-A f-C-375 Th [facility] dextroamphe tamine-amph etamine 10 mg oral tablet 1 tab(s), Oral, Daily, Daily in the afternoo n, # 90 tab(s), 0 total refill(s ), [facility], Pharmacy : [facility] Oral (given by mouth) Discont inued Attention-defi cit hyperactivity disorder, combined type 05/29/2024 4 2023 90.0 6130C-A f-C-375 Th [facility] dextroamphe tamine-amph etamine 10 mg oral tablet 1 tab(s), Oral, Daily, Daily in the afternoo n, # 90 tab(s), 0 total refill(s ), [facility], Pharmacy : [facility] Oral (given by mouth) Discont inued Attention-defi cit hyperactivity disorder, combined type 03/17/2024 4 2023 90.0 6130C-A f-C-375 Th [facility] dextroamphe tamine-amph etamine 10 mg oral tablet See Instruct ions, 1 tab(s) Oral take in the early afternoo n daily, # 30 cap(s), 0 total refill(s ), [facility], Pharmacy : [id number] Discont inued 03/09/20252024 30.0 6130C-A f-C-375 Th [facility] dextroamphe tamine-amph etamine 10 mg oral tablet 1 tab(s), Oral, Daily, Daily in the afternoo n at 2 PM, # 90 tab(s), 0 total refill(s ), [facility], Pharmacy : [facility] Oral (given by mouth) Discont inued Attention-defi cit hyperactivity disorder, combined type 06/11/2025 5 2024 90.0 6130C-A f-C-375 Th [facility] dextroamphe tamine-amph etamine 10 mg oral tablet 1 tab(s), Oral, Daily, Daily in the afternoo n at 2 PM, # 90 tab(s), 0 total refill(s ), Maintena [facility], Pharmacy : [facility] Oral (given by mouth) Discont inued Attention-defi cit hyperactivity disorder, combined type 09/16/2025 5 2024 90.0 6130C-A f-C-375 Th [facility] dextroamphe tamine-amph etamine 10 mg oral tablet 1 tab(s), Oral, Daily, Daily in the afternoo n, # 90 tab(s), 0 total refill(s ), [facility], Pharmacy : [facility] Oral (given by mouth) [facility] ed Attention-defi cit hyperactivity disorder, combined type 09/22/2024 4 2023 90.0 6130C-A f-C-375 Th [facility] dextroamphe tamine-amph etamine 10 mg oral tablet 1 tab(s), Oral, Daily, Daily in the afternoo n, # 60 tab(s), 0 total refill(s ), [facility], Pharmacy : [facility] Oral (given by mouth) Discont inued Attention-defi cit hyperactivity disorder, combined type 03/09/20252024 60.0 6130C-A f-C-375 Th [facility] dextroamphe tamine-amph etamine 10 mg oral tablet 1 tab(s), Oral, Daily, Daily in the afternoo n, # 90 tab(s), 0 total refill(s ), [facility], Pharmacy : [facility] Oral (given by mouth) [facility] ed Attention-defi cit hyperactivity disorder, combined type 12/11/2024 5 2024 90.0 6130C-A f-C-375 Th [facility] dextroamphe tamine-amph etamine 10 mg oral tablet 1 tab(s), Oral, Daily, Daily in the afternoo n at 2 PM, # 90 tab(s), 0 total refill(s ), Maintena txe, Pharmacy : [facility] Oral (given by mouth) Ordered Attention-defi cit hyperactivity disorder, combined type 5 2024 90.0 6130C-A f-C-375 Th [facility] dextroamphe tamine-amph etamine 15 mg oral tablet 1 tab(s), Oral, BID, # 180 tab(s), 0 total refill(s ), [facility], Pharmacy : [facility] Oral (given by mouth) Discont inued [...] # 90 tab(s), 0 total refill(s ), [facility], Pharmacy : [facility] Oral (given by mouth) Discont inued Attention-defi cit hyperactivity disorder, combined type 03/17/2024 4 2023 90.0 6130C-A f-C-375 Th [facility] dextroamphe tamine-amph etamine 20 mg oral tablet 1 tab(s), Oral, Daily, Daily at 6 AM, # 90 tab(s), 0 total refill(s ), [facility], Pharmacy : [facility] Oral (given by mouth) Discont inued Attention-defi cit hyperactivity disorder, combined type 05/29/2024 4 2023 90.0 6130C-A f-C-375 Th [facility] dextroamphe tamine-amph etamine 20 mg oral tablet 1 tab(s), Oral, Daily, Daily at 6 AM, # 90 tab(s), 0 total refill(s ), [facility], Pharmacy : [facility] Oral (given by mouth) Discont inued Attention-defi cit hyperactivity disorder, combined type 06/11/2025 5 2024 90.0 6130C-A f-C-375 Th [facility] dextroamphe tamine-amph etamine 20 mg oral tablet 1 tab(s), Oral, Daily, Daily at 6 AM, # 90 tab(s), 0 total refill(s ), [facility], Pharmacy : [facility] Oral (given by mouth) Discont inued Attention-defi cit hyperactivity disorder, combined type 09/16/2025 5 2024 90.0 6130C-A f-C-375 Th [facility] dextroamphe tamine-amph etamine 20 mg oral tablet 1 tab(s), Oral, every morning, # 90 tab(s), 0 total refill(s ), [facility], Pharmacy : [facility] Oral (given by mouth) Discont inued Attention-defi cit hyperactivity disorder, unspecified type 10/16/20232023 90.0 6130C-A f-C-375 Th [facility] dextroamphe tamine-amph etamine 20 mg oral tablet 1 tab(s), Oral, Daily, Daily at 6 AM, # 90 tab(s), 0 total refill(s ), [facility], Pharmacy : [facility] Oral (given by mouth) Complet ed Attention-defi cit hyperactivity disorder, combined type 09/22/2024 4 2023 90.0 6130C-A f-C-375 Th [facility] dextroamphe tamine-amph etamine 20 mg oral tablet See Instruct ions, 1 tab(s) Oral take at 10am daily, # 30 cap(s), 0 total refill(s ), [facility], [id number] Cancele d 01/11/20252024 30.0 6130C-A f-C-375 Th [facility] dextroamphe tamine-amph etamine 20 mg oral tablet 1 tab(s), Oral, Daily, Daily at 6 AM, # 60 tab(s), 0 total refill(s ), Jeremias [facility], Pharmacy : [facility] Oral (given by mouth) Discont inued Attention-defi cit hyperactivity disorder, combined type 03/09/2025 5 2024 60.0 6130C-A f-C-375 Th [facility] dextroamphe tamine-amph etamine 20 mg oral tablet 1 tab(s), Oral, Daily, Daily at 6 AM, # 90 tab(s), 0 total refill(s ), Sourav Stafford, Pharmacy : [facility] Oral (given by mouth) Complet ed Attention-defi cit hyperactivity disorder, combined type 12/11/2024 4 2024 90.0 6130C-A f-C-375 Th [facility]- Adolph dextroamphe tamine-amph etamine 20 mg oral [...] 90 tab(s), 0 total refill(s ), Jeremias [facility], Pharmacy : [facility] Oral (given by mouth) Ordered Attention-defi [...] # 90 tab(s), 0 total refill(s ), [facility], Pharmacy : [facility] Oral (given by mouth) Discont inued Attention-defi cit hyperactivity disorder, combined type 05/29/2024 4 2023 90.0 6130C-A f-C-375 Th [facility] dextroamphe tamine-amph etamine 30 mg oral tablet 1 tab(s), Oral, Daily, Daily at 10 AM, # 90 tab(s), 0 total refill(s ), [facility], Pharmacy : [facility] Oral (given by mouth) Discont inued Attention-defi cit hyperactivity disorder, combined type 03/17/2024 4 2023 90.0 6130C-A f-C-375 Th [facility] dextroamphe tamine-amph etamine 30 mg oral tablet 1 tab(s), Oral, Daily, Daily at 10 AM, # 90 tab(s), 0 total refill(s ), [facility], Pharmacy : [facility] Oral (given by mouth) Discont inued Attention-defi cit hyperactivity disorder, combined type 06/11/2025 5 2024 90.0 6130C-A f-C-375 Th [facility] dextroamphe tamine-amph etamine 30 mg oral tablet 1 tab(s), Oral, Daily, Daily at 10 AM, # 90 tab(s), 0 total refill(s ), [facility], Pharmacy : [facility] Oral (given by mouth) Discont inued Attention-defi cit hyperactivity disorder, combined type 09/16/2025 5 2024 90.0 6130C-A f-C-375 Th [facility] dextroamphe tamine-amph etamine 30 mg oral tablet 1 tab(s), Oral, Daily, Daily at 10 AM, # 90 tab(s), 0 total refill(s ), [facility], Pharmacy : [facility] Oral (given by mouth) Complet ed Attention-defi cit hyperactivity disorder, combined type 09/22/2024 4 2023 90.0 6130C-A f-C-375 Th [facility] dextroamphe tamine-amph etamine 30 mg oral tablet See Instruct ions, 1 tab(s) Oral take at 6am daily, # 30 cap(s), 0 total refill(s ), [facility], Pharmacy : [facility] ed 12/14/20242024 30.0 6130C-A f-C-375 Th [facility]- [facility] dextroamphe tamine-amph etamine 30 mg oral tablet 1 tab(s), Oral, Daily, Daily at 10 AM, # 60 tab(s), 0 total refill(s ), [facility], Pharmacy : [facility] Oral (given by mouth) Discont inued Attention-defi cit hyperactivity disorder, combined type 03/09/2025 5 2024 60.0 6130C-A f-C-375 Th [facility]- [facility] dextroamphe tamine-amph etamine 30 mg oral tablet 1 tab(s), Oral, Daily, Daily at 10 AM, # 90 tab(s), 0 total refill(s ), [facility], Pharmacy : [facility] Oral (given by mouth) Complet ed [...] # 90 tab(s), 0 total refill(s ), [facility], Pharmacy : [facility] Oral (given by mouth) Ordered Attention-defi cit hyperactivity disorder, combined type 5 2024 90.0 6130C-A shubham-C-375 Th [facility]olph Flonase Allergy Relief 50 mcg/inh nasal spray 1 spray(s) , Inhale, Daily, # 16 g, 0 total refill(s ), [facility], Pharmacy : 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 , Fungal, prophyla xis Oral (given [...] Stop Discont inued 09/21/20252024 61TonyCTamika jalloh-C-375 Th [facility]- [facility]olph MiraLax oral powder for reconstitut ion See Instruct ions, Take per colonosc opy prep directio ns: At 5PM or 6PM drink 8 ounces (one glassful ) of the Miralax/ liquid mixture. Repeat every 15 minutes until you have finished the 2 liter/64 oz. of Miralax/ liquid (approxi mately 2 hours)., # 255 g, 0 total refill(s ), Jeremias valles, Pharmacy : [facility] Discont inued 09/21/20252024 255.0 6130C-A -C-375 Th [facility]- Adolph norethindro ne-ethinyl estradiol with iron 1.5 [...] total refill(s ), Jeremias valles, Pharmacy : [facility] Chew Discont inued 09/21/20252024 3.0 6130C-A -C-375 Th [facility] tirzepetide tirzepet tang, 0 total refill(s ), Jeremias nce Ordered 2024 6130C-A f-C-375 Th [facility] Zofran ODT 8 mg oral tablet, disintegrat ing 1 tab(s), Oral, every 8 hr, PRN Nausea or Vomiting , Take prior to colonsoc opy prep, # 1 tab(s), 0 total refill(s ), Jeremias valles, Pharmacy : [facility] Oral (given by mouth) Discont inued 09/21/20252024 1.0 6130C-A f-C-375 Th [facility] Allergies, Adverse Reactions, Alerts Combined list of allergies from Department of Defense and Veterans Affairs facilities. It does not include entries that were removed or entered in error. Substance Category Reaction Severity Reaction type Status Date Reported Comments Source LISINOPRIL Drug allergy (disorder) active 10/18/2023 [facility] ([facility] [place]) lisinopril Drug allergy facial swell Mild Active 6130C-Af- C-375Th [facility] jeannette Immunizations Combined list of available immunizations from the Department of Defense and Veterans Affairs facilities. Immunization Series Date Given Administered By Site Reaction Lot Number CVX Code Drug Director Of Pupil Personnel Program Status Comments Source zz- COVID Vaccine Pfizer 30 mcg/0.3 mL 2020 DL Cardenas Shoul owen, left (delt oid) [id number] PFIZER complet ed zz- COVID Vaccine Pfizer 30 mcg/0.3 mL 02/13/21 Recorded No Facilit y Access zz- COVID Vaccine Pfizer 30 mcg/0.3 mL 2020 MIHIR Shoul owen, left (delt oid) [id number] PFIZER complet ed zz- COVID Vaccine Pfizer 30 mcg/0.3 mL 01/24/21 Recorded No Facilit y Access influenza, injectable, quadrivalent- pf 2017 zzLef t Arm [id number] 150 [employer] complet ed influenza , injectabl e, quadrival ent-pf 09/23/18 Given Ambulat ory Pharmac y Influenza, injectable, quadrivalent, preservative free 1 2017 EDWIN ALLEN [id number] 150 [facility] ([facility]) complet ed Influenza , injectabl e, quadrival ent, preservat peri free DoD influenza, injectable, quadrivalent- pf 2016 zzLef t Arm [id number] 150 [employer] complet ed influenza , injectabl e, quadrival ent-pf 07/29/17 Given Ambulat ory Pharmac y Influenza, injectable, quadrivalent, preservative free 1 2016 SHERRON VALENZUELA [id number] 150 [facility] ([facility]) complet ed Influenza , injectabl e, quadrival ent, preservat peri free DoD tetanus, diphtheria, acellular pertu is 2016 zzLef t Arm [id number] 115 [employer] complet ed tetanus, diphtheri a, acellular pertussis 06/07/17 Given Ambulat ory Pharmac y tetanus toxoid, reduced diphtheria toxoid, and acellular pertu is vaccine, adsorbed 1 2016 RUDDY LEON [id number] 115 [facility] ([facility]) complet ed tetanus toxoid, reduced diphtheri a [...] e Data: SARS-CoV-2 detection results obtained using [employer] Platform for molecular based testing. The laboratory is certified under Clinical Laboratory Improvement Program (CLIP) and College of [employer] s (CAP) as qualified to perform [...] website: https://www .fda.gov/Me afiaSerafin s/Safety/Em ergencySitu ations/ucm1 [address]38.htm [address] [place] [address] Molecular Infectiou s Disease Reason for Test? Screenin g (10/15/21 10:43 AM) 10/[address] [place] [address] Urinalysi s WBC, Wet Prep None ( 8:23 AM) 09/[address] [place] [address] Urinalysi s Yeast, Wet Prep Fungal Not Pres ( 8:23 AM) 09/[address] [place] [address] Urinalysi s Trichomona s, Wet Prep Not Present ( 1 8:23 AM) 09/[address] [place] [address] Urinalysi s Clue Cells, Wet Prep Not Present ( 1 8:23 AM) 09/[address] [place] [address] Infectiou s Disease Chlamydia Scrn Negative 2 ( 1 8:23 AM) 09/04 N Interpretiv e Data: THESE ASSAYS ARE NOT FDA-CLEARED OR VALIDATED BY THE MANUFACTURE R ([facility]) IN LESS THAN 14 YEAR AGE GROUP [address] [place] [address] Infectiou s Disease GC Scrn Negative 5 ( 1 8:23 AM) 09/04 N Interpretiv e Data: The Chlamydia trachomatis and Neisseria gonorrhoeae assays using the Aptima Combo 2 assay kit on [facility] by [employer] are not FDA-approve d for conjunctiva l swab as specimen type. This source is validated and its performance characteris tics have been validated by [facility] IAW CLIA guidelines. [facility] is certified under the CLIA 1987 as qualified to perform high complexity clinical laboratory testing. THESE ASSAYS ARE NOT FDA-CLEARED OR VALIDATED BY THE MANUFACTURE R ([facility]) IN LESS THAN 14 YEAR AGE GROUP [address] [place] [address] Chemistry Beta hCG, Urine Qual Negative 8 [...] and that levels are below <25 mIU/ml. [address] [place] [address] Urinalysi s UA Waxy Cast 0 /HPF 09/[address] [place] [address] Urinalysi s UA Granular Cast 0 /HPF 09/[address] [place] [address] Urinalysi s UA Hyaline Cast 0 /HPF 09/[address] [place] [address] Urinalysi s UA Sperm 0 /HPF 09/[address] [place] [address] Urinalysi s UA Trichomona s 0 /HPF 09/[address] [place] [address] Urinalysi s UA Ketones Negative ( 7:13 AM) 09/[address] [place] [address] Urinalysi s UA Blood Trace *ABN* ( 7:13 AM) 09/[address] [place] [address] Urinalysi s UA Clarity Clear 09/[address] [place] [address] Urinalysi s UA Leuk Esterase Negative ( 7:13 AM) 09/[address] [place] [address] Urinalysi s UA Nitrite Negative ( 7:13 AM) 09/[address] [place] [address] Urinalysi s UA Fatty Cast 0 /HPF 09/[address] [place] [address] Urinalysi s UA Color Light-Ye llow 09/[address] [place] [address] Urinalysi s UA RBC Cast 0 /HPF 09/[address] [place] [address] Urinalysi s UA Spec Opal 1.027 1.005 - 1.030 09/[address] [place] [address] Urinalysi s UA WBC Cast 0 /HPF 09/[address] [place] [address] Urinalysi s UA Bacteria Rare /HPF 09/[address] [place] [address] Urinalysi s UA WBC 1 /HPF 0 - 5 09/[address] [place] [address] Urinalysi s UA RBC <1 /HPF 0 - 2 09/[address] [place] [address] Urinalysi s UA Appear Clear 09/[address] [place] [address] Urinalysi s UA Trip Phos Crystal 0 /HPF 09/[address] [place] [address] Urinalysi s UA Leucine Crystal 0 /HPF 09/[address] [place] [address] Urinalysi s UA Cystine Crystal 0 /HPF 09/[address] [place] [address] Urinalysi s UA Ca Ox Crystal 0 /HPF 09/[address] [place] [address] Urinalysi s UA Amorph Crystal 0 /HPF 09/[address] [place] [address] Urinalysi s UA Transition al Epi 0 /HPF 09/[address] [place] [address] Urinalysi s UA Tyrosine Crystal 0 /HPF 09/[address] [place] [address] Urinalysi s UA Renal Epi 0 /HPF 09/[address] [place] [address] Urinalysi s UA Epi Non-Squam 0 /HPF 09/[address] [place] [address] Urinalysi s UA Epi Squam Many /HPF 09/[address] [place] [address] Urinalysi s UA Broad Cast 0 /HPF 09/[address] [place] [address] Urinalysi s UA Mucous Few /LPF 09/[address] [place] [address] Urinalysi s UA Uric Acid Crystal 0 /HPF 09/[address] [place] [address] Urinalysi s UA Cellular Cast 0 /HPF 09/[address] [place] [address] Urinalysi s UA Ca Carb Crystal 0 /HPF 09/[address] [place] [address] Urinalysi s UA Epi Cast 0 /HPF 09/[address] [place] [address] Urinalysi s UA Dysmorphic RBC 0 /HPF 09/[address] [place] [address] Urinalysi s UA RBC Clumps 0 /HPF 09/[address] [place] [address] Urinalysi s UA Ca Phos Crystal 0 /HPF 09/[address] [place] [address] Urinalysi s UA Yeast Budding 0 /HPF 09/[address] [place] [address] Urinalysi s UA Yeast Hyphae 0 /HPF 09/[address] [place] [address] Urinalysi s UA Oval Fat Bodies 0 /HPF 09/[address] [place] [address] Urinalysi s UA WBC Clumps 0 /HPF 09/[address] [place] [address] Urinalysi s UA Protein Negative ( 7:13 AM) 09/[address] [place] [address] Urinalysi s UA Glucose Normal ( 7:13 AM) 09/[address] [place] [address] Urinalysi s UA pH 6.5 5.0 - 7.5 09/[address] [place] [address] Urinalysi s UA Urobilinog en Normal ( 7:13 AM) 09/[address] [place] [address] Urinalysi s UA Bili Negative ( 7:13 AM) 09/[address] [place] [address] Molecular Infectiou s Disease SARS-CoV-2 PCR Negative 10 ( 1 1:11 PM) 07/31 N Interpretiv e Data: SARS-CoV-2 detection results obtained using [employer] Platform for molecular based testing. The laboratory is certified under Clinical Laboratory Improvement Program (CLIP) and [employer] of [employer] s (CAP) as qualified to perform [...] website: https://www .fda.gov/Me Meierice s/Safety/Em ergencySitu ations/ucm1 [address]91.htm [address] [place] [address] Molecular Infectiou s Disease Reason for Test? Screenin g ( 1 1:11 PM) 07/[address] [place] [address] Chemistry Troponin-T <0.010 ng/mL 0.010 - 0.029 12/13 N Interpretiv e Data: <0.010 ng/mL = Negative for myocardial damage. 0.011 - 0.029 ng/mL = Non-Diagnos tic, suggest clinical correlation . 0.030 - 0.099 ng/mL = May indicate myocardial damage. Suggest additional Troponin T testing over the next 8-16 hours as clinically indicated. Note: Troponin T results of 0.030 - 0.099, if associated with [place], should rise if re-assayed over the next [...] hours before phlebotomy to avoid interferenc e. [address] [place] [address] Hematolog y MPV 10.6 fL 6.4 - 10.3 12/[address] [place] [address] Hematolog y IPF % 1 12/[address] Hematolog y MCHC 33.1 g/dL 32.0 - 36.0 12/[address] Hematolog y Platelets 363 10^3/uL 150 - [id number] 12/[address] Hematolog y RDW CV 12.5 % 11.5 - 14.0 12/[address] Hematolog y MCV 93.3 fL 82.0 - 99.0 12/[address] Hematolog y MCH 30.9 pg 28.0 - 33.0 12/[address] Hematolog y RBC 4.5 10^6/uL 3.9 - 5.0106 12/[address] Hematolog y Hemoglobin 13.8 g/dL 12.0 - 15.3 12/[address] Hematolog y Hematocrit 41.7 % 36.0 - 46.0 12/[address] Hematolog y WBC 9.1 10^3/uL 4.0 - 10.5103 12/[address] Chemistry Calcium 9.1 mg/dL 8.9 - 10.4 12/[address] Chemistry AST 22 U/L 12 - 39 12/[address] [place] [address] Chemistry Alk Phos 75 U/L 40 - 129 12/13 N Interpretiv e Data: Increased intestinal alkaline phosphatase can be seen in blood group O and B secretors and after fatty meals. [address] [place] [address] Chemistry Albumin 4.4 g/dL 3.5 - 4.8 12/[address] [place] [address] Chemistry A/G Ratio 1.6 1.5 - 2.0 12/[address] [place] [address] Chemistry Globulin 2.7 g/dL 2.0 - 3.5 12/[address] [place] [address] Chemistry ALT 26 U/L 17 - 63 12/[address] [place] [address] Chemistry CO2 26 mmol/L 22 - 32 12/[address] [place] [address] Chemistry Chloride 103 mmol/L 98 - 107 12/[address] [place] [address] Chemistry Creatinine Level 0.8 mg/dL 0.4 - 1.0 12/[address] [place] [address] Chemistry Glucose Lvl 99 mg/dL 75 - 99 12/13 N Interpretiv e Data: Fasting=75- 99 mg/dL Impaired Fasting Glucose= 100 to 125 mg/dL Provisional Diagnosis of Diabetes= equal or greater than 126 mg/dL Non-Fasting = 75-139 mg/dL Impaired Non-Fasting Glucose= 140-199 mg/dL Provisional Diagnosis of Diabetes= equal or greater than 200 mg/dL [address] [place] [address] Chemistry Bilirubin Total <0.15 mg/dL 0.15 - 1.00 12/[address] [place] [address] Chemistry Sodium 140 mmol/L 136 - 145 12/[address] [place] [address] Chemistry BUN 16 mg/dL 6 - 20 12/[address] [place] [address] Chemistry Protein Total 7.1 g/dL 6.6 - 8.7 12/[address] [place] [address] Chemistry AGAP 11 mmol/L 6 - 16 12/[address] [place] [address] Chemistry Potassium Lvl 4.5 mmol/L 3.5 - 5.1 12/13 N Result Comment: RESULT MAY BE INACCURATE DUE TO HEMOLYSIS. PLEASE RESUBMIT IF CLINICALLY INDICATED. [address] [place] [address] Chemistry Osmo Calc 291 12/[address] [place] [address] Chemistry BUN/Creat Ratio 20.0 10.0 - 25.0 12/[address] [place] [address] Chemistry Bilirubin Direct <0.2 mg/dL 12/[address] [place] [address] Hematolog y nRBC Absolute 0.00 12/[address] [place] [address] Hematolog y nRBC % Auto 0.0 % 12/[address] [place] [address] Hematolog y Imm. Granulocyt e Absolute 0.02 10^3/uL 0.00 - 0.04280 12/[address] [place] [address] Hematolog y Basophil % Auto 0.2 % 0.0 - 4.0 12/[address] [place] [address] Hematolog y Eos Absolute 0.17 10^3/uL 0.00 - 0.53668 12/[address] [place] [address] Hematolog y Eosinophil % Auto 1.9 % 0.0 - 6.0 12/[address] [place] [address] Hematolog y [place] Absolute 0.41 10^3/uL 0.20 - 0.99031 12/[address] [place] [address] Hematolog y Imm. Granulocyt e % 0.2 % 12/[address] [place] [address] Hematolog y Baso Absolute 0.02 10^3/uL 0.00 - 0.69927 12/[address] [place] [address] Hematolog y Lymph Absolute 3.27 10^3/uL 1.00 - 4.78737 12/[address] [place] [address] Hematolog y Lymphocyte % Auto 36.1 % 15.0 - 45.0 12/[address] [place] [address] Hematolog y Neutro Absolute 5.17 10^3/uL 2.00 - 7.13023 12/[address] [place] [address] Hematolog y Neutrophil % Auto 57.1 % 40.0 - 80.0 12/[address] [place] [address] Hematolog y Monocyte % Auto 4.5 % 4.0 - 11.0 12/[address] [place] [address] Chemistry eGFR Non-AA 91 mL/min/1 .73_m2 12/13 [...] equation. The full units are mL/min/1.73 m2. [facility] cannot automatical ly adjust the calculation for [...] Pharmacy for assistance or more information . [address] [place] [address] Chemistry eGFR AA 105 mL/min/1 .73_m2 12/[address] [place] [address] Vital Signs Combined list of inpatient and outpatient Vital Signs from Department of Defense and Veterans Affairs, ranging from 12 months to all on record, depending upon the facility. Vital Sign Value Date Comments Source Peripheral Pulse Rate 98 bpm 09/16/2025 14:52:00 1201V-Oh-B-[facility] Mean Arterial Pressure, Cuff (Calc) 91 mm[Hg] 09/16/2025 14:52:00 6070K-Ca-W-[facility] Systolic Blood Pressure 119 mm[Hg] 09/16/20 25 14:52:00 5163J-Oz-B-[facility] Diastolic Blood Pressure 77 mm[Hg] 025 14:52:00 6890R-Wt-F-[facility] Blood Pressure Manual Automatic 09/16/2025 14:52:00 4624V-Ae-C-[facility] BP Site Left arm 09/16/2025 14:52:00 0257H-Ko-S-[facility] Respiratory Rate 18 br/min 09/16/2025 14:52:00 2518P-Ou-R-[facility] Peripheral Pulse Rate 62 bpm 07/05/2023 15:42:00 7581M-Tb-Q-[facility] Mean Arterial Pressure, Cuff (Calc) 85 mm[Hg] 07/05/2023 15:42:00 0561A-Dc-E-[facility] Blood Pressure Manual Automatic 07/05/2023 15:42:00 4267V-Xz-U-[facility] Respiratory Rate 16 br/min 07/05/2023 15:42:00 3859C-Jn-N-[facility] Systolic Blood Pressure 112 mm[Hg] 07/05/20 23 15:42:00 4992H-Xj-E-[facility] Diastolic Blood Pressure 72 mm[Hg] 023 15:42:00 7780N-Fo-S-[facility] BP Site Left arm 07/05/2023 15:42:00 5396V-Ls-C-[facility] Blood Pressure Manual Automatic 09/22/2024 16:35:00 2820Y-Ay-E-[facility] Mean Arterial Pressure, Cuff (Calc) 104 mm[Hg] 09/22/2024 16:35:00 1263P-We-N-[facility] Peripheral Pulse Rate 99 bpm 09/22/2024 16:35:00 4307P-Dw-V-[facility] BP Site Left arm 09/22/2024 16:35:00 5394J-Ql-T-[facility] Systolic Blood Pressure 137 mm[Hg] 09/22/20 24 16:35:00 0425X-Ey-O-[facility] Diastolic Blood Pressure 87 mm[Hg] 024 16:35:00 2576D-Fv-N-[facility] BP Site Left arm 09/18/2023 16:06:00 2677M-Pe-R-[facility] Temperature Oral 36.7 Sherrell 09/18/2023 16:06:00 8464U-Ws-G-[facility] Respiratory Rate 16 br/min 09/18/2023 16:06:00 6973X-Mv-H-[facility] Blood Pressure Manual Automatic 09/18/2023 16:06:00 6786F-Zm-F-[facility] Mean Arterial Pressure, Cuff (Calc) 92 mm[Hg] 09/18/2023 16:06:00 8584D-Mm-E-[facility] Systolic Blood Pressure 117 mm[Hg] 09/18/20 23 16:06:00 6152O-Oz-I-[facility] Diastolic Blood Pressure 80 mm[Hg] 023 16:06:00 0812G-Rx-S-[facility] Peripheral Pulse Rate 99 bpm 09/18/2023 16:06:00 8147P-Mo-X-[facility] Peripheral Pulse Rate 70 bpm 06/11/2025 19:00:00 5408Q-Qm-T-[facility] Mean Arterial Pressure, Cuff (Calc) 87 mm[Hg] 06/11/2025 19:00:00 3360N-Yh-R-[facility] Respiratory Rate 18 br/min 06/11/2025 19:00:00 7291P-Mk-B-[facility] Blood Pressure Manual Automatic 06/11/2025 19:00:00 3619K-Iw-U-[facility] BP Site Left arm 06/11/2025 19:00:00 5105S-Wl-C-[facility] Systolic Blood Pressure 105 mm[Hg] 06/11/20 25 19:00:00 1739G-Oe-R-[facility] Diastolic Blood Pressure 78 mm[Hg] 025 19:00:00 1218B-La-S-[facility] Temperature Oral 36.4 Sherrell [facility] 135 mm[Hg] 09/04/20 21 14:52:[address] [place] [address] Diastolic Blood Pressure 85 mm[Hg] 021 14:52:[address] [place] [address] Peripheral Pulse Rate 95 bpm 09/04/2021 14:52:[address] [place] [address] Respiratory Rate 16 br/min 09/04/2021 [facility]:52[facility] BP Site Left arm 03/17/2024 19:14:00 7678E-Xv-O-[facility] Systolic Blood Pressure 131 mm[Hg] 03/17/20 24 19:14:00 2747E-Uh-R-[facility] Diastolic Blood Pressure 83 mm[Hg] 024 19:14:00 5287J-Pq-V-[facility] Mean Arterial Pressure, Cuff (Calc) 99 mm[Hg] 03/17/2024 19:14:00 5855U-Xm-G-[facility] Peripheral Pulse Rate 90 bpm 03/17/2024 19:14:00 7883H-Cs-B-[facility] Temperature Oral 36.8 Sherrell 12/12/2020 23:13[facility] Systolic Blood Pressure 136 mm[Hg] 12/13/19 21 23:13[facility] Diastolic Blood Pressure 75 mm[Hg] 021 23:13[facility] Peripheral Pulse Rate 80 bpm 12/12/2020 23:13:00 0029A-[facility] Respiratory Rate 16 br/min 12/12/2020 23:13:00 002-[facility] Encounters Combined list of: 1) Encounters from Department of Veterans Affairs facilities going backup to the last 18 months, not all VA inpatient encounters are included; 2) Encounters from the Department of Defense facilities going backup to 280 months. Location Location Details Encounter Type Encounter Number Reason For Visit Attending Provider ADM Date DC Date Status Disposition Source [facility](Health [facility]) OUTPATIENT [id number] [facility] RECORD ASSESSM ENT AND TRANSCR AARON ISABEL 10/17 Released w/o Limitations [facility]( [facility]) [facility]( [facility]) OUTPATIENT [id number] Initial Appt IDONTE GONZALEZ 05/27 Released w/o Limitations [facility]( Blue) [facility]( White) OUTPATIENT [id number] Notes Entered by: ESTRELLITA WADDELL 28 May 2017 0926 ------- ------- ------- ------- -- SÁNCHEZ HERRERA 05/28 Released w/o Limitations [facility]( [facility]) [facility] OUTPATIENT [id number] transfe r in NATHAN [id number] [facility] PARDO 06/06 Released w/o Limitations [facility]( [facility]) [facility] OUTPATIENT [id number] Notes Entered by: ELIA LEON 07 Jun 2017 1104 ------- ------- ------- ------- -- RUDDY Oneal 06/07 Released w/o Limitations [facility]( [facility]) [facility] [id number] JEF Acuna 06/18 Released w/o Limitations [facility]( [facility]) [facility] OUTPATIENT [id number] NOB Transfe r in at 28weeks ZACHARIAH BASHIR 06/21 Released w/o Limitations [facility]( [facility]) [facility] OUTPATIENT [id number] jann NATHAN [id number] ZACHARIAH BASHIR 07/22 Released w/o Limitations [facility]( [facility]) [facility]) TELE CONSULT [id number] Notes Entered by: Yoly BASHIR 23 Jul 2017 1614 ------- ------- ------- ------- -- ICP ZACHARIAH BASHIR 07/23 [facility]( [facility]) [facility](Oh ternal Medicine) OUTPATIENT [id number] CHOLEST ASIS,AM A;OB:FRANK WEBERWKL Y APT;23N OV17:35 +1 ELLE BELL 07/26 Released w/o Limitations [facility]( Materna l Medicin e) [facility](Ma ternal Medicine) OUTPATIENT [id number] CHOLEST ASIS;AM A;OB:FRANK MORA;BI- WKLY APT;23N OV17:35 +4 ELLE BELL 07/29 Released w/o Limitations [facility]( [facility] Medicin [facility]) [facility] OUTPATIENT [id number] JANN NATHAN [id number] dx w cholest asis per MARK RAMOS 07/29 Released w/o Limitations [facility]( [facility]) [facility] OUTPATIENT [id number] Notes Entered by: Dion VALENZUELA 29 Jul 2017 1156 ------- ------- ------- ------- -- Immuniz SHERRON Vega 07/29 Released w/o Limitations [facility]( [facility]) [facility](Oh [facility]al Medicine) OUTPATIENT [id number] CHOLEST ASIS;AM A;OB:FRANK MORA;BI- WKLY APT; OV17:36 +1 ELLE BELL 08/02 Released w/o Limitations [facility]( Materna l Medicin e) [facility](Oh ternal Medicine) OUTPATIENT [id number] CHOLEST ASIS;AM A;BI-WK LY;OB:An KHANNA;:3 6+4 ELLE BELL 08/05 Released w/o Limitations [facility]( Materna l Medicin e) [facility] DIRECT TO [facility] MTF FROM OTHER THAN ER OR [facility] [id number] DENNIS KATHY MARGARETH 08/08 DISCHARGED HOME [facility] OUTPATIENT [id number] PP [id number] no control needed NILSA DANIELS 09/24 Released w/o Limitations [facility]( [facility]) [facility]( [facility]) OUTPATIENT [id number] well woman/f .u SAVANNAH BATRES 10/18 Released w/o Limitations [facility]( [facility]) [facility]( [facility]) TELE CONSULT [id number] Notes Entered by: Spike GREEN 05 Nov 2017 1528 ------- ------- ------- ------- -- CALL BACK NIRAJ ALLEN 11/05 Referred for Appointment [facility]( [facility]) [facility] OUTPATIENT [id number] med change does not like Denice HASSANCLIVE SAVANNAH GONZALEZCY 11/14 Released w/o Limitations [facility]( [facility]) [facility] OUTPATIENT [id number] med refill FAYE NUÑEZ 01/07 Released w/o Limitations [facility]( [facility] OUTPATIENT [id number] well woman (pap) NADINE PANTOJA 02/21 Released w/o Limitations [facility]( [facility]) [facility] TELE CONSULT [id number] Notes Entered by: Ever GRANADOS 04 Apr 2018 1100 ------- ------- ------- ------- -- Medicat ion Refill/ NIRAJ Guerrero 04/04 Referred for Appointment [facility]( [facility]) [facility] TELE CONSULT [id number] Notes Entered by: KARIME PETE 09 Apr 2018 1029 ------- ------- ------- ------- -- Lab results NADINE PANTOJA 04/09 [facility]( [facility]) [facility] OUTPATIENT [id number] med refill/ adderra ll FAYE NUÑEZ 04/28 Released w/o Limitations [facility]( [facility]) [facility] TELE CONSULT [id number] Notes Entered by: FAYE WEAVER 29 Apr 2018 1359 ------- ------- ------- ------- -- Follow- up appoint NIRAJ Doll 04/29 Referred for Appointment [facility]( [facility]) [facility] TELE CONSULT [id number] Notes Entered by: ROMEO SWAIN 09 May 2018 1130 ------- ------- ------- ------- -- Call Back NIRAJ ALLEN 05/09 Referred for Appointment [facility]( [facility]) [facility] TELE CONSULT [id number] Notes Entered by: BRANDY ALLEN 12 May 2018 1321 ------- ------- ------- ------- -- Medicat ion NIRAJ ALLEN 05/12 Referred for Appointment [facility]( [facility]) [facility] OUTPATIENT [id number] well women/p NADINE Minor 05/27 Released w/o Limitations [facility]( [facility]) [facility] TELE CONSULT [id number] Notes Entered by: JAGUAR HELMS 16 Sep 2018 1335 ------- ------- ------- ------- -- Informa tiJAGUAR Sommer 09/16 Referred for Appointment [facility]( [facility]) [facility] OUTPATIENT [id number] 9 f/u with medicat ion LOWELL RIOS 09/17 Released w/o Limitations [facility]( [facility]) [facility] OUTPATIENT [id number] 2 Blood pressur e follow- up LOWELL RIOS 09/22 Released w/o Limitations [facility]( [facility] [id number] Notes Entered by: EDWIN ALLEN 23 Sep 201848 ------- ------- ------- ------- -- JOSE Zacarias 09/23 Released w/o Limitations [facility]( Immuniz ations- Core Facilit y) [facility]( [facility]) OUTPATIENT [id number] oversea s LOWELL Carrion 12/29 Released w/o Limitations [facility]( [facility]) [facility] OUTPATIENT [id number] 2 refill/ bp check LOWELL RIOS 02/24 Released w/o Limitations [facility]( [facility]) [facility]( [facility]) TELE CONSULT [id number] Notes Entered by: ESTRELLITA WADDELL 25 Feb [id number] ------- ------- ------- ------- -- RELAY HEALTH MESSAGE /MED QUESTJADEN HICKS 02/25 Referred for Appointment [facility]( [facility]) [facility] OUTPATIENT [id number] MED REFILL KEL CASTILLO 05/27 Released w/o Limitations [facility]( [facility]) 6130C-Af- C-[facility] Between Visit [id number] 09/14 Discharge Disposition: Home or Self Care 6130C-A f-C-[facility] 6130C-Af- C-[facility] [id number] Attenti on-defi cit hyperac tivity jarocho rincon type NAUN VALDERRAMA 09/16 Discharge Disposition: Home or Self Care 6130C-A f-C-[facility] 6130C-Af- C-[facility]annette Between Visit [id number] 09/20 Discharge Disposition: Home or Self Care 6130C-A f-C-[facility] 6130C-Af- C-375Th [facility]annette Between Visit [id number] 09/21 Discharge Disposition: Home or Self Care 6130C-A f-C-[facility] 0055C-375 th MEDGRP-Sc jeannette Care Not Rendered [id number] ESTEBAN AWAD 09/24 Discharge Disposition: ADMIN 0055C-[address] [facility] [facility] Procedures Combined list of: 1) Procedures from Department of Veterans Affairs facilities going back up to thelast 18 months, not all [place] non-surgical procedures are included; 2) All procedures from the Department of Defense facilities. Procedure Procedure Type Code Date Perfomer Comments Sourc e URINALYSIS, BY DIP STICK OR TABLET REAGENT [...] AMNIOTIC FLUID VOLUME), 1 OR MORE FETUSES 017 DoD SUBSEQ CARE VISIT () [EXCLS:PATIENTS WHO ARE SEEN FOR A CONDITION UNREL TO /PRENATA L CARE (EG,AN UP RESPIR INFECT;PATIENTS SEEN FOR CONSULTATION ONLY,NOT FOR CONT CARE)] [facility] THERAPEUTIC, PROPHYLACTIC, OR DIAGNOSTIC INJECTION (SPECIFY SUBSTANCE OR DRUG); SUBCUTANEOUS OR INTRAMUSCULAR [facility] SUBSEQ CARE VISIT () [EXCLS:PATIENTS WHO ARE SEEN FOR A CONDITION UNREL TO /PRENATA L CARE (EG,AN UP RESPIR INFECT;PATIENTS SEEN FOR CONSULTATION ONLY,NOT FOR CONT CARE)] [facility] SUBSEQ CARE VISIT () [EXCLS:PATIENTS WHO ARE SEEN FOR A CONDITION UNREL TO /PRENATA L CARE (EG,AN UP RESPIR INFECT;PATIENTS SEEN FOR CONSULTATION ONLY,NOT FOR CONT CARE)] [facility] SUBSEQ CARE VISIT () [EXCLS:PATIENTS WHO ARE SEEN FOR A CONDITION UNREL TO /PRENATA L CARE (EG,AN UP RESPIR INFECT;PATIENTS SEEN FOR CONSULTATION ONLY,NOT FOR CONT CARE)] [facility] INITIAL CARE VISIT (REPORT AT 1ST ENCOUN W [facility] PROVIDING OBSTETRIC CARE. REPORT ALSO DATE OF VISIT &,IN A SEPARATE FIELD,THE DATE OF THE LAST MENSTRUAL PERIOD) [facility] CHILDBIRTH PREPARATION/LAMAZ E CLASSES, NON-PHYSICIAN PROVIDER, PER SESSION [facility] IMMUNIZATION ADMINISTRATION (INCLUDES PERCUTANEOUS, INTRADERMAL, SUBCUTANEOUS, OR INTRAMUSCULAR INJECTIONS); 1 VACCINE (SINGLE OR COMBINATION VACCINE/TOXOID) [facility] PATIENT EDUCATION, NOT OTHERWISE CLASSIFIED, NON-PHYSICIAN PROVIDER, INDIVIDUAL, PER SESSION [facility] Influenza Split Virus Vaccine IM Preserv Free 0.5mL Dosage Quadrivalent Influenza Split Virus Vaccine IM Preserv Free 0.5mL Dosage Quadrivalent 39302 EDWIN ALLEN Influenza, Inj., quad., preservative free; Series #: 1; .5 mL; IM; Left Arm; Mf: menuvox; Lot: [id number]. DoD Immunization Administration By Injection, One Vaccine Immunization Administration By Injection, One Vaccine 52707 EDWIN ALLEN [facility] Obstetrical Services Care Visit Obstetrical Services Care Visit 0503F NILSA DANIELS [facility] Ultrasound Obstetric Limited Evaluation Ultrasound Obstetric Limited Evaluation 23632 DAO BELLN CATHY [facility] OB Services Antepartum Care Only Subsequent Single Visit OB Services Antepartum Care Only Subsequent Single Visit 0502F RAYDAON CATHY DoD Non-Stre Test (___ 0,2) Non-Stress Test (___ 0,2) 04324 RAY ELLEMoe Winn OB Services Antepartum Care Only Subsequent Single Visit OB Services Antepartum Care Only Subsequent Single Visit 0502 RAYDAO MATUTEN CATHY DoD Ultrasound Obstetric Limited Evaluation Ultrasound Obstetric Limited Evaluation 51425 RAY ELLE Winn Non-Stre Test (___ 0,2) Non-Stress Test (___ 0,2) 94884 RAYDAON CATHY DoD OB Services Antepartum Care Only Subsequent Single Visit OB Services Antepartum Care Only Subsequent Single Visit 050 ELLE BELL Non-Stre Test (___ 0,2) Non-Stress Test (___ 0,2) 83974 ELLE BELL Physician Supervised Injection Intramuscular Physician Supervised Injection Intramuscular 00620 SHERRON VALENZUELA Influenza Split Virus Vaccine IM Preserv Free 0.5mL Dosage Quadrivalent Influenza Split Virus Vaccine IM Preserv Free 0.5mL Dosage Quadrivalent 83480 SHERRON VALENZUELA Influenza Seasonal, injectable quadrivalent - preservative free; Series #: 1; .5 mL; IM; Left Arm; [facility]: menuvox; Lot: [id number]; VIS given (Leia: 05/13/2015). [facility] Immunization Administration By Injection, One Vaccine Immunization Administration By Injection, One Vaccine 50301 SHERRON VALENZUELA OB Services Antepartum Care Only Subsequent Single Visit OB Services Antepartum Care Only Subsequent Single Visit 0502F RAYDAOMoe Winn Ultrasound Obstetric Limited Evaluation Ultrasound Obstetric Limited Evaluation 91153 ELLE BELL Non-Stre Test (___ 0,2) Non-Stress Test (___ 0,2) 45653 017 ELLE BELL [facility] OB Services Antepartum Care Only Subsequent Single Visit OB Services Antepartum Care Only Subsequent Single Visit 0502F 017 ZACHARIAH BASHIR [facility] OB Services Antepartum Care Only First Visit, With Report OB Services Antepartum Care Only First Visit, With Report 0500F ZACHARIAH BASHIR [facility] Childbirth preparation/Lamaz e cla es, non-physician provider, per se ion Childbirth preparation/Lamaz e classes, non-physician provider, per session S9436 JEF HULL [facility] Tdap Vaccine Tdap Vaccine 18530 017 RUDDY LEON Tdap; Series #: 1; .5 mL; IM; Left Arm; Mfg: menuvox; Lot: [id number]; VIS given (Liea: 11/30/14). DoD Immunization Administration By Injection, One Vaccine Immunization Administration By Injection, One Vaccine 81883 017 RUDDY LEON [facility] Patient education, not otherwise cla ified, non-physician provider, individual, per se ion Patient education, not otherwise classified, non-physician provider, individual, per session S9445 017 OMERO PARDO [facility] No data available for this section Ambulato ry Pharmacy Social History Combined list of available smoking, tobacco, and other social history from Department of Defense and Veterans Affairs facilities. Social History Type Response Date Comment Sour e Sex Representation 07/06/2020 Unknow n Organization This section is an empty social history section. [facility] Tobacco Former-cigarette user Cigarette use:. Never-other tobacco user (not cigarettes) Other Tobacco use:. Ambulatory Pharmacy Sexual Orientation Ambula tory Pharmacy Gender identity Ambulator y Pharmacy Assessment and Plan Combined list of future care activities from Department of Defense and Veterans Affairs facilities (e.g., assessment and plan notes, appointments, orders, and referrals). Additional future care activities may be listed in the Plan of Care section. Result Assessment and Plan Date Source Assessment and Plan Extracted from:Title : [facility] [place] Author: CHRISTY SMITH MD Date: 09/21/25 [...] ago including vasomotor symptoms. [place] [facility] clinic and has been taking progesterone [...] symptoms but offered her a referral to [facility] for management if she desires. Patient would like referral so I placed that for her. Ordered: Referral Request 2.0 - DoD Capt Christy Smith DO Family Medicine Faculty Physician [address] [place] [address], [facility] Adolph PINOT Extracted from:Title: FM: ADHD Author: AMADOU PRESTON [...] 90 tab(s), 0 total refill(s), Maintenance, Pharmacy: [facility] dextroamphetamine-amphetamine( dextroamphetamine-amphetamine 30 mg oral tablet), 1 tab(s), Oral, Daily, Daily at 10 AM, # 90 tab(s), 0 total refill(s), Maintenance, Pharmacy: [facility] Capt Claudia (), [facility] Ground Nuclear Weapons Assembly Officer, PGY-3 [facility] [place] [place] This note was dictated using Hitmeister dictation software. While it was proofread for errors, there may still be grammatical and dictation errors. Addendum by ANGELA STAPLES MD on September 16, 2025 13:45:51 PAPER COATING SUPERVISOR On the day of encounter, I was [...] further evaluation of weight. MD Sly LEUNG, [facility], Family Medicine Faculty Physician [address] [place], [place] [address]Adolph [facility] Family Medicine Residency Program Future Appointments [id number] Appt. Date: 09/21/2025 8:00 AM Scheduled Provider: [...] low. -Discussed patient's case with Dr. Box, OB-SANTA'S HELPER, who recommended repeating labs including TSH, FSH, CBC, CMP, vitamin D and waiting for these labs to return befor starting on a estrogen/progesterone combo patch - Message sent to patient who confirmed she had access to patient portal prior to leaving the office. Ordered: CBC w/ Diff Comprehensive Metabolic Panel FSH and LH [id number] TSH w/ Reflex FT4 and Total T3 2. Obesity, class 3 Patient has been on zepbound she has been paying [id number] for from [facility] clinic. She [...] [facility] [Not filled] Capt Yadiel Caldera), [facility], Ground Nuclear Weapons Assembly Officer, PGY-3 [employer], [facility] Adolph [facility] This note was dictated using Hitmeister dictation software. While it was proofread for errors, there may still be grammatical and dictation errors. Addendum by DELIO NGUYỄN on June 11, 2025 17:28:40 CDT On the date of this encounter, I was immediately available to assist the resident in the care of the patient. The resident discussed the diagnosis and treatment plan for this patient with me [id number]. I have reviewed and agree with the resident s findings and plan of care with the following exceptions: None. All labs/imaging/consults are to be followed by the ordering provider. Delio Nguyễn MD [facility], [facility], Family Medicine Physician [id number] [facility] Adolph ACHARYA Family Medicine Residency Shell Plater Physician Extracted from:Title: [facility] [place] - ADHD f/u Author: LUPIS BRIONES [...] 90 tab(s), 0 total refill(s), Maintenance, Pharmacy: [facility] [Not filled] dextroamphetamine-amphetamine( dextroamphetamine-amphetamine 30 mg oral tablet), 1 tab(s), Oral, Daily, Daily at 10 AM, # 90 tab(s), 0 total refill(s), Maintenance, Pharmacy: [facility] [Not filled] Lupis Briones MD, SHANNON, MPH PGY-3, Family Medicine [place], [place] Addendum by SHYANNE SAUCEDO MD on [...] by the ordering provider. Shyanne Saucedo MD, [facility] Family Medicine and Obstetrics Faculty Physician [address] [place] [address], [facility] O [place], [place] Extracted from:Title: [facility] [place] Virt Author: ANGEL HUNTLEY MD Date: 12/14/24 1. Attention-deficit hyperactivity disorder, combined type Chronic, controlled. Takes 30mg at 10am, 20mg at 6am, and 10mg in pm. Resent 30mg to [facility], erroneously sent to [facility]. - Cont. adderall - F/u in 3 months for med as well as [facility] Orders: dextroamphetamine-amphetamine( dextroamphetamine-amphetamine 30 mg oral tablet), See Instructions, 1 tab(s) Oral take at 6am daily, # 30 cap(s), 0 total refill(s), Maintenance, Pharmacy: [facility] #[id number] [External Rx] Capt Angel Huntley MD Ground Nuclear Weapons Assembly Officer, PGY-[address] [place] [address], [place], [place] Addendum by RAMU FLORES MD, Family [...] ordering provider. Ramu Flores MD Extracted from:Title: [facility] [place] Virt Author: ANGEL HUNTLEY MD Date: 12/11/24 1. Attention-deficit hyperactivity disorder, combined type Chronic, controlled. No c/o medication s/e or non-adherence. PDMP aware reviewed and appropriate. No concern for medication abuse. Recommendations: - Refill adderall 20mg q6am daily, 30mg q10am daily, and 10mg qpm daily. 30 day supply at [facility], 60 day supply at [facility] to start 30 days after initial script [...] 60 tab(s), 0 total refill(s), Maintenance, Pharmacy: [facility] [Not filled] dextroamphetamine-amphetamine( dextroamphetamine-amphetamine 20 mg oral tablet), 1 tab(s), Oral, Daily, Daily at 6 AM, # 60 tab(s), 0 total refill(s), Maintenance, Pharmacy: [facility] [Not filled] dextroamphetamine-amphetamine( dextroamphetamine-amphetamine 30 mg oral tablet), 1 tab(s), Oral, Daily, Daily at 10 AM, # 60 tab(s), 0 total refill(s), Maintenance, Pharmacy: [facility] [Not filled] 2. Hormone replacement monitoring status Acute, uncontrolled. Started progesterone, testosterone, and semaglutide at [facility] for energy, libido, and weight loss. Patient will upload labwork from [facility]. - Follow-up labs from [facility] with patient - If not received within [...] 30 cap(s), 0 total refill(s), Maintenance, Pharmacy: [facility] #[id number] [External Rx] dextroamphetamine-amphetamine( dextroamphetamine-amphetamine 20 mg oral tablet), See Instructions, 1 tab(s) Oral take at 10am daily, # 30 cap(s), 0 total refill(s), Maintenance, Pharmacy: [facility] #[id number] [External Rx] dextroamphetamine-amphetamine( dextroamphetamine-amphetamine 30 mg oral tablet), See Instructions, 1 tab(s) Oral take at 6am daily, # 30 cap(s), 0 total refill(s), Maintenance, Pharmacy: [facility] [Not filled] Capt Angel Huntley MD Ground Nuclear Weapons Assembly Officer, PGY-[address] [place] [address], [place], [place] Addendum by ELIANA JEFFERSON DO on December 14, 2024 10:16:29 CDT On the date of this encounter, I was available for consultation and discussed the case with the resident face to face. I agree with the documentation above, with the following addendum: NONE. All labs/rads are the responsibility of the ordering provider. //SIGNED// Maj Eliana Jefferson-DO Joe, CAQSM Sports/Family Medicine Faculty Physician [address] [place] [address], [facility] [place] Extracted from:Title: [facility] [place]ADHDRx_Off ice Clinic Note Author: DEEPA AMES DO [...] use for more than 3 days., Pharmacy: [facility] amoxicillin-clavulanate(Augmen tin 875 mg-125 mg oral tablet), 1 tab(s), Oral, every 12 hr, X 7 days, # 14 tab(s), 0 total refill(s), Acute, 09/29/2024, 1 tab(s) Oral every 12 hr,x7 days, Pharmacy: [facility], Respiratory, sinusitis fluticasone nasal(Flonase Allergy Relief 50 mcg/inh nasal spray), 1 spray(s), Inhale, Daily, # 16 g, 0 total refill(s), Maintenance, 1 spray(s) Inhale Daily, Pharmacy: [facility] fluconazole(fluconazole 150 mg oral tablet), 1 tab(s), Oral, As Directed, X 1 days, # 1 tab(s), 0 total refill(s), Acute, 09/23/2024, 1 tab(s) Oral As Directed,x1 days, Pharmacy: [facility], Fungal, prophylaxis 2. Attention-deficit hyperactivity disorder, [...] tab(s) Oral Daily,Instr:Daily in the afternoon, Pharmacy: [facility] [Not filled] dextroamphetamine-amphetamine( dextroamphetamine-amphetamine 20 mg oral tablet), 1 tab(s), Oral, Daily, Daily at 6 AM, # 90 tab(s), 0 total refill(s), Maintenance, 1 tab(s) Oral Daily,Instr:Daily at 6 AM, Pharmacy: [facility] [Not filled] dextroamphetamine-amphetamine( dextroamphetamine-amphetamine 30 mg oral tablet), 1 tab(s), Oral, Daily, Daily at 10 AM, # 90 tab(s), 0 total refill(s), Maintenance, 1 tab(s) Oral Daily,Instr:Daily at 10 AM, Pharmacy: [facility] [Not filled] Capt PATSY (), [facility] Ground Nuclear Weapons Assembly Officer Physician, PGY-[address] [place] [address] [facility] Family Medicine Residency Program [address] [facility], [address] [address] Addendum by KONRAD CLEMENS DO on September 23, 2024 10:19:24 PAPER COATING SUPERVISOR I certify that I was present for case discussion in the Family Medicine preceptor room at the time of this encounter. I have reviewed the note and agree with the findings, assessment, and plan except as I have documented below. Follow up as listed. All labs/imaging/consults to be followed by the ordering provider. Maj Praveena, [facility], Staff Physician Extracted from:Title: [facility] [place] Author: CHRISTY SMITH MD [...] tab(s) Oral Daily,Instr:Daily in the afternoon, Pharmacy: [facility] [Not filled] dextroamphetamine-amphetamine( dextroamphetamine-amphetamine 20 mg oral tablet), 1 tab(s), Oral, Daily, Daily at 6 AM, # 90 tab(s), 0 total refill(s), Maintenance, 1 tab(s) Oral Daily,Instr:Daily at 6 AM, Pharmacy: [facility] [Not filled] dextroamphetamine-amphetamine( dextroamphetamine-amphetamine 30 mg oral tablet), 1 tab(s), Oral, Daily, Daily at 10 AM, # 90 tab(s), 0 total refill(s), Maintenance, 1 tab(s) Oral Daily,Instr:Daily at 10 AM, Pharmacy: [facility] [Not filled] Obesity, unspecified Chronic, [...] # 360 tab(s), 0 total refill(s), Maintenance, CaseId:[id number];Take 2 tablets twice daily (max dose 4 tablets/day), Take 2 tablets twice daily (max dose 4 tablets/day), Pharmacy: DO... Basic Metabolic Panel Hemoglobin A1c Lipid Panel Thyroid Stimulating Hormone Capt Christy Smith DO Family Medicine Faculty Physician [facility], [facility] Adolph PINTO Extracted from:Title: [facility] [place], weight loss Author: CHRISTY SMITH MD [...] Due for routine screening - [place] [facility] [place] [place] Ordered: Referral Request 2.0 - [...] Thyroid Stimulating Hormone Referral Request 2.0 - [facility] Orders: dextroamphetamine-amphetamine( dextroamphetamine-amphetamine 10 mg oral tablet), [...] Christy Smith DO Family Medicine Faculty Physician [facility] Medical [facility], [facility] Ad[place] Extracted from:Title: Office Clinic Note [...] AM Scheduled Provider: CHRISTY SMITH MD Location: [address] [place] [address] Appointment Type: PC FTR Future Scheduled TestsLaboratoryTSH w/ Reflex FT4 and Total T3 06/11/25FSH and LH [id number] 06/11/25CBC w/ Diff 06/11/25Comprehensive Metabolic Panel 06/11/25 10/01/2025 [id number] Assessment and Plan Extracted from:Title : [facility] [place] Author: CHRISTY SMITH MD Date: 09/21/25 [...] ago including vasomotor symptoms. [place] [facility] and has been taking [...] symptoms but offered [facility] a [facility] if she desires. Patient would like referral so I placed that for her. Ordered: Referral Request 2.0 - Tatum Smith DO Family Medicine Faculty Physician [address] [place] [address], [facility] Ad[facility] Extracted from:Title: FM: ADHD Author: [...] Pharmacy: [facility] Capt Claudia (), [facility] Ground Nuclear Weapons Assembly Officer, PGY-3 [facility] /[facility] [place] This note was dictated using Hitmeister dictation software. While it was proofread for errors, there may still be grammatical and dictation errors. Addendum by ANGELA STAPLES MD on September 16, 2025 13:45:51 PAPER COATING SUPERVISOR On the day of encounter, I was [...] further evaluation of weight. MD Sly LEUNG, [facility] Family Medicine Faculty Physician [facility], Adolph PINTO [facility] Family Medicine Residency Program Future Appointments [id number] Appt. Date: 09/21/2025 8:00 AM Scheduled Provider: Christy Smiht MD Phone: -- Fax: -- Extracted from:Title: FM - multiple complaints Author: GLORIA RUIZ DO Date: 06/11/25 1. Unspecified menopausal and perimenopausal disorder Patient reporting perimenopausal symptoms. She notes she has been getting progesterone and testosterone supplementation from a women's health clinic. Her estradiol levels were within normal limits however her progesterone and testosterone were significantly low. -Discussed patient's case with Dr. Box, OB-SANTA'S HELPER, who recommended repeating labs including TSH, FSH, CBC, CMP, vitamin D and waiting for these labs to return befor starting on a estrogen/progesterone combo patch - Message sent to patient who confirmed she had access to patient portal prior to leaving the office. Ordered: CBC w/ Diff Comprehensive Metabolic Panel FSH and LH [id number] TSH w/ Reflex FT4 and Total T3 2. Obesity, class 3 Patient has been on zepbound she has been paying [id number] for from the women's health clinic. She [...] [facility] [Not filled] Capt Werner (), [facility] Ground Nuclear Weapons Assembly Officer, PGY-3 [facility], [facility]JOHANN [facility] This note was dictated using Hitmeister dictation software. While it was proofread for errors, there may still be grammatical and dictation errors. Addendum by DELIO NGUYỄN on June 11, 2025 17:28:40 CDT On the date of this encounter, I was immediately available to assist the resident in the care of the patient. The resident discussed the diagnosis and treatment plan for this patient with me [id number]. I have reviewed and agree with the resident s findings and plan of care with the following exceptions: None. All labs/imaging/consults are to be followed by the ordering provider. Delio Nguyễn MD [facility], [facility], Family Medicine Physician [id number]/SGN 375 [facility] Ad[facility] Family Medicine Residency Shell Plater Physician Extracted from:Title: [facility] [place] - ADHD f/u Author: LUPIS BRIONES [...] Briones MD, SHANNON, MPH PGY-3, Family Medicine [facility], [facility], [place], [place] Addendum by SHYANNE SAUCEDO MD on March [...] by the ordering provider. Shyanne Saucedo MD, [facility], [facility] Family Medicine and Obstetrics Faculty Physician [address] [place] [address], [facility], [place] Extracted from:Title: [facility] [place] Virt Author: ANGEL HUNTLEY MD Date: 12/14/24 1. Attention-deficit hyperactivity disorder, combined type Chronic, controlled. Takes 30mg at 10am, 20mg at 6am, and 10mg in pm. Resent 30mg to [facility], erroneously sent to [facility]. - Cont. adderall - F/u in 3 months for med as well [facility] Orders: dextroamphetamine-amphetamine( dextroamphetamine-amphetamine 30 mg oral tablet), See Instructions, 1 tab(s) Oral take at 6am daily, # 30 cap(s), 0 total refill(s), Maintenance, Pharmacy: [facility] #[id number] [External Rx] Capt Angel Huntley MD Ground Nuclear Weapons Assembly Officer, PGY-[address] [place] [address], [place], [place] Addendum by RAMU FLORES MD, Family [...] ordering provider. Ramu Flores MD Extracted from:Title: [facility] [place] Virt Author: ANGEL HUNTLEY MD Date: 12/11/24 1. Attention-deficit hyperactivity disorder, combined type Chronic, controlled. No c/o medication s/e or non-adherence. PDMP aware reviewed and appropriate. No concern for medication abuse. Recommendations: - Refill adderall 20mg q6am daily, 30mg q10am daily, and 10mg qpm daily. 30 day supply at [facility], 60 day supply at [facility] to start 30 days after initial script [...] 60 tab(s), 0 total refill(s), Maintenance, Pharmacy: [facility] [Not filled] dextroamphetamine-amphetamine( dextroamphetamine-amphetamine 20 mg oral tablet), 1 tab(s), Oral, Daily, Daily at 6 AM, # 60 tab(s), 0 total refill(s), Maintenance, Pharmacy: [facility] [Not filled] dextroamphetamine-amphetamine( dextroamphetamine-amphetamine 30 mg oral tablet), 1 tab(s), Oral, Daily, Daily at 10 AM, # 60 tab(s), 0 total refill(s), Maintenance, Pharmacy: [facility] [Not filled] 2. Hormone replacement monitoring status Acute, uncontrolled. Started progesterone, testosterone, and semaglutide at [facility] for energy, libido, and weight loss. Patient will upload labwork from [facility]. - Follow-up labs from [facility] with patient - If not received within [...] 30 cap(s), 0 total refill(s), Maintenance, Pharmacy: [facility] #[id number] [External Rx] dextroamphetamine-amphetamine( dextroamphetamine-amphetamine 20 mg oral tablet), See Instructions, 1 tab(s) Oral take at 10am daily, # 30 cap(s), 0 total refill(s), Maintenance, Pharmacy: [facility] #[id number] [External Rx] dextroamphetamine-amphetamine( dextroamphetamine-amphetamine 30 mg oral tablet), See Instructions, 1 tab(s) Oral take at 6am daily, # 30 cap(s), 0 total refill(s), Maintenance, Pharmacy: [facility] [Not filled] Capt Angel Huntley MD Ground Nuclear Weapons Assembly Officer, PGY-[address] [place] [address], [facility] JEAN CARLOS Brito Addendum by ELIANA JEFFERSON [...] Jefferson-DO Joe, CAQSM Sports/Family Medicine Faculty Physician [address] [place] [address], [facility] JEAN CARLOS Brito Extracted from:Title: [facility] [place]ADHDRx_Off ice Clinic Note Author: DEEPA AMES DO [...] use for more than 3 days., Pharmacy: [facility] amoxicillin-clavulanate(Augmen tin 875 mg-125 mg oral tablet), 1 tab(s), Oral, every 12 hr, X 7 days, # 14 tab(s), 0 total refill(s), Acute, 09/29/2024, 1 tab(s) Oral every 12 hr,x7 days, Pharmacy: [facility], Respiratory, sinusitis fluticasone nasal(Flonase Allergy Relief 50 mcg/inh nasal spray), 1 spray(s), Inhale, Daily, # 16 g, 0 total refill(s), Maintenance, 1 spray(s) Inhale Daily, Pharmacy: [facility] fluconazole(fluconazole 150 mg oral tablet), 1 tab(s), Oral, As Directed, X 1 days, # 1 tab(s), 0 total refill(s), Acute, 09/23/2024, 1 tab(s) Oral As Directed,x1 days, Pharmacy: [facility], Fungal, prophylaxis 2. Attention-deficit hyperactivity disorder, [...] tab(s) Oral Daily,Instr:Daily in the afternoon, Pharmacy: [facility] [Not filled] dextroamphetamine-amphetamine( dextroamphetamine-amphetamine 20 mg oral tablet), 1 tab(s), Oral, Daily, Daily at 6 AM, # 90 tab(s), 0 total refill(s), Maintenance, 1 tab(s) Oral Daily,Instr:Daily at 6 AM, Pharmacy: [facility] [Not filled] dextroamphetamine-amphetamine( dextroamphetamine-amphetamine 30 mg oral tablet), 1 tab(s), Oral, Daily, Daily at 10 AM, # 90 tab(s), 0 total refill(s), Maintenance, 1 tab(s) Oral Daily,Instr:Daily at 10 AM, Pharmacy: [facility] [Not filled] Capt Yadiel GARNER), [facility] Ground Nuclear Weapons Assembly Officer Physician, PGY-[address] [place] [address] [employer] [address] [facility] Family Medicine Residency Program [address] [facility], [address], [place] [address] Addendum by KONRAD CLEMENS DO on September 23, 2024 10:19:24 PAPER COATING SUPERVISOR I certify that I was present for case discussion in the Family Medicine preceptor room at the time of this encounter. I have reviewed the note and agree with the findings, assessment, and plan except as I have documented below. Follow up as listed. All labs/imaging/consults to be followed by the ordering provider. Maj Praveena, [facility], Staff Physician Extracted from:Title: [facility] [place] Author: CHRISTY SMITH MD [...] tab(s) Oral Daily,Instr:Daily in the afternoon, Pharmacy: [facility] [Not filled] dextroamphetamine-amphetamine( dextroamphetamine-amphetamine 20 mg [...] # 360 tab(s), 0 total refill(s), Maintenance, CaseId:[id number];Take 2 tablets twice daily (max dose 4 tablets/day), Take 2 tablets twice daily (max dose 4 tablets/day), Pharmacy: DO... Basic Metabolic Panel Hemoglobin A1c Lipid Panel Thyroid Stimulating Hormone Capt Christy Smith DO Family Medicine Faculty Physician [facility] Medical [facility], [facility] Ad[place] Extracted from:Title: [facility] [place], weight loss Author: CHRISTY SMITH MD [...] Due for routine screening - referred to [facility] Ordered: Referral Request 2.0 - [...] tab(s) Oral Daily,Instr:Daily at 6 AM, Pharmacy: [facility] [Not filled] dextroamphetamine-amphetamine( dextroamphetamine-amphetamine 30 mg oral tablet), 1 tab(s), Oral, Daily, Daily at 10 AM, # 90 tab(s), 0 total refill(s), Maintenance, 1 tab(s) Oral Daily,Instr:Daily at 10 AM, Pharmacy: [facility] [Not filled] Capt Christy Smith DO Family Medicine Faculty Physician [address] [place] [address], [facility] [employer] Extracted from:Title: Office Clinic Note [...] AM Scheduled Provider: CHRISTY SMITH MD Location: [address] [place] [address] Appointment Type: PC FTR Future Scheduled TestsLaboratoryTSH w/ Reflex FT4 and Total T3 06/11/25FSH and LH [id number] 06/11/25CBC w/ Diff 06/11/25Comprehensive Metabolic Panel 06/11/25 10/01/2025 Unknown Organization Functional Status Combined list of recent functional and cognitive assessments recorded at [facility] [employer] [facility] ([facility]VA Functional Ness Measurement (FIM) Scale: 1 = Total Assistance (Subject = 0% +), 2 = Maximal Assistance (Subject = 25% +), 3 = Moderate Assistance (Subject = 50% +), 4 = Minimal Assistance (Subject = 75% +), 5 = Supervision, 6 = Modified Ness (Device), 7 = Complete Ness (Timely, Safely). Assessment Date/Time Source Assessment Type Assessment Skill Assessment Score Assessment Details No data available for this section
--- OUTSIDE RECORDS SUMMARY | 2025-10-01 03:29 | XMS_ITS | Clinical Summary ---
Author Organization [facility] Health Address [address] [place] [address] Care Team Providers Care Activities Coordinator Name Role Phone Unavailable Primary Care Provider [...]
--- OUTSIDE RECORDS SUMMARY | 2025-10-01 03:29 | XMS_ITS | Encounter Summary ---
Author Organization [facility] Health Address [address] [place] [address] Care Team Providers Care Tin Worker Name Role Phone Unavailable Primary Care Provider Unavailabl e Prior Encounters Date Type Department Care Team Description 10/26/2019 Converted CPS Chart Documents [facility] [address] [place] [phone] <No scans attached> 10/26/2019 Converted 13x Documents [facility] [id number] [place] [phone] <No scans attached> Plan of Treatment [...]
--- NOTE | 2025-10-01 03:46 | ED_ITS ---
HPI - Abdominal Pain General Chief Complaint: Abdominal Pain Stated Complaint: L side abd pain; kidney stone Time Seen by Provider: 10/01/25 03:18 Source: patient Mode of arrival: ambulatory Limitations: no limitations History of Present Illness HPI narrative: Patient presents with report of 10/10 sharp left lower quadrant abdominal pain that radiates to her back. This had never happened before except for earlier this week at which time she diagnosed with a kidney stone at the [facility] admitted for this. She denies any fevers or chills. No procedure was performed and ultimately patient was discharged with prescriptions for tamsulosin which she has been taking. She has tried straining her urine. She notes that she was prescribed antibiotics although the pharmacy could not fill them until today so she has not been taking them. She states that she was given pain medication which she believes was Tylenol with codeine in last dose was at 6:00 p.m. but this did not seem to help. She was experiencing nausea but has vomited. She has been trying to increase water intake but states that she has had decreased urine output since 10:00 p.m. only occasionally dribbling when she tries to go. She continues to experience dysuria as well as increased frequency of urination however. Related Data Home Medications ?Medication ?Instructions ?Recorded ?Confirmed ?Last Taken ?Type dextroamphetamine-amphetamine 10 10 mg PO DAILY 09/28/25 09/27/25 History mg tablet dextroamphetamine-amphetamine 20 20 mg PO DAILY@0630 1 11/29/24 09/28/25 09/27/25 History mg tablet dextroamphetamine-amphetamine 30 30 mg PO DAILY 09/28/25 09/27/25 History mg tablet progesterone 1 cap PO HS 09/28/25 5 Unknown History tirzepatide 7.5 mg subcut WEEKLY 5 09/28/25 09/21/25 History Allergies Allergy/AdvReac Type Severity Reaction Status Date / Time No Known Allergies Allergy Verified 09/28/25 20:29 [facility] Past Medical History Medical History Kidney stone on left side diagnosed 09/28/25 Family History Family History Mother Bipolar 1 disorder Father Heart attack Diabetes mellitus Social History Social History Smoking status: Never smoker Alcohol intake: current Drinks per week: 2 Substance use: never Substance use type: does not use Lack of Transportation: No Lack of Food: Never True Current Housing: I Have Housing Concerned About Future Housing: No Difficulty Paying Gas/Electric Bills: No Difficulty Paying for Meds: No Currently Unemployed: No Education: Master's Degree or Higher Difficulty w/ Childcare or Family Care: No Occupation/Education: occupation Additional occupation/education comments: works from home for the [employer] care concerns: No Exam 2 Narrative: GENERAL: Well-appearing, well-nourished HEAD: Normocephalic, atraumatic. EYES: Non injected, non icteric ENT: Nares clear, no rhinorrhea or epistaxis. Gross auditory acuity intact. NECK: Supple. No meningismus. CHEST: Speaking in full sentences. No respiratory distress. HEART: Regular rate and rhythm. . ABDOMEN: Soft, nondistended. TTP in LLQ but No rigidity or guarding. Not peritoneal EXTREMITIES: Normal range of motion. No lower extremity edema. SKIN: Warm, dry, no rash. Back: Equivocal CVA tenderness bilaterally NEURO: No focal deficits. Alert and oriented. Answering questions. Following commands. Normal speech without aphasia or dysarthria. PSYCH: Congruent mood and affect. Course Vital Signs Vital signs: Vital Signs Temperature 97.5 F L 10/01/25 02:19 Pulse Rate 99 10/01/25 02:19 Respiratory Rate 16 10/01/25 02:19 Blood Pressure 132/87 10/01/25 02:19 Pulse Oximetry 97 10/01/25 02:19 Temperature 97.5 F L 10/01/25 02:19 Pulse Rate 70 10/01/25 10:55 Respiratory Rate 16 10/01/25 10:55 Blood Pressure 131/90 10/01/25 10:55 Pulse Oximetry 96 10/01/25 10:55 MDM MDM Narrative Medical decision making narrative: Patient presents with persistent left lower quadrant abdominal pain that radiates to her back. Recently seen for the same earlier this week and diagnosed with a ureteral stone at the UVJ. She had been admitted/observation admission for this but ultimately discharged with conservative management recommendations/no procedure performed. In the emergency department they are afebrile with vital signs within normal limits. Morphine ordered. CT from 09/28/25: IMPRESSION: 1. Obstructing 5 mm left UVJ stone with mild hydronephrosis and delayed left renal nephrogram. 09/29/25 Xray IMPRESSION: 1. Contrast opacified mild left hydroureteronephrosis extending to the ureterovesicular junction and presumably obscuring a persistently obstructing stone at this location. Urology consult note from 09/29/25: KUB today shows the stone is still at the uvj. patient has had pain relief with no meds today. -Patient is ok to discharge. She is to strain her urine and bring stone with her to outpatient follow up in 2-4 weeks. -She should return to ER for fever/chills or intractable pain. -She should be discharged with tamsulosin daily, pain control meds, and antibiotic coverage. tailor to culture once resulted. Urine culture from 09/28/25 resulted Mixed urogenital jesus manuel 10,000-25,000 colony forming units per mL CBC with mild abnormalities on the differential but without leukocytosis, anemia, thrombocytopenia. Patient has an GIFTY. 1L IV fluids ordered. Mild hyponatremia, previously seen. Urine orange with microscopic hematuria, other indices unable to be determined due to appearance. She has been taking Pyridium. CT results as below (there is a signficant delay in obtaining read from Stat [facility]). Patient reassessed and she states the first dose seemed to take the edge off at first but pain has returned, will re-dose. Discussed with urologist mohs surgeon Dr Dominguez who notes That based on the size and location it should respond to conservative therapy and she has not quite failed this given that she was only recently just seen. Says given otherwise hemodynamically stable without infection, should be discharged home and give it several more days. He notes that she can receive a dose of Lasix in the ED. Patient had stated she was Rx Tylenol with codeine but she misunderstood as she has Rock[place] 5-325 listed on [place] med list and in EMR although without prescription information and Prescription Monitoring Database is also reviewed and no controlled substances have been dispensed since July per this. She does note she has been getting constipated with this so Miralax ordered and will be prescribed in addition to other bowel regimen medications. She is prescribed acetaminophen and oxy instead as stronger opiate therapy and advised to discontinue her Rock[place]. Advised follow up with urology as indicated. Differential Diagnosis Differential Diagnosis: GIFTY/acute renal failure; UTI/pyelonephritis; ureteral stone w/ wo obstruction and/or hydronephrosis/hydroureteronephrosis; considered septic/infected stone Medical Records I have reviewed the following patient records and this information was taken into consideration when formulating the assessment and plan.: previous ER visits and previous hospitalizations Lab Data MDM Lab Attestation statement: I personally reviewed the patient's lab results. Lab results narrative: Lipase within normal limits 10/01/25 05:32 10/01/25 05:32 Labs: Lab Results 10/01/25 10/01/25 Range/Units 05:32 06:12 WBC 8.7 (4.5-10.0) K/mm3 RBC 4.21 (4.2-5.4) M/mm3 Hgb 12.5 (12.0-15.0) g/dL Hct 37.2 (37.0-47.0) % MCV 88.4 (80-100) fl MCH 29.7 (26-34) pg MCHC 33.6 (32-36) g/dl RDW 12.6 (11.5-14.5) % Plt Count 337 (150-375) k/mm3 MPV 10.1 (7.4-10.4) fl Immature Gran % (Auto) 0.5 (0-0.5) % Neut % (Auto) 68.0 (45.5-73.1) % Lymph % (Auto) 22.1 (18.3-44.2) % [place] % (Auto) 7.6 (2.6-8.5) % Eos % (Auto) 1.6 (0-4.4) % Baso % (Auto) 0.2 (0.2-1.2) % Lymph # (Auto) 1.92 (0.9-3.2) K/mm3 [place] # (Auto) 0.7 H (0.1-0.6) K/mm3 Eos # (Auto) 0.1 (0-0.3) K/mm3 Baso # (Auto) 0.0 (0.0-0.1) K/mm3 Abs Immat Gran (auto) 0.04 H (0.00-0.031) K/mm3 Absolute Neuts (auto) 5.9 (1.3-6.7) K/mm3 Absolute Nucleated RBC 0.000 (0.0-0.012) K/mm3 Nucleated RBC % 0.0 (0.0-0.2) % Sodium 136 L (137-145) mmol/L Potassium 3.6 (3.4-5.0) mmol/L Chloride 107 (98-107) mmol/L Carbon Dioxide 21 L (22-30) mmol/L Anion Gap 8 (4-12) mmol/L BUN 10 (7-17) mg/dL Creatinine 1.24 H (0.7-1.0) mg/dL Estim Creat Clear Calc Not Reportable Estimated GFR 46 L (59 - ) Glucose 103 (65-110) mg/dL Calcium 8.9 (8.4-10.2) mg/dL Total Bilirubin 0.3 (0.2-1.3) mg/dL AST 23 (14-36) U/L ALT 16 (6-35) U/L Alkaline Phosphatase 75 (38-126) U/L Total Protein 7.1 (6.3-8.2) g/dL Albumin 3.8 (3.5-5.1) g/dL Lipase 82 (23-300) U/L Urine Color [place] H (Yellow) Urine Appearance Clear (Clear) Urine pH 5.0 (5.0-9.0) Ur Specific [place] 1.034 (1.001-1.035) Urine Protein TNP Urine Glucose (UA) TNP Urine Ketones TNP Ur Blood (Man) TNP Urine Nitrate TNP Urine Bilirubin TNP Urine Urobilinogen TNP Add Ur Microanalysis Reviewed Leukocyte Esterase Rfl TNP Urine RBC 3-5 H (0-2) /hpf Urine WBC 0-5 (0-3) /hpf Ur Squamous Epith Cells None seen (Few) /hpf Calcium Oxalate Crystal Many (None) /hpf Urine Bacteria None seen /hpf Urine Casts 0-2 POC Urine HCG, Qual Negative (Negative) Imaging Data Radiologist's impression: ITS Impressions Abdomen/Pelvis CT 10/01/25 09:30 IMPRESSION: 1. No significant change from 3 days prior with persistent 4 mm stone left UVJ with hydronephrosis. CT abd & pelvis w/o contrast stat rad: Continued 4 mm stone left ureterovesical junction causing mild hydroureteronephrosis. Incidental findings: Punctate stone lower pole left kidney. Mild hazy stranding along the left ureter. There some increased attenuation within the left ureter likely representing residual contrast from the prior exam. Comparison 09/28/2025. Discharge Plan Discharge Clinical Impression: Dysuria, GIFTY (acute kidney injury), Calculus of ureterovesical junction (UVJ), Constipation Patient Disposition: Home Condition: Stable Instructions: Antibiotic Form, Constipation (ED), Acute Kidney Injury (DC), High Fiber Diet (ED), Narcotic Safety (ED), How to Strain Your Urine (ED), Dysuria (ED), Ureteral Stones (ED) Additional Instructions: You can continue to take the Pyridium as prescribed. Continue to strain your urine and use the tamsulosin. Follow up with urology. Call urology on Saturday if still having symptoms/do not feel you have passed the stone. It is safe to take maximum 4000mg/day of acetaminophen. Instead of the [place] 5-325, you are being prescribed oxy. Do NOT take both of these opiates at the same time; discontinue the [place]. But you should be on a bowel regimen while on opiates - both stool softeners like fiber/metamucil/psyllium, supplementing with Miralax, and using magnesium citrate as a laxative if needed. Return to the emergency department with any new worsening symptoms such as intractable pain, intractable nausea / vomiting, fever greater than 100.4? F, etc.. Patient Language: Greenlandic Prescriptions: New acetaminophen 500 mg capsule 1,000 mg PO Q6H PRN (Reason: pain) Qty: 30 0RF oxycodone 5 mg tablet 5 mg PO Q8H PRN (Reason: pain) Qty: 12 0RF polyethylene glycol 3350 [Miralax] 17 gram/dose powder 17 g PO DAILY Qty: 119 0RF psyllium husk [Metamucil] 0.4 gram capsule 0.4 g PO DAILY Qty: 30 0RF magnesium citrate Solution 150 ml PO DAILY PRN (Reason: constipation) Qty: 296 0RF No Action dextroamphetamine-amphetamine 20 mg tablet 20 mg PO DAILY@0630 dextroamphetamine-amphetamine 30 mg tablet 30 mg PO DAILY Patient Comments: 10 am dextroamphetamine-amphetamine 10 mg tablet 10 mg PO DAILY Patient Comments: 3pm progesterone 200 mg 1 cap PO HS tirzepatide 16.6 mg 7.5 mg subcut WEEKLY Rx Instructions: weekly on saturday acetaminophen 325 mg Tablet 650 mg PO Q4H PRN (Reason: Mild Pain (1-3) Or Fever) 30 Days Qty: 100 0RF tamsulosin 0.4 mg Capsule 0.4 mg PO QAM 14 Days Qty: 14 0RF hydrocodone-acetaminophen 5-325 mg tablet 1 tablet PO Q6H PRN (Reason: pain) Qty: 12 0RF cefpodoxime 200 mg tablet 200 mg PO BID Qty: 14 0RF Rx Instructions: must administer with a meal/food fluconazole 150 mg tablet 150 mg PO ONCE Qty: 1 0RF Rx Instructions: as a single dose Follow-up/Referrals: Christy Smith [Other] Colin Dominguez MD [Physician, Urology] Stand Alone Forms: Work/School Release IP Time of Disposition: 08:50
[2025-10-01 05:43] LABS: Hematocrit 37.2 % (37.0-47.0); Hemoglobin 12.5 g/dL (12.0-15.0); Immature Granulocyte Percent A 0.5 % (0-0.5); Lymphocytes Absolute Auto 1.92 K/mm3 (0.9-3.2); Mean Corpuscular HGB Conc 33.6 g/dl (32-36); Mean Corpuscular Hemoglobin 29.7 pg (26-34); Mean Corpuscular Volume 88.4 fl (80-100); Nucleated Red Blood Cells Absolute Auto 0.000 K/mm3 (0.0-0.012); Nucleated Red Blood Cells Perc 0.0 % (0.0-0.2); Platelet Count Result 337 k/mm3 (150-375); Red Blood Count 4.21 M/mm3 (4.2-5.4); White Blood Count 8.7 K/mm3 (4.5-10.0)
[2025-10-01 06:01] LABS: Alanine Aminotransferase 16 U/L (6-35); Albumin Level 3.8 g/dL (3.5-5.1); Alkaline Phosphatase 75 U/L (38-126); Anion Gap 8 mmol/L (4-12); Aspartate Amino Transferase 23 U/L (14-36); Bilirubin,Total 0.3 mg/dL (0.2-1.3); Blood Urea Nitrogen 10 mg/dL (7-17); Calcium 8.9 mg/dL (8.4-10.2); Carbon Dioxide 21 mmol/L (22-30); Chloride 107 mmol/L (98-107); Estimated Glomerular Filt Rate 46; Glucose 103 mg/dL (65-110); Lipase 82 U/L (23-300); Potassium 3.6 mmol/L (3.4-5.0); Sodium 136 mmol/L (137-145); Total Protein 7.1 g/dL (6.3-8.2)
[2025-10-01] MEDS: MORPHINE SULFATE (*CRX) 4 MG/ML INJ IV PUSH (06:13)
[2025-10-01 06:15] LABS: BEDSIDEPREGUCG Negative (Negative)
[2025-10-01 06:25] LABS: Add Urine Microscopic? YES; Appearance Urine Clear (Clear); Need Manual Microscopic Reviewed; Non Pathogenic Casts 0-2; Specific Grav Ur 1.034 (1.001-1.035)
[2025-10-01 07:01] VITALS: BP 152/93; PULSE 75; RESP 16; O2SAT 95
[2025-10-01] MEDS: SODIUM CHLORIDE 0.9% IV 1,000 ML 999 ML IV CONT (08:53)
[2025-10-01] MEDS: HYDROmorphone HCL INJ (*CRX) 1 MG/ML SYR 0.5 MG IV PUSH (08:54)
[2025-10-01] MEDS: FUROSEMIDE INJ 40 MG/4 ML VIAL IV PUSH (08:56)
[2025-10-01 09:00] VITALS: BP 150/95; PULSE 78; RESP 16; O2SAT 97
[2025-10-01] MEDS: TAMSULOSIN HCL 0.4 MG CAPSULE PO (09:06)
[2025-10-01] MEDS: KETOROLAC 15 MG/ML VIAL (*BKC) IV PUSH (09:06)
[2025-10-01 10:55] VITALS: BP 131/90; PULSE 70; RESP 16; O2SAT 96
== END 2025-10-01 10:55 | disposition home or self-care (01) ==
PROVIDERS: Emergency Provider Student in an Organized Health Care Education/Training Program
DX: N13.2 Hydronephrosis with renal and ureteral calculous obstruction (principal); N17.9 Acute kidney failure, unspecified; K59.00 Constipation, unspecified
CPT/HCPCS: 36415; 74176; 80053; 81001; 81025; 83690; 85025; 96361; 96374; 96375; 99284; A9270; J1171; J1885; J1938; J2270; J7030